=== PATIENT | female | born 1945 | race Caucasian/White ===

== ENCOUNTER 2021-04-28 14:55 | Outpatient (REF) | payer MEDICARE, MEDICAID, SELFPAY ==
--- NOTE | ~2021-04-28 | MM_ITS ---
EXAMINATION: MM SCREENING DIGITAL BREAST TOMOSYNTHESIS, BILATERAL CLINICAL INFORMATION: Screening. Asymptomatic. The lifetime risk of breast cancer based on the Tyrer-Cuzick Model is 2%. COMPARISON: Mammography: 04/09/2019, 08/19/2016 TECHNIQUE: Digital breast tomosynthesis is performed in both the craniocaudal and mediolateral oblique views along with computer-aided detection (CAD). Synthesized 2D images are generated from the tomosynthesis. FINDINGS: There are scattered areas of fibroglandular density (ACR BI-RADS breast composition Category b). There are no significant masses, abnormal calcifications, or other abnormalities. Parenchymal pattern is similar to prior exams. No developing density. The axilla and skin contours are unremarkable. MM/MM tomosynthesis screening BI IMPRESSION: No mammographic evidence of malignancy. ASSESSMENT: BI-RADS 1: Negative RECOMMENDATION: Routine annual mammography screening. This patient's information was entered into a reminder system with a target due date for their next mammogram.
== END 2021-04-28 14:56 | disposition home or self-care (01) ==
LOC: HO.MAMMO 14:55
PROVIDERS: PCP Family Medicine; Visit Provider Family Medicine
DX: Z12.31 Encounter for screening mammogram for malignant neoplasm of breast (principal)
CPT/HCPCS: 77063; 77067

== ENCOUNTER 2021-10-05 19:49 | Emergency (ER) | payer MEDICARE, MEDICAID, SELFPAY ==
--- NOTE | ~2021-10-05 | XR_ITS ---
EXAMINATION: XR HAND, LEFT CLINICAL INFORMATION: Hand bruised/pain. COMPARISON: None TECHNIQUE: PA, lateral, and oblique views of the left hand. FINDINGS: Questionable subtle nondisplaced fracture in the radial surface of the middle phalanx of the fifth digit. No other fractures. Alignment is anatomic. Nonspecific cystic changes in the lunate. Diffuse soft tissue swelling. No unexpected foreign bodies. XR/XR hand LT min 3V IMPRESSION: Questionable subtle nondisplaced fracture in the radial surface of the middle phalanx of the fifth digit. Correlate for tenderness. Lunate subchondral cysts are nonspecific but likely related with degenerative changes. Correlate for pain.
[2021-10-05 21:11] VITALS: BP 115/96; PULSE 68; RESP 18; TEMP 36.8; O2SAT 99; BMI 27.6
--- NOTE | 2021-10-05 21:46 | ED_ITS ---
HPI - General Adult General Chief complaint: General Medical Stated complaint: Lump on right hand Time Seen by Provider: 10/05/21 21:46 Source: patient and family Mode of arrival: ambulatory Limitations: no limitations History of Present Illness HPI narrative: This is a 76-year-old female past medical history significant for osteopenia, hypertension, anemia currently taking daily aspirin presenting to the emergency department with bruising to the dorsal aspect of the left hand that began suddenly earlier today. According to daughter and patient did not hit her hand on anything. She reports pain if she touches the bruise. However she states that there is no numbness, tingling, loss of sensation to fingers hand or wrist. Patient tells me she can move her wrist and her fingers per usual. She is worried because she is on aspirin. No history of PE or DVT. Patient denies chest pain, shortness of breath, nausea, vomiting, fevers, chills, calf pain, calf swelling. Onset (ago): day(s) (1) Location: left and upper extremity Radiation: non-radiation Pain Consistency: other (only if she touches bruise ) Relieving factors: none Exacerbating factors: none Associated symptoms: denies other symptoms Treatments prior to arrival: none Related Data Allergies Allergy/AdvReac Type Severity Reaction Status Date / Time No Known Allergies Allergy Verified 10/05/21 21:10 Review of Systems Review of Systems: Constitutional : No Weight loss, No Fever, No Chills, No Fatigue, No Malaise ENT/Mouth : No sore throat, No Rhinorrhea Eyes: No Eye Pain, No Swelling, No Redness Cardiovascular : No Chest Pain, No SOB, No Dyspnea on Exertion, No Orthopnea, No Edema, No Palpitations Respiratory : No Cough, No Sputum, No Wheezing Gastrointestinal : No Nausea, No Vomiting, No Diarrhea, No Constipation, No abdominal Pain, No Hematochezia, No Melena Genitourinary : No Dysuria, No Urinary Frequency, No Hematuria, Musculoskeletal : No joint pain, No Myalgias, No Joint Swelling Skin : No Skin Lesions, No rash Neuro : No Weakness, No Numbness, No Dizziness, No Headache Psych : No Anxiety/Panic, No Depression Heme/Lymph: + Bruising, No Bleeding,No Lymphadenopathy All other systems reviewed and are negative PMFSH Past Medical History Attestation statement: The following information was validated with the patient. Source: old records reviewed and nursing notes reviewed Surgical History (Updated 09/20/21 @ 09:51 by JOSHUA Palomo) History of cholecystectomy Social History Social History Advance Directives: No Advance Directives Information Provided: No Physical Exam ED Vital Signs: Vital Signs - 24 hr 10/05/21 21:11 Temperature 98.2 F Pulse Rate 68 Respiratory Rate 18 Blood Pressure 115/96 H Pulse Oximetry 99 BMI result Body Mass Index 27.6 VSS Appearance: Alert.? Oriented X3.? No acute distress.? Head: Normocephalic, atraumatic, no step-offs or deformities Eyes: Pupils equal, round and reactive to light.? ENT: Pharynx normal.? Neck: Normal inspection.? Neck supple.? CVS: Normal heart rate and rhythm.? Pulses normal.? Respiratory: No respiratory distress.? Breath sounds normal.? Abdomen: Soft and nontender.? Skin: Skin warm and dry.? Normal skin color.? Normal skin turgor.?+ ecchymosis to the left dorsal aspect of hand images below. Bilateral upper extremities with 2+ radial pulses. Less than 2nd capillary refill to all digits in upper extremities. Sensory and motor intact to bilateral upper extremities, hands and fingers. Bilateral upper extremities warm, pink and dry. No pain with range of motion of fingers, wrists, or palpation over metacarpals. Extremities: No lower extremity edema.? No calf ttp. 5/5 strength to bilateral upper and lower extremities Back: No midline tenderness, no C-spine tenderness, full range of motion, no CVA tenderness bilaterally Neuro: Oriented X 3.? No motor deficit.? No sensory deficit. CN 2-12 intact Course Course Course Narrative: Discussed case with Dr. Woods. Susy contusion. Will apply a compression dressing and do an xray of left hand. Reevaluation(s) Reevaluation #1: X-ray of them a this digit shows a middle phalanx subtle nondisplaced fracture. Patient likely hit her hand on something she does not recall a specific instance however she says it is possible. Advised her to follow-up with her PCP tomorrow and return with new or worsening symptoms. Pressure dressing has been assessed applied over the hematoma. And a finger splint has been applied to the left 5th digit. Daughter and patient aware of worrisome signs. They will call her PCP 1st thing tomorrow morning. I gave them a copy of the x-ray. Time: 23:10 Medical Decision Making MDM Narrative Medical decision making narrative: 2149 76 yo female pmhx osteopenia, HLD, HTN, anemia presents to ed w/ atraumatic bruising to left hand. Patient on ASA PE- bruise to left hand with pain to palpation overlying bruise. Sensation to of bilateral finger tips intact. Capillary refill less than 2 seconds bilateral radial pulses 2+ equal bilateral. No pain with range of motion of wrist. History and physical examination not consistent with acute arterial occlusion, unlikely that this is a venous embolism. Likey contusion Plan- xray, no need for US at this time neuro intact, strong pulses not consistent with arterial occlusion. Unlikely venous emboli Medical Records Medical records reviewed: Yes I reviewed the patient's medical records. Lab Data Lab results reviewed: Yes I reviewed the patient's lab results. Critical Care Time Critical Care Time Critical Care Time: No Discharge Plan Discharge Clinical Impression: Hematoma, Contusion Patient Disposition: Home, Self-Care Instructions: R.I.C.E. Treatment (ED), Bone Bruise (ED) Additional Instructions: Take your medications as prescribed. Follow-up with your primary care provider tomorrow, you may want to get an outpatient ultrasound if this dosent improve or worsens. Return to the emergency department with new or worsening symptoms. Such as loss of sensation, numbness, tingling, severe pain, arm swelling, shortness of breath, chest pain, fevers chills, weakness. In case of emergency call 911 [place] medicamentos seg?n lo prescrito. Jack un seguimiento con love proveedor de atenci?n primaria ma?marcy, es posible que desee hacerse leopoldo ecograf?a ambulatoria si esto no mejora o empeora. Regrese al departamento de emergencias con s?ntomas nuevos o que empeoran. [place] p?rdida de sensibilidad, entumecimiento, hormigueo, dolor intenso, hinchaz?n de brazos, dificultad para respirar, dolor de pecho, fiebre, escalofr?os, debilidad. En joss de emergencia llama al 911 Referrals: Physician,Lashaun J [Primary Care Provider] - 2 days Stand Alone Forms: Work/School Release Print Language: Northern Irish
--- NOTE | 2021-10-05 23:23 | PC.NURSE ---
PT LEFT HAND BRUISE PRESSURE DSD APPLIED FINGER SPLINT IN PLACE TO LEFT PINKY FINGER.
== END 2021-10-05 23:27 | disposition home or self-care (01) ==
PROVIDERS: Emergency Provider Student in an Organized Health Care Education/Training Program
DX: S60.222A Contusion of left hand, initial encounter (principal); S62.657A Nondisplaced fracture of middle phalanx of left little finger, initial encounter for closed fracture; X58.XXXA Exposure to other specified factors, initial encounter; I10 Essential (primary) hypertension; Z79.82 Long term (current) use of aspirin; Y93.9 Activity, unspecified; Y92.9 Unspecified place or not applicable; Y99.9 Unspecified external cause status
CPT/HCPCS: 29130; 73130; 99283

== ENCOUNTER 2021-10-14 13:51 | Outpatient (REF) | payer MEDICARE, MEDICAID, SELFPAY ==
--- NOTE | ~2021-10-14 | XR_ITS ---
EXAMINATION: XR HAND, LEFT CLINICAL INFORMATION: Fracture COMPARISON: Previous x-ray September 2021 TECHNIQUE: PA, lateral, and oblique views of the left hand. FINDINGS: The questioned fracture of the middle phalanx of the fifth finger on September 2021 exam is not appreciated. No fracture or dislocation is seen. The joint spaces are normal. Soft tissues are normal. There are small cysts lunate and triquetrum. XR/XR hand LT min 3V IMPRESSION: No fracture seen.
== END 2021-10-14 13:52 | disposition home or self-care (01) ==
LOC: HO.XRAY 13:51
PROVIDERS: Absent Provider Family Medicine; PCP Family Medicine; Visit Provider Registered Nurse Community Health
DX: S62.657D Nondisplaced fracture of middle phalanx of left little finger, subsequent encounter for fracture with routine healing (principal)
CPT/HCPCS: 73130

== ENCOUNTER 2021-11-26 10:07 | Outpatient (REF) | payer MEDICARE, MEDICAID, SELFPAY ==
--- NOTE | ~2021-11-26 | MM_ITS ---
EXAMINATION: BONE DENSITOMETRY CLINICAL INDICATION: Other disorders of bone density and structure. COMPARISON: None (current study represents initial baseline exam). TECHNIQUE: Using a [employer] DXA System (software version: 13.1) manufactured by [employer], dual-energy x-ray absorptiometry was performed of the lumbar spine and left hip. The images are of good technical quality. Summary results are attached. FINDINGS: AP SPINE L1-L4: BMD 0.935 g/cm2, Z-score -0.3, T-score -2.0, osteopenia. LEFT FEMUR, NECK: BMD 0.805 g/cm2, Z-score 0.3, T-score -1.7, osteopenia. LEFT FEMUR, TOTAL: BMD 0.900 g/cm2, Z-score 0.9, T-score -0.9, normal. IDENTIFIED RISK FACTORS: Rheumatoid arthritis, history of fracture (adult). Early menopause, secondary osteoporosis. HISTORY OF FRACTURE: Wrist. MEDICATIONS: Calcium supplements or multivitamin, vitamin D. MM/XR DEXA axial skeleton IMPRESSION: 1. DIAGNOSIS: Osteopenia based on the lowest T-score value of -2.0 in the lumbar spine applying World Health Organization criteria. 2. 10-YEAR FRACTURE RISK PREDICTION, FRAX: Major osteoporotic fracture (clinical spine, forearm, hip or shoulder) 11.2%. Hip fracture 2.3%. 3. Treatment Recommendations: NOF guidelines recommend consideration for treatment in postmenopausal women and men age 50 and older presenting with the following: -A hip or vertebral (clinical or morphometric) fracture. -T-score less than or equal to -2.5 at the femoral neck or spine after appropriate evaluation to exclude secondary causes. -Low bone mass at the hip or spine and a 10-year fracture probability by FRAX of greater than or equal to 3% for hip fracture or greater than or equal to 20% for major osteoporotic fracture based on the [place] adapted WHO algorithm. 4. Other Recommendations: All treatment decisions require clinical judgment and consideration of individual patient factors, including patient preferences, comorbidities, previous drug use, risk factors not captured in the FRAX model (e.g. frailty, falls, vitamin D deficiency, increased bone turnover, interval significant decline in bone density) and possible under or overestimation of fracture risk by FRAX. Additional medical evaluation for secondary cause of low bone mineral density may be appropriate. FUTURE SCAN RECOMMENDATION: People with diagnosed cases of osteoporosis or at high risk for fracture should have regular bone mineral density tests. For patients eligible for Medicare, routine testing is allowed once every 2 years. The testing frequency can be increased to one year for patients who have rapidly progressing disease, those who are receiving or discontinuing medical therapy to restore bone mass, or have additional risk factors.
== END 2021-11-26 10:08 | disposition home or self-care (01) ==
LOC: HO.MAMMO 10:07
PROVIDERS: Visit Provider Family Medicine
DX: Z13.820 Encounter for screening for osteoporosis (principal); Z78.0 Asymptomatic menopausal state; M85.80 Other specified disorders of bone density and structure, unspecified site
CPT/HCPCS: 77080

== ENCOUNTER 2021-12-01 12:52 | Outpatient (REF) | payer MEDICARE, MEDICAID, SELFPAY ==
--- NOTE | ~2021-12-01 | XR_ITS ---
EXAMINATION: XR HAND, LEFT CLINICAL INFORMATION: Left hand pain COMPARISON: None TECHNIQUE: PA, lateral, and oblique views of the left hand. FINDINGS: There is minimal loss of PIP and DIP joint space but no bony erosive changes seen. There is mild flexion deformity. DIP joint second digit. No fracture, loose bodies or spurring noted. Mild soft tissue swelling PIP joints second through fifth digits. XR/XR hand LT min 3V IMPRESSION: Early mild degenerative arthritic changes PIP and DIP joints with mild flexion deformity DIP joints second digit. No acute fracture seen.
== END 2021-12-01 12:53 | disposition home or self-care (01) ==
LOC: HO.HOSX 12:52
PROVIDERS: PCP Family Medicine; Visit Provider Physician Assistant
DX: M19.042 Primary osteoarthritis, left hand (principal)
CPT/HCPCS: 73130; 99202

== ENCOUNTER 2021-12-28 13:43 | Outpatient (RCR) | payer MEDICARE, MEDICAID, SELFPAY ==
--- NOTE | 2021-12-28 16:11 | MHC.OT.OEV ---
[address] [phone] F: [phone] Occupational Therapy Evaluation Diagnosis: RA bilateral hands Date of Onset: 10/05/21 Date of Surgery: Attending Provider: Macie Harding Prescribed Treatment: Eval and alberto JAIME Follow Up Appointment: History of Current Condition: Pt reports left hand hematoma of unknown cause. Seen in the ED 10/05/21 Pt to follow up with her PCP Pt seen by [facility] on 12/01/21 due to pt complaint of continued hand pain and weakness Xray shows mild degenerative arthritis, PIP and DIP jts. no acute fx. Pt referred to OT Significant Medical History: HTN, Osteopenia, Osteoarthritis Precautions/Contraindications: Patient Goals: Hand strength to do my housework Hand Dominance: Right Observations: QuickDASH Score: 54 Prior Level of Function and Occupation Self Care, Employment, Leisure: Assist with heavy housekeeping, transportation ... Watches TV, light homemaking, indep with ADL Living Situation, Family and/or Social Support: Lives alone Family cleans weekly and provides transportation.. Current Level of Function and Occupation Self Care, Employment, Leisure: Inc difficulty due to inc in left hand pain Pt unable to specify Sleep: Reports severe difficulty due to severe pain Driving: NA Vision: Low vision. Needs large print Balance: Pain Assessment Pain Score: 8 Pain Scale Used: Numeric (0 - 10) Pain Location and Description: 4-8 ache Aggravating Factors: Worse at night .. whole body pain at night Alleviating Factors: Unable to specify Skin and Soft Tissue Assessment Skin and Soft Tissue: Atrophy Comments: Bilateral UE atrophy Left index DIP ext lag Nerve assessment Ulnar Nerve: Median Nerve: Radial Nerve: Comments: MMT 3+ shoulder to hand bilaterally Sensory Assessment Temperature: Light Touch: Proprioception: Vibration: Comments: Deferred Edema Assessment Upper Extremity: WNL Lower Extremity: Comments: Dexterity Assessment Dexterity: Not Tested Comments: Special Tests Comments: AROM(PROM) Strength Cervical Cervical Flexion: Cervical Extension: Cervical Lateral Flexion: Cervical Rotation: Comments: Shoulder Flexion: Extension: Abduction: Internal Rotation: External Rotation: Comments: WFL Flexion: Extension: Abduction: Internal Rotation: External Rotation: Comments: 3+/5 bilaterally Elbow Flexion: Extension: Pronation: Supination: Comments: WFL Flexion: Extension: Pronation: Supination: Comments: 3+ Wrist Flexion: Extension: Ulnar Deviation: Radial Deviation: Comments: WFL Flexion: Extension: Ulnar Deviation: Radial Deviation: Comments: R 4- L 3+ Thumb Thumb CMC Flexion: Thumb MCP Flexion: Thumb IP Flexion: Radial Abduction: Palmar Abduction: Miles (Kapandji 0-10): Comments: WFL Digits Index MCP: PIP: DIP: Long MCP: PIP: DIP: Ring MCP: PIP: DIP: Small MCP: PIP: DIP: Comments: WFL Gross Grasp: R 15 lb L 12 lb Lateral Pinch: R 3 lb L 3 lb Two-Point Pinch: R 2 lb L 1 lb Three-Jaw Ivan: R 4 lb L 2 lb Comments: Patient Education Primary Language: Interactive Web Developer Required: Yes Current Knowledge: Minimal, needs reinforcement Teaching Method: Demonstration Handouts Verbal Education Needs Identified on Evaluation: ADL's Equipment Use Exercise How did patient/family demonstrate learning? Patient verbalizes Needs reinforcement Barriers to Learning: None Readiness for Learning: Accepting Who was educated? Patient Comments: Plan of Care Assessment: Pt is a 76 yo female with c/o con't left hand weakness and pain since a contusion injury to her left hand two months ago. Pt hx includes osteopenia, OA, and HTN Pt previously living alone and indep with ADL and light homemaking with family assist for heavy housework and transportation Today pt presents with generalized weakness with severe bilateral hand weakness and left hand pain. Pt with benefit from OT for UE strengthening and ADL training for inc ease and inc independence with daily activities STG Duration: 2 wks Short Term Goals: Pt with demo indep with her HEP with minimal cuing Dec co of left hand pain to <2/10 at rest Tolerated left UE ther ex with yellow theraband and yellow therapy putty Report awareness of AD for jt protection and inc indep with homemaking tasks LTG Duration: 4 wks Correspondent Goals: Inc left quiller tender strength to > 15 lb Indep with HEP Dec left hand pain to 3/10 or less with use of AD as needed Quick DASH to <30 pts Frequency and Duration: The patient will be seen 1x wk x 4 wks Treatment Plan: Therapeutic Exercise Therapeutic Activity Home Exercise Program Patient Education ADL Training Ultrasound Paraffin Pt reports she is only available for OT 1x wk due to lack of transportation Electronically Signed By: Manda Murray OT CHT CHT Reviewed/agree with student documentation: N/A Therapist: Please sign and return to therapist, Thank you for your referral.
--- NOTE | 2022-01-17 08:54 | MHC.OT.DC ---
[address] [phone] F: [phone] Occupational Therapy Discharge Note Provider: Macie Harding Diagnosis: RA bilateral hands Date of Surgery: Date of Evaluation: 12/28/21 Date of Discharge: 01/17/22 Treatments to Date: 1 Cancellations to Date: No Shows to Date: 1 Discharge Status: Recommend MD Follow-up Discharge Summary: OT Eval completed. See eval for details Pt practice with beige putty soiled linen distributor and pinch. Issued for HEP Reviewed UE ROM ex with printed instructions issued for HEP [ End ]Pt no showed 01/06/22 and has no scheduled appt. Electronically Signed By: Manda Murray OT CHT CHT Reviewed/agree with student documentation: N/A Therapist: Please Sign and return to therapist, thank you for your referral.
== END 2022-01-17 08:54 | disposition home or self-care (01) ==
LOC: HO.OT 13:43
PROVIDERS: Visit Provider Physician Assistant
DX: M06.9 Rheumatoid arthritis, unspecified (principal)
CPT/HCPCS: 97110; 97166

== ENCOUNTER → 2021-12-29 10:59 | Outpatient (BNVA) | payer MEDICARE, MEDICAID, SELFPAY | PROVIDERS: PCP Family Medicine; Visit Provider Internal Medicine Cardiovascular Disease | DX: R07.2 Precordial pain (principal); R06.02 Shortness of breath | CPT/HCPCS: 93005; 99202 ==

== ENCOUNTER → 2022-01-04 09:56 | Outpatient (BNVA) | payer MEDICARE, MEDICAID, SELFPAY | PROVIDERS: PCP Family Medicine; Visit Provider Nurse Practitioner Family | DX: Z12.11 Encounter for screening for malignant neoplasm of colon (principal) | CPT/HCPCS: 99202 ==

== ENCOUNTER → 2022-01-18 10:07 | Outpatient (REF) | payer MEDICARE, MEDICAID, SELFPAY ==
--- NOTE | ~2022-01-18 | NM_ITS ---
Myocardial perfusion study Indication: Precordial chest pain to evaluate for myocardial ischemia Technique: The patient was brought in for a Lexiscan perfusion study on 01/18/2022. Patient performed low-level exercise and was injected 0.4 mg of Lexiscan intravenously. Within a minute of injection, 25 mCi of sestamibi was given intravenously. Images were obtained using the SPECT gamma camera interlaced with the gating device. Images were obtained in supine position. Resting perfusion study was performed on 01/21/2020.. Patient was administered 25 mCi of sestamibi intravenously at rest. Images were then obtained in supine position. Images obtained with and without CT attenuation. Total DLP 92 mGy-cm. Images were processed with the software and compared side to side in short axis, horizontal long axis and vertical long axis views. Findings: The stress perfusion study showed non attenuated images show minimally reduced uptake in the basal and mid inferior as well as mildly reduced uptake in the inferoapical wall of the LV myocardium. Attenuation corrected images show mildly reduced uptake in the apex of the LV myocardium.. The gated study shows normal LV systolic function with calculated LVEF of greater than 70 %. LV cavity is normal in size. The gated study shows normal systolic wall thickening and contraction of segments. Resting study shows non attenuated images show improved uptake in the inferoapical wall of the LV myocardium. Attenuation corrected images of the LV myocardium.. Gating at rest reveals normal systolic wall motion with ejection fraction at greater than 70 %. The findings are consistent with possible apical ischemia, equivocal finding. NM/NM stanton perf SPECT rest & str Impression: 1. Myocardial perfusion imaging study shows possible apical ischemia 2. Gated LVEF is greater than 70% 3. Transient ischemic dilatation not present EKG is nondiagnostic for ischemia
--- NOTE | 2022-01-18 10:13 | CA_ITS ---
Acquisition Time: 2022-01-18 10:35:36 Total Exercise Time: 00:02:00 Test Indications: HTN Medications: ASA LOSARTAN MELOXICAM METOPROLOL SIMVASTATIN Protocol: LEXISCAN Max HR: 097 BPM 67% of Pred: 144 BPM Max BP: 116/068 mmHG Max Work Load: 1.6 METS Pharmacological stress test with Lexiscan injection, while walking slow on treadmill, with mild sob, no chest discomfort, without arrythmia, with normotensive response to injection, with nondiagnostic EKG for ischemia. Nuclear images pending. Test reviewed with Dr Dillon. Referred By: Shin Ortega Overread By: FABIENNE MART
== END ==
LOC: HO.CARD 10:07
PROVIDERS: PCP Family Medicine; Visit Provider Internal Medicine Cardiovascular Disease
DX: R07.2 Precordial pain (principal)
CPT/HCPCS: 78452; 93017; A9500; J0280; J2785

== ENCOUNTER 2022-02-02 10:55 | Outpatient (REF) | payer MEDICARE, MEDICAID, SELFPAY ==
[2022-02-02 12:06] LABS: Anion Gap 10 (12-20); Blood Urea Nitrogen 25 mg/dL (9-16); Calcium 9.5 mg/dL (8.4-10.2); Carbon Dioxide 27 mmol/L (22-29); Chloride 108 mmol/L (96-108); Estimated Glomerular Filt Rate > 60; Glucose Random 99 mg/dL (60-115); Potassium 4.6 mmol/L (3.3-5.1); Sodium 140 mmol/L (135-145)
== END 2022-02-02 10:56 | disposition home or self-care (01) ==
LOC: HO.LAB 10:55
PROVIDERS: PCP Family Medicine; Visit Provider Internal Medicine Cardiovascular Disease
DX: R07.2 Precordial pain (principal); I10 Essential (primary) hypertension
CPT/HCPCS: 36415; 80048

== ENCOUNTER → 2022-02-08 14:02 | Outpatient (REF) | payer MEDICARE, MEDICAID, SELFPAY ==
--- NOTE | 2022-02-08 14:07 | CA_ITS ---
Transthoracic Echocardiogram Patient (Last, First, Middle): Carolin Avila, Gender: Female Date of : 1945 Age: 76 Procedure Date: 02/08/2022 Procedure Type: Transthoracic Echocardiogram Location: OP Height: 152.4 cm Weight: 65.77 kg BSA: 1.63 m2 Heart Rate: bpm BP: 160 / 75 mmHg Spine Surgeon: YOSSI Referring MD: Shin Ortega MD Symptoms: R06.02 - Shortness of breath Study Quality: Adequate ECG Rhythm: Sinus Conclusions: - The left ventricular systolic function is normal. The calculated ejection fraction is 66% by biplane method. - There is mild calcification of the aortic valve. - No obvious valvular pathology seen on this study. Findings Left Ventricle Normal left ventricular cavity size. There is normal left ventricular wall thickness. The left ventricular systolic function is normal. The calculated ejection fraction is 66% by biplane method. There is no evidence of regional wall motion abnormalities. Diastolic function is normal for age. Right Ventricle Normal right ventricular cavity size and systolic function. Atria The left atrium is mildly dilated. The right atrium is normal in size. Aortic Valve There is mild calcification of the aortic valve. There is no aortic valve stenosis. There is trace (trivial) aortic valve regurgitation. Mitral Valve The mitral valve appears normal. There is trace mitral valve regurgitation. There is no mitral valve stenosis. Pulmonic Valve The pulmonic valve is likely normal. Tricuspid Valve Normal tricuspid valve structure. There is trace tricuspid valve regurgitation. The pulmonary artery systolic pressure is normal. Great Vessels The aortic annulus, sinuses of valsalva, asc aorta, and aortic arch are normal in size. Venous The inferior vena cava is normal in size and collapses greater than 50% with inspiration. Pericardium/Pleural There is no evidence of pericardial effusion. Prior Study Comparison No significant change compared to prior study dated: 03/23/2018. Recommendations, Care & Conclusions No obvious valvular pathology seen on this study. Measurements 2D Linear Measurements IVSd: 0.91 0.6-0.9/0.6-1.0 cm LVIDd: 3.94 3.9-5.3/4.2-5.9 cm LVIDd Index: 2.42 2.4-3.2/2.2-3.1 cm/m2 LVIDs: 2.02 2.0-3.6 cm LVPWd: 0.95 0.7-1.1 cm LA Diam: 3.60 2.7-3.8/3.0-4.0 cm LAIDs Index: 2.21 1.5-2.3 cm/m2 LV Mass: 139.31 67-162/88-224 g LV Mass Index: 85.46 43-95/49-115 g/m2 LVOT Diam: 2.00 3.0+(-)1.3 cm 2D Systolic Function EF 4C: 66.10 >55% EF 2C: 62.60 >55% EF BiP: 66.30 >55% Mitral Valve MV Pk E: 0.84 MV PK A: 1.02 MV Decel Time: 273.00 E/A: 0.80 E'Lateral: 7.83 E'Medial: 6.64 E/E' Med: 12.70 E/E' Lat: 10.70 PHT: 80.00 MVA PHT: 2.75 Decel Petroleum: 3.08 Aortic Valve AoV Pk Noble: 1.90 AoV Mn Noble: 1.24 AoV VTI: 0.48 AoV Pk Grad: 14.00 Aov Mn Grad: 7.00 BRAD Cont.VTI: 2.08 LVOT LVOT Pk Noble: 1.09 LVOT Mn Noble: 0.72 LVOT VTI: 0.32 LVOT Pk Grad: 5.00 LVOT Mn Grad: 2.00 LVOT Diam: 2.00 LVOT Area: 3.14 Diastolic Function MV Pk E: 0.84 MV Pk A: 1.02 E/A: 0.80 E'Medial: 6.64 E/E' Med: 12.70 E' Laterial: 7.83 E/E' Lat: 10.70 Right Ventricle TAPSE (mm): 22.60 TVS' Noble: 10.10 Tricuspid Valve TR Pk Noble: 2.43 TR Pk Grad: 24.00 RA Press: 3.00 RVSP: 27.00 Great Vessels Aorta Sinus of Valsalva: 2.98 2.0-3.[address] Ridge: 2.43 1.7-3.4 cm Ao Asc: 3.10 2.1-3.4 cm Ao Arch: 2.80 Updated in Other Vendor System with Status of Final Jay Dillon MD electronically signed on 02/11/2022 11:43:48 AM with status of Final
== END ==
LOC: HO.CARD 14:02
PROVIDERS: PCP Family Medicine; Visit Provider Internal Medicine Cardiovascular Disease
DX: R06.02 Shortness of breath (principal)
CPT/HCPCS: 93306

== ENCOUNTER 2022-02-19 14:46 | Emergency (ER) | payer MEDICARE, MEDICAID, SELFPAY ==
--- NOTE | ~2022-02-19 | XR_ITS ---
EXAMINATION: XR KNEE, RIGHT CLINICAL INFORMATION: Right knee pain. No known injury COMPARISON: None TECHNIQUE: Four views of the right knee. FINDINGS: There is mild reduction in the tricompartment joint space with periarticular spurring. No acute fracture, loose bodies or bony erosive changes. There is minimal suprapatellar joint effusion. XR/XR knee RT 3V IMPRESSION: Degenerative arthritic changes of the tricompartment with mild suprapatellar joint effusion. No visible acute fracture or dislocation seen.
--- NOTE | ~2022-02-19 | US_ITS ---
EXAMINATION: US VENOUS ULTRASOUND WITH DOPPLER LOWER EXTREMITY, RIGHT CLINICAL INFORMATION: Calf pain COMPARISON: None TECHNIQUE: Ultrasound of the deep veins is performed from the hip to the calf with compression sonography and color and pulse Doppler assessment. Spectral analysis with color-flow imaging is performed. FINDINGS: There is normal venous compression and respiratory variation and augmented flow. The visualized common femoral vein, superficial femoral vein, profunda femoral vein, popliteal vein, and the trifurcation region shows no evidence of deep venous thrombosis. There is no significant popliteal fossa cyst. If the patient's symptoms persist, followup ultrasound in 5 days 7 days might be of value to exclude proximal propagation from a non-visualized calf vein. US/US venous duplex LE RT IMPRESSION: No DVT demonstrated in the right lower extremity.
[2022-02-19 14:54] VITALS: BP 153/64; PULSE 64; RESP 18; TEMP 36.8; O2SAT 99; BMI 29.5
--- NOTE | 2022-02-19 18:11 | ED_ITS ---
HPI - Extremity Problem General Chief complaint: Extremity Problem Stated complaint: swollen knee Time Seen by Provider: 02/19/22 16:22 History of Present Illness HPI Narrative: Patient complains of right knee pain for past several days without injury, no redness no fever no injury, she can walk on it but it does hurt to walk on Related Data Home Medications Medication Instructions Recorded Confirmed calcium acetate 667 mg tablet 1,334 mg PO TID 12/01/21 12/29/21 acetaminophen 650 mg 650 mg PO Q8H 12/29/21 12/29/21 tablet,extended release (Tylenol Arthritis Pain) aspirin 81 mg tablet,delayed 81 mg PO DAILY 12/29/21 12/29/21 release calcium carbonate 500 mg calcium 500 mg PO BID 12/29/21 12/29/21 (1,250 mg) tablet (Oyster Shell Calcium 500) ferrous gluconate 324 mg (38 mg 324 mg PO DAILY 12/29/21 12/29/21 iron) tablet meloxicam 15 mg tablet 15 mg PO DAILY 12/29/21 12/29/21 metoprolol tartrate 25 mg tablet 25 mg PO DAILY 12/29/21 12/29/21 simvastatin 40 mg tablet 40 mg PO QPM 12/29/21 12/29/21 cholecalciferol (vitamin D3) 50 50 mcg PO DAILY 01/04/22 mcg (2,000 unit) tablet terbinafine HCl 1 % topical cream appl topical BID 01/04/22 triamcinolone acetonide 0.1 % topical BID 01/04/22 topical ointment Previous Rx's Medication Instructions Recorded losartan 50 mg tablet 50 mg PO BID #60 tabs 12/29/21 bisacodyl 5 mg tablet,delayed 10 mg PO ONCE 1 day #2 tabs 01/04/22 release (Dulcolax (bisacodyl)) polyethylene glycol 3350 17 238 g PO ONCE #238 grams 01/04/22 gram/dose oral powder (Miralax) acetaminophen 500 mg tablet 1,000 mg PO QID PRN pain #30 tabs 02/19/22 naproxen 500 mg tablet (Naprosyn) 500 mg PO BID PRN pain #14 tabs 02/19/22 Allergies Allergy/AdvReac Type Severity Reaction Status Date / Time No Known Allergies Allergy Verified 12/29/21 10:57 Review of Systems Review of Systems: Positive for right knee pain Negatives are no fever no chills no dizziness no weakness no headache no neck pain no back pain no radiating pain no redness no warmth no numbness weakness or tingling no other joint pain or swelling no skin rash Yes all other systems are reviewed and are negative [facility] Past Medical History Source: nursing notes reviewed Surgical History History of cholecystectomy Family History Family History (Updated 01/04/22 @ 10:17 by Luisana Meyer [facility]) Mother Cancer Family/Other Colon cancer Social History Social History Patient Tobacco Use Status: Never used Tobacco Advance Directives: No Advance Directives Information Provided: No Physical Exam Vital Signs: Vital Signs: Last Vital Signs Temp 98.3 F 02/19/22 14:54 Pulse 64 02/19/22 14:54 Resp 18 02/19/22 14:54 BP 153/64 H 02/19/22 14:54 Pulse Ox 99 02/19/22 14:54 O2 Del Method 02/19/22 14:54 BMI result Body Mass Index 29.5 General appearance no acute distress Head is normocephalic atraumatic Neck is supple nontender The back full range of motion Respiratory no distress Abdomen soft nontender Extremities the right knee has mild swelling no redness no warmth no obvious effusion, it extends to 180 in flexes close to 90, neurovascular intact distal, skin is intact no wounds Right leg exam there is tenderness to posterior knee to posterior calf and there is no calf swelling no redness or warmth Other extremities normal Skin no rashes Course Course Course Narrative: Right leg ultrasound to check for DVT was negative for DVT, no other acute finding X-ray of the right knee showed evidence of osteoarthritis and a small effusion Patient was given a walker and ambulates easily with a walker, she will follow with orthopedist She requested a prescription for anti-inflammatory she has no renal problems no history of GI bleeding but I did see that she had been given a prescription for meloxicam and she said she thinks she is out of it but knows not to take meloxicam if she takes Naprosyn Discharge Plan Discharge Clinical Impression: Osteoarthritis of right knee Patient Disposition: Home, Self-Care Additional Instructions: Ultrasound did not show any blood clot X-ray showed some arthritis in the knee which is probably causing her pain Follow with orthopedist for further evaluation Return any time any worse condition or any concerns Prescriptions: New naproxen [Naprosyn] 500 mg tablet 500 mg PO BID PRN (Reason: pain) Qty: 14 0RF acetaminophen 500 mg tablet 1,000 mg PO QID PRN (Reason: pain) Qty: 30 0RF No Action calcium acetate 667 mg tablet 1,334 mg PO TID cholecalciferol (vitamin D3) 50 mcg (2,000 unit) tablet 50 mcg PO DAILY triamcinolone acetonide 0.1 % ointment topical BID terbinafine HCl 1 % cream topical BID bisacodyl [Dulcolax (bisacodyl)] 5 mg tablet,delayed release (DR/EC) 10 mg PO ONCE 1 Days Qty: 2 0RF Rx Instructions: take 2 tabs at noon the day before your colonoscopy polyethylene glycol 3350 [Miralax] 17 gram/dose powder 238 g PO ONCE Qty: 238 0RF Rx Instructions: As directed by gastroenterology department at [facility] meloxicam 15 mg tablet 15 mg PO DAILY calcium carbonate [Oyster Shell Calcium 500] 500 mg calcium (1,250 mg) tablet 500 mg PO BID aspirin 81 mg tablet,delayed release (DR/EC) 81 mg PO DAILY simvastatin 40 mg tablet 40 mg PO QPM metoprolol tartrate 25 mg tablet 25 mg PO DAILY ferrous gluconate 324 mg (38 mg iron) tablet 324 mg PO DAILY acetaminophen [Tylenol Arthritis Pain] 650 mg tablet extended release 650 mg PO Q8H losartan 50 mg tablet 50 mg PO BID Qty: 60 2RF Referrals: Ha Steve MD [Physician] - (Right knee osteoarthritis)
== END 2022-02-19 19:07 | disposition home or self-care (01) ==
PROVIDERS: Emergency Provider Emergency Medicine; PCP Family Medicine
DX: M17.11 Unilateral primary osteoarthritis, right knee (principal); R60.0 Localized edema; Z79.899 Other long term (current) drug therapy
CPT/HCPCS: 73562; 93971; 99282; 99284

== ENCOUNTER 2022-03-28 13:22 | Outpatient (REF) | payer MEDICARE, MEDICAID, SELFPAY ==
--- NOTE | ~2022-03-28 | XR_ITS ---
EXAMINATION: XR KNEE AP STANDING CLINICAL INFORMATION: Pain COMPARISON: Previous x-ray February 2022 TECHNIQUE: AP bilateral standing view of the knees was obtained. FINDINGS: Bone alignment is normal. No fracture or dislocation is seen. There are small osteophytes at the bilateral lateral femoral tibial joints. Soft tissues tissues are unremarkable. XR/XR knee standing BI IMPRESSION: Small osteophytes at the bilateral lateral femoral tibial joints.
== END 2022-03-28 13:23 | disposition home or self-care (01) ==
LOC: HO.HOSX 13:22
PROVIDERS: Visit Provider Orthopaedic Surgery
DX: M17.11 Unilateral primary osteoarthritis, right knee (principal)
CPT/HCPCS: 20610; 73565; 99202; J1040

== ENCOUNTER → 2022-05-26 14:44 | Outpatient (BNVA) | payer MEDICARE, MEDICAID, SELFPAY | PROVIDERS: PCP Family Medicine; Visit Provider Orthopaedic Surgery | DX: M17.11 Unilateral primary osteoarthritis, right knee (principal) | CPT/HCPCS: 99212 ==

== ENCOUNTER → 2022-06-23 13:04 | Outpatient (BNVA) | payer MEDICARE, MEDICAID, SELFPAY | PROVIDERS: PCP Family Medicine; Visit Provider Physician Assistant | DX: M17.11 Unilateral primary osteoarthritis, right knee (principal) | CPT/HCPCS: 20610; J7323 ==

== ENCOUNTER → 2022-06-30 13:09 | Outpatient (BNVA) | payer MEDICARE, MEDICAID, SELFPAY | PROVIDERS: PCP General Practice; Visit Provider Physician Assistant | DX: M17.11 Unilateral primary osteoarthritis, right knee (principal) | CPT/HCPCS: 20610; J7323 ==

== ENCOUNTER → 2022-07-21 14:07 | Outpatient (BNVA) | payer MEDICARE, MEDICAID, SELFPAY | PROVIDERS: PCP General Practice; Visit Provider Physician Assistant | DX: M17.11 Unilateral primary osteoarthritis, right knee (principal); M25.561 Pain in right knee | CPT/HCPCS: 20610; J7323 ==

== ENCOUNTER → 2022-08-23 15:10 | Outpatient (BNVA) | payer MEDICARE, MEDICAID, SELFPAY | PROVIDERS: PCP General Practice; Referring Provider General Practice; Visit Provider Internal Medicine Cardiovascular Disease | DX: R07.2 Precordial pain (principal); I10 Essential (primary) hypertension | CPT/HCPCS: 99212 ==

== ENCOUNTER 2022-09-16 09:31 | Outpatient (REF) | payer MEDICARE, MEDICAID, SELFPAY ==
[2022-09-16 11:27] LABS: Anion Gap 15 (12-20); Blood Urea Nitrogen 37 mg/dL (9-16); Calcium 9.7 mg/dL (8.4-10.2); Carbon Dioxide 27 mmol/L (22-29); Chloride 104 mmol/L (96-108); Estimated Glomerular Filt Rate 50; Glucose Random 93 mg/dL (60-115); Potassium 4.6 mmol/L (3.3-5.1); Sodium 141 mmol/L (135-145)
== END 2022-09-16 09:32 | disposition home or self-care (01) ==
LOC: HO.LAB 09:31
PROVIDERS: PCP General Practice; Visit Provider Internal Medicine Cardiovascular Disease
DX: R06.02 Shortness of breath (principal); R07.2 Precordial pain
CPT/HCPCS: 36415; 80048

== ENCOUNTER 2022-12-14 15:00 | Outpatient (RCR) | payer MEDICARE, MEDICAID, SELFPAY | END 2022-12-29 11:42 | disposition home or self-care (01) | LOC: HO.PT 15:00 | PROVIDERS: PCP General Practice; Visit Provider Nurse Practitioner Primary Care | DX: M25.561 Pain in right knee (principal); M54.41 Lumbago with sciatica, right side | CPT/HCPCS: 97110; 97162 ==

== ENCOUNTER 2023-05-12 16:09 | Outpatient (REF) | payer MEDICARE, MEDICAID, SELFPAY ==
[2023-05-12 17:25] LABS: MANUAL DIFF FLAG NO
[2023-05-12 17:47] LABS: Anion Gap 18 (12-20); Blood Urea Nitrogen 24 mg/dL (9-16); Calcium 10.6 mg/dL (8.4-10.2); Carbon Dioxide 25 mmol/L (22-29); Chloride 103 mmol/L (96-108); Estimated Glomerular Filt Rate 53; Glucose Random 93 mg/dL (60-115); Magnesium 2.5 mg/dL (1.6-2.6); Potassium 4.7 mmol/L (3.3-5.1); Sodium 141 mmol/L (135-145)
[2023-05-12 17:50] LABS: Basophils Percent Auto 0.5 % (0-2); Eosinophils Percent Auto 0.2 % (0-4); Hematocrit 31.4 % (37.0-47.0); Hemoglobin 10.9 g/dl (12.0-16.0); Imm Gran Abs Auto 0.07 X10*3/uL (0.00-0.03); Imm Gran Pct Auto 1.2 % (0.0-0.4); Lymphocytes Absolute Auto 1.5 X10*3/uL (1.2-4.9); Lymphocytes Percent Auto 24.2 % (20-40); Mean Corpuscular HGB Conc 34.7 g/dl (31.0-35.0); Mean Corpuscular Volume 83.5 fL (80.0-98.0); Mean Platelet Volume 11.6 fL (9.4-12.3); Monocytes Absolute Auto 0.7 X10*3/uL (0.1-1.2); Monocytes Percent Auto 11.2 % (2-11); Neutrophils Absolute Auto 3.8 x10*3/uL (2.0-8.3); Neutrophils Percent Auto 62.7 % (45-73); Platelet Count 257 X10*3/uL (160-400); Red Blood Count 3.76 X10*6/uL (4.20-5.50); Red Cell Distribution Width 11.9 % (11.0-16.0)
[2023-05-12 18:03] LABS: Ferritin 29 ng/mL (10-250)
== END 2023-05-12 16:10 | disposition home or self-care (01) ==
LOC: HO.HHCL 16:09
PROVIDERS: Visit Provider General Practice
DX: R25.2 Cramp and spasm (principal); R79.9 Abnormal finding of blood chemistry, unspecified; I10 Essential (primary) hypertension
CPT/HCPCS: 36415; 80048; 82728; 83735; 85025

== ENCOUNTER 2023-06-19 14:01 | Outpatient (AMB) | payer MEDICARE, MEDICAID, SELFPAY ==
--- NOTE | 2023-06-19 14:06 | MHC.OFFVIS ---
Intake Vital Signs 06/19/23 14:08 Height 4 ft 11 in Weight 138 lb BMI 27.9 Intake Visit Reasons: EP-Rt knee OA, TKA Discuss Intake Note: Carolin is a 78 year old female who presents today for a follow up of her right knee to discuss TKA. hx of Euflexx 06/23/22-07/21/23, with little releif. Allergies No Known Allergies Allergy (Verified 06/30/22 13:20) HPI EP-Rt knee OA, TKA Discuss HPI Details Carolin is a 78 year old woman with right knee OA. She complains of pain with daily activity, worse with walking or using stairs. She has a hx of some relief from steroid injections, and little relief from Euflexxa injections, last done 07/21/22. She would like to discuss surgery. She manages her pain with NSAIDs & Tylenol, with some relief. She has a hx of RA affecting her bilateral hands. PFSH Surgical History History of cholecystectomy Family History Mother Cancer Family/Other Colon cancer Social History Patient Tobacco Use Status: Never used Tobacco Review of Systems Const All systems reviewed & are unremarkable except as noted in HPI and below Physical Exam Vital Signs: BMI result Body Mass Index 27.9 Const General: no acute distress, alert and awake Orientation/consciousness: patient oriented x3 HEENT Head: Yes normocephalic and Yes atraumatic Eyes EOM: EOMs intact bilaterally Resp Effort & Inspection: normal respiratory effort and able to speak in complete sentences Cardio Jugular venous distension: no JVD Skin General skin exam: turgor normal Rashes: no rashes Neuro General: patient oriented x3 Extrem Other: Right Knee: Retropatellar TTP Medial and lateral TTP Psych Appearance: grossly normal Affect: normal affect Attitude: cooperative Results Reviewed Results Reviewed: I personally reviewed relevant radiographs Moderate tricompartmental OA Assessment & Plan Assessment & Plan (1) Osteoarthritis of right knee: Code(s): M17.11 - Unilateral primary osteoarthritis, right knee Plan: This is a 78 year old woman with right knee OA. She has pain with daily activity, worse with ambulation or using stairs. She has failed conservative treatment options, including viscosupplementation, feels limited in her ADLs, and feels her QOL is diminished. I discussed her diagnosis and treatment options. I recommend a right TKA. I discussed the risks, benefits, and alternatives including, but not limited to, the risk of pain, infection, stiffness, need for further surgery as well as potential medical complications such as blood clots, pulmonary embolism and cardiac complications. I discussed the recovery timeline and process as well as the importance of PT. Carolin is a good candidate for this surgery, and she wishes to proceed with this decision. She will speak with Denise to schedule this procedure. Plan Scribed for Ha Steve MD by Memo Pond, medical reimbursement manager, on 06/19/23 at 2:30 PM, EST. Coding Level of Care Code Est Pt Level 4 (22990) Diagnoses Osteoarthritis of right knee M17.11
[2023-06-19 14:08] VITALS: BMI 27.9
== END 2023-06-19 15:02 | disposition home or self-care (01) ==
LOC: HO.HOS 14:01
PROVIDERS: PCP General Practice; Visit Provider Orthopaedic Surgery
DX: M17.11 Unilateral primary osteoarthritis, right knee (principal)
CPT/HCPCS: 99214

== ENCOUNTER → 2023-06-19 14:01 | Outpatient (BNVA) | payer MEDICARE, MEDICAID, SELFPAY | PROVIDERS: PCP General Practice; Visit Provider Orthopaedic Surgery | DX: M17.11 Unilateral primary osteoarthritis, right knee (principal) | CPT/HCPCS: 99212 ==

== ENCOUNTER 2023-07-12 15:38 | Outpatient (REF) | payer MEDICARE, MEDICAID, SELFPAY ==
[2023-07-12 16:16] LABS: MANUAL DIFF FLAG NO
[2023-07-12 16:25] LABS: Basophils Percent Auto 0.4 % (0-2); Eosinophils Percent Auto 0.3 % (0-4); Hematocrit 32.8 % (37.0-47.0); Hemoglobin 11.2 g/dl (12.0-16.0); Imm Gran Abs Auto 0.02 X10*3/uL (0.00-0.03); Imm Gran Pct Auto 0.3 % (0.0-0.4); Lymphocytes Absolute Auto 1.4 X10*3/uL (1.2-4.9); Lymphocytes Percent Auto 19.3 % (20-40); Mean Corpuscular HGB Conc 34.1 g/dl (31.0-35.0); Mean Corpuscular Hemoglobin 28.2 pg (27.0-33.0); Mean Corpuscular Volume 82.6 fL (80.0-98.0); Monocytes Absolute Auto 0.7 X10*3/uL (0.1-1.2); Monocytes Percent Auto 9.9 % (2-11); Neutrophils Percent Auto 69.8 % (45-73); Platelet Count 251 X10*3/uL (160-400); Red Blood Count 3.97 X10*6/uL (4.20-5.50); Red Cell Distribution Width 11.5 % (11.0-16.0); White Blood Count 7.2 X10*3/uL (4.8-10.8)
[2023-07-12 16:47] LABS: Anion Gap 12 (12-20); Blood Urea Nitrogen 22 mg/dL (9-16); Calcium 10.3 mg/dL (8.4-10.2); Carbon Dioxide 29 mmol/L (22-29); Chloride 101 mmol/L (96-108); Estimated Glomerular Filt Rate > 60; Glucose Random 96 mg/dL (60-115); Sodium 138 mmol/L (135-145)
== END 2023-07-12 15:39 | disposition home or self-care (01) ==
LOC: HO.HHCL 15:38
PROVIDERS: Visit Provider General Practice
DX: I10 Essential (primary) hypertension (principal)
CPT/HCPCS: 36415; 80048; 85025

== ENCOUNTER → 2023-07-31 12:32 | Outpatient (BNVA) | payer MEDICARE, MEDICAID, SELFPAY | PROVIDERS: PCP General Practice; Visit Provider Orthopaedic Surgery ==

== ENCOUNTER 2023-09-01 09:59 | Outpatient (REF) | payer MEDICARE, MEDICAID, SELFPAY ==
[2023-09-01 11:49] LABS: MANUAL DIFF FLAG NO
[2023-09-01 12:00] LABS: Basophils Percent Auto 0.3 % (0-2); Eosinophils Percent Auto 0.3 % (0-4); Hematocrit 31.7 % (37.0-47.0); Hemoglobin 10.7 g/dl (12.0-16.0); Imm Gran Abs Auto 0.02 X10*3/uL (0.00-0.03); Imm Gran Pct Auto 0.3 % (0.0-0.4); Lymphocytes Absolute Auto 1.2 X10*3/uL (1.2-4.9); Lymphocytes Percent Auto 19.1 % (20-40); Mean Corpuscular HGB Conc 33.8 g/dl (31.0-35.0); Mean Corpuscular Hemoglobin 28.3 pg (27.0-33.0); Mean Corpuscular Volume 83.9 fL (80.0-98.0); Mean Platelet Volume 11.6 fL (9.4-12.3); Monocytes Absolute Auto 0.7 X10*3/uL (0.1-1.2); Monocytes Percent Auto 10.8 % (2-11); Neutrophils Absolute Auto 4.2 x10*3/uL (2.0-8.3); Neutrophils Percent Auto 69.2 % (45-73); Platelet Count 252 X10*3/uL (160-400); Red Blood Count 3.78 X10*6/uL (4.20-5.50)
[2023-09-01 12:02] LABS: Alanine Aminotransferase 20 U/L (0-31); Albumin Level 4.3 g/dL (3.5-5.0); Alkaline Phosphatase 96 U/L (39-117); Anion Gap 12 (12-20); Aspartate Amino Transferase 22 U/L (5-31); Bilirubin Total 0.8 mg/dL (0.0-1.0); Blood Urea Nitrogen 41 mg/dL (9-16); Calcium 10.4 mg/dL (8.4-10.2); Carbon Dioxide 28 mmol/L (22-29); Chloride 104 mmol/L (96-108); Estimated Glomerular Filt Rate 46; Glucose Random 100 mg/dL (60-115); Potassium 4.2 mmol/L (3.3-5.1); Sodium 140 mmol/L (135-145); Total Protein 7.9 g/dL (6.5-8.0)
[2023-09-01 16:17] LABS: Appearance Urine Clear; Color Urine Yellow; Glucose Urine UA Negative (Negative); Leukocyte Esterase Urine Trace (Negative); Nitrite Urine Negative (Negative); PH 5.5 (5.0-9.0); Specific Gravity - Urine 1.015 (1.005-1.025); UMIC TRIGGER UACC YES; Urine Blood Negative (Negative); Urine Ketones Negative (Negative); Urine Protein Negative (Neg-Trace)
[2023-09-01 16:22] LABS: Bacteria Urine None Seen (None Seen); Hyaline Casts Urine 0-2 /LPF (0-2); RBC Urine 0-2 /HPF (0-2); Squamous Epithelial Cell Urine 0-2 /HPF (0-2); WBC Urine 0-5 /HPF (0-5)
== END 2023-09-01 10:00 | disposition home or self-care (01) ==
LOC: HO.HHCL 09:59
PROVIDERS: Visit Provider General Practice
DX: L95.9 Vasculitis limited to the skin, unspecified (principal); L65.0 Telogen effluvium
CPT/HCPCS: 36415; 80053; 81001; 85025

== ENCOUNTER 2024-04-19 14:24 | Outpatient (REF) | payer MEDICARE, MEDICAID, SELFPAY ==
--- NOTE | ~2024-04-19 | XR_ITS ---
EXAMINATION: XR KNEE, RIGHT CLINICAL INFORMATION: Right knee pain. Osteoarthritis. COMPARISON: X-rays of the right knee March 2022 and February 2022. TECHNIQUE: Four views of the right knee. FINDINGS: Medial compartment: Marginal osteophytes without joint space narrowing indicative of mild osteoarthritis. Lateral compartment: Marginal osteophytes and central osteophyte with mild joint space narrowing indicative of [id number] osteoarthritis. Patellofemoral compartment: Severe osteoarthritis manifested by marked narrowing of the lateral patellofemoral joint resulting in a [id number] appearance. This is likely progressed compared with the prior examination although on the prior exam no patella was obtained and therefore comparison is limited. There is no effusion. Surrounding bone and soft tissues: Unremarkable. XR/XR knee RT 4V IMPRESSION: Osteoarthritis of the right knee with severe degenerative change of the patellofemoral compartment likely progressed compared with the prior examination 2021. Comparison is limited as on the prior examination there is no patella view from which to compare. Electronically signed by: Yohannes Tavares MD 04/26/2024 07:28 AM EDT
[2024-04-19 16:14] LABS: MANUAL DIFF FLAG NO
[2024-04-19 16:23] LABS: Basophils Percent Auto 0.5 % (0-2); Eosinophils Percent Auto 0.5 % (0-4); Hematocrit 29.7 % (37.0-47.0); Hemoglobin 10.1 g/dl (12.0-16.0); Imm Gran Abs Auto 0.02 X10*3/uL (0.00-0.03); Imm Gran Pct Auto 0.5 % (0.0-0.4); Lymphocytes Absolute Auto 1.2 X10*3/uL (1.2-4.9); Lymphocytes Percent Auto 26.1 % (20-40); Mean Corpuscular Volume 82.3 fL (80.0-98.0); Mean Platelet Volume 11.3 fL (9.4-12.3); Monocytes Absolute Auto 0.5 X10*3/uL (0.1-1.2); Monocytes Percent Auto 11.1 % (2-11); Neutrophils Absolute Auto 2.7 x10*3/uL (2.0-8.3); Neutrophils Percent Auto 61.3 % (45-73); Platelet Count 229 X10*3/uL (160-400); Red Blood Count 3.61 X10*6/uL (4.20-5.50); Red Cell Distribution Width 11.9 % (11.0-16.0); White Blood Count 4.4 X10*3/uL (4.8-10.8)
[2024-04-19 16:45] LABS: Alanine Aminotransferase 20 U/L (0-31); Albumin Level 4.3 g/dL (3.5-5.0); Alkaline Phosphatase 100 U/L (39-117); Anion Gap 13 (12-20); Aspartate Amino Transferase 23 U/L (5-31); Bilirubin Total 0.5 mg/dL (0.0-1.0); Blood Urea Nitrogen 29 mg/dL (9-16); Carbon Dioxide 22 mmol/L (22-29); Chloride 108 mmol/L (96-108); Estimated Glomerular Filt Rate 53; Glucose Random 90 mg/dL (60-115); Potassium 3.8 mmol/L (3.3-5.1); Sodium 139 mmol/L (135-145)
[2024-04-20 07:27] LABS: ~HepC Num1 0.24 S/CO (0.00-0.79); ~Hepatitis C Antibody Nonreactive (Nonreactive)
== END 2024-04-19 14:25 | disposition home or self-care (01) ==
LOC: HO.HHCL 14:24
PROVIDERS: Visit Provider General Practice
DX: Z01.818 Encounter for other preprocedural examination (principal); R10.11 Right upper quadrant pain
CPT/HCPCS: 36415; 73564; 80053; 85025; 86803

== ENCOUNTER 2024-05-03 07:46 | Outpatient (REF) | payer MEDICARE, MEDICAID, SELFPAY ==
--- NOTE | ~2024-05-03 | US_ITS ---
EXAMINATION: US ABDOMEN COMPLETE CLINICAL INFORMATION: Right upper quadrant pain, status post cholecystectomy. COMPARISON: Ultrasound of the abdomen, complete 11/06/2017. CT abdomen and pelvis 11/06/2017. TECHNIQUE: Real-time imaging of the abdominal viscera. FINDINGS: PANCREAS: The visualized pancreas appears unremarkable but the pancreatic tail is obscured by bowel gas. ABDOMINAL AORTA: The proximal, mid, and distal segments are normal in caliber. INFERIOR VENA CAVA: Visualized portions are normal. LIVER: The liver is normal in size. The liver contour is normal. There is diffuse increased liver parenchymal echogenicity, consistent with hepatic steatosis. No focal hepatic lesion. There is no intrahepatic biliary duct dilatation seen. GALLBLADDER: Surgically absent. COMMON BILE DUCT: Normal in caliber measuring 0.3 cm in diameter. RIGHT KIDNEY: Normal. No hydronephrosis. No renal calculi or focal parenchymal lesions. The kidney measures 8.7 cm in maximum dimension. LEFT KIDNEY: Normal. No hydronephrosis. No renal calculi or focal parenchymal lesions. The kidney measures 8.7 cm in maximum dimension. SPLEEN: Normal. The spleen measures 8.7 cm in maximum dimension. FREE FLUID: None. US/US abdomen complete IMPRESSION: Hepatic steatosis. Electronically signed by: Marvin Ly MD 06/17/2024 12:33 AM EST
== END 2024-05-03 07:47 | disposition home or self-care (01) ==
LOC: HO.US 07:46
PROVIDERS: PCP General Practice; Visit Provider General Practice
DX: R10.11 Right upper quadrant pain (principal)
CPT/HCPCS: 76700

== ENCOUNTER 2024-06-03 14:28 | Outpatient (AMB) | payer MEDICARE, MEDICAID, SELFPAY ==
--- NOTE | 2024-06-03 15:04 | A.OFFVIS_ITS ---
Intake Visit Reasons: OV- Right knee swelling/ OA f/u Intake Note: Carolin is a 79 year old female who presents today for a follow up of her Right Knee OA. She was last seen in June of 2023 where TKA was discussed as injections were no longer helpful. Allergies No Known Allergies Allergy (Verified 06/30/22 13:20) HPI HPI OV- Right knee swelling/ OA f/u: Details: Carolin is a 79 year old female who presents today for a follow up of her Right Knee OA. She was last seen in June of 2023 where TKA was discussed as injections were no longer helpful. She had tentatively planned a knee replacement but canceled due to fear of surgery. She continues to have pain however. Injections while decreasing only helpful, she would like to try again. [facility] Medical History (Updated 08/16/23 @ 12:49 by Cassie Lester RN) Osteopenia Osteoarthritis Anemia Elevated cholesterol HTN (hypertension) Surgical History (Updated 08/16/23 @ 12:50 by aCssie Lester RN) History of cholecystectomy Family History Mother Cancer Family/Other Colon cancer Social History Patient Tobacco Use Status: Never used Tobacco Physical Exam Const General: no acute distress, alert and awake Orientation/consciousness: patient oriented x3 HEENT Head: Yes normocephalic and Yes atraumatic Eyes EOM: EOMs intact bilaterally Resp Effort & Inspection: normal respiratory effort and able to speak in complete sentences Cardio Jugular venous distension: no JVD Skin General skin exam: turgor normal Rashes: no rashes Neuro General: patient oriented x3 Extrem Other: Right Knee: Retropatellar TTP Medial and lateral TTP Psych Appearance: grossly normal Affect: normal affect Attitude: cooperative Office Procedures Joint Injection/Aspiration Joint Injection/Aspiration Details: Injected 1 mL of Decadron and 3 mL 1% lidocaine and 3 mL of 0.25% Marcaine. Site was prepped using aseptic technique. Patient tolerated the procedure well. Primary Site: right knee Approach Used: lateral parapatellar Coding 02543 - Large joint Procedure code (CPT) selection complete Assessment & Plan Assessment & Plan (1) Osteoarthritis of right knee: Code(s): M17.11 - Unilateral primary osteoarthritis, right knee Category: Medical Plan: This is a 79-year-old woman who has a history of right knee osteoarthritis. She was scheduled for arthroplasty but canceled last year. She is interested in repeat injections and I think this is reasonable. I injected her right knee today. She can see me for repeat injections in no sooner than 3 months. Coding Level of Care Code Est Pt Level 3 (65320) Diagnoses Osteoarthritis of right knee M17.11 CPT Codes Coding - 96092 Large joint: 40075 - Large joint ([id number])
== END 2024-06-03 16:07 | disposition home or self-care (01) ==
PROVIDERS: PCP General Practice; Visit Provider Orthopaedic Surgery
DX: M17.11 Unilateral primary osteoarthritis, right knee (principal)
CPT/HCPCS: 20610; 99213

== ENCOUNTER → 2024-06-03 14:28 | Outpatient (BNVA) | payer MEDICARE, MEDICAID, SELFPAY | PROVIDERS: PCP General Practice; Visit Provider Orthopaedic Surgery | DX: M17.11 Unilateral primary osteoarthritis, right knee (principal) | CPT/HCPCS: 20610; 99212; J0665; J1100; J2003 ==

== ENCOUNTER 2025-01-16 14:23 | Outpatient (REF) | payer MEDICARE, MEDICAID, SELFPAY ==
--- NOTE | ~2025-01-16 | XR_ITS ---
EXAMINATION: XR KNEE, LEFT CLINICAL INFORMATION: left knee pain COMPARISON: AP standing knee from March 28, 2022 TECHNIQUE: AP lateral and AP axial views of the left knee. FINDINGS: There is minimal narrowing of the medial joint space. There are tricompartmental marginal osteophytes. Osteophytes are largest along the medial joint line, and trochlea. On the lateral view, there is somewhat globular calcific density projecting over the posterior joint line. On the frontal view, it is seen in the lateral compartment, near the intercondylar notch. There is a joint effusion. XR/XR knee LT 3V IMPRESSION: Mild 3 compartment osteoarthritis of the knee with a joint effusion. Calcific density projecting in the posterior lateral joint could represent chondrocalcinosis versus an intra-articular body. Electronically signed by: John Koch MD 01/16/2025 03:01 PM EDT
[2025-01-16 16:09] LABS: MANUAL DIFF FLAG NO
[2025-01-16 16:16] LABS: Basophils Percent Auto 0.6 % (0-2); Eosinophils Percent Auto 0.4 % (0-4); Hematocrit 29.3 % (37.0-47.0); Hemoglobin 10.2 g/dl (12.0-16.0); Imm Gran Abs Auto 0.02 X10*3/uL (0.00-0.03); Imm Gran Pct Auto 0.4 % (0.0-0.4); Lymphocytes Absolute Auto 1.2 X10*3/uL (1.2-4.9); Lymphocytes Percent Auto 23.3 % (20-40); Mean Corpuscular HGB Conc 34.8 g/dl (31.0-35.0); Mean Corpuscular Hemoglobin 28.2 pg (27.0-33.0); Mean Corpuscular Volume 80.9 fL (80.0-98.0); Mean Platelet Volume 11.2 fL (9.4-12.3); Monocytes Absolute Auto 0.6 X10*3/uL (0.1-1.2); Monocytes Percent Auto 11.3 % (2-11); Neutrophils Absolute Auto 3.2 x10*3/uL (2.0-8.3); Platelet Count 253 X10*3/uL (160-400); Red Blood Count 3.62 X10*6/uL (4.20-5.50); Red Cell Distribution Width 11.9 % (11.0-16.0); White Blood Count 5.1 X10*3/uL (4.8-10.8)
[2025-01-16 16:54] LABS: Erythrocyte Sedimentation Rate 38 MM/HR (0-20)
--- OUTSIDE RECORDS SUMMARY | 2025-01-16 17:03 | XMS_ITS | Encounter Summary ---
Author Organization [employer] Address [address] [place] [address] Care Team Providers Care Ultrasound Technician Name Role Phone Sara North MD Primary Care Provider [phone] Jigna Holt OD Unavailable [phone] Reason for Visit * Reason Onset Date Comments Med Refill 10/10/2023 Encounter Details Date Type Department Care Team ([facility] st Contact Info) Description 10/10/2023 Telephone [facility] [address], [place] [phone] Sara North MD [address], [place] [phone] Med Refill Social History Tobacco Use Types Packs/Day Years Used Date Smoking Tobacco: Never Smokeless Tobacco: Never Alcohol Use Standard Drinks/Week Comments Never 0 (1 standard drink = 0.6 oz pur e alcohol) PHQ-2 Answer Date Recorded Patient Health Questionnaire-2 Score 0 01/02/2023 Housing Stability Answer Date Recorded What is your housing situation today? I have valerie evans 06/24/[address] you li ve. Do you have problems with any of the following? None of the above 06/24/2023 Food Insecurity Answer Date Recorded Within the past 12 months, y ou worried that your food would run out before you got money to buy more: Never True 06/24/2023 Within the past 12 months,th e food you bought just didn't last and you didn't have enough money to get more: Never True 06/2023 Transportation Answer Date Recorded In the past 12 months, has l ack of transportation kept you from medical appts, meetings, work or from getting things needed for daily living? Yes, it has kept me from medical appointments or getting medications. 05/22/2023 Utilities Answer Date Recorded In the past 12 months, has t he electric, gas, oil or water company threatened to shut off services in your home? No 06/24/2023 Depression Answer Date Recorded Patient Health Questionnaire-2 Score 0 01/02/2023 Comments Unknown Sex and Gender Information Value Date Recorded Sex Assigned at Female 06/13/2022 10:30 AM EDT Legal Sex Female 10:30 AM EDT Gender Identity Female 06/13/2022 10:30 AM EDT Sexual Orientation Straight 06/13/2022 10 :30 AM EDT documented as of this encounter Miscellaneous Notes * Telephone Encounter - Leela Mtz LPN - 10/10/2023 10:37 AM EST Medication pended to PCP. * Telephone Encounter - Natalie Goddard - 10/10/2023 10:32 AM EST TC from pt requesting medication refill. Medications needing refill : metoprolol tartrate (Lopressor) 25 MG tablet To be sent to: [id number] documented in this encounter Plan of Treatment Upcoming Encounters Date Type Department Care Team (Late st Contact Info) Description 02/20/2025 3:15 PM EDT Office Visit [facility] [address] [place] [address] Haylee Rucker, OD [address] [place] [address] documented as of this encounter Visit Diagnoses Not on filedocumented in this encounter Care Teams Ultrasound Technician Relationship Specialty Start Date End Date Sara North MD [address] [place] [address] PCP - General Family Medicine 2/13/23 Jigna Holt OD [address] [place] [id number] Optometry 10/24/24 [facility] 10/28/24 documented as of this encounter
[2025-01-16 17:10] LABS: Vitamin D 25-OH Total 57.3 ng/mL (>30)
[2025-01-16 17:57] LABS: Alanine Aminotransferase 29 U/L (0-31); Albumin Level 4.3 g/dL (3.5-5.0); Alkaline Phosphatase 88 U/L (39-117); Anion Gap 12 (12-20); Aspartate Amino Transferase 23 U/L (5-31); Bilirubin Total 0.4 mg/dL (0.0-1.0); Blood Urea Nitrogen 32 mg/dL (9-16); Calcium 10.2 mg/dL (8.4-10.2); Carbon Dioxide 26 mmol/L (22-29); Chloride 106 mmol/L (96-108); Estimated Glomerular Filt Rate 53; Glucose Random 88 mg/dL (60-115); Potassium 4.2 mmol/L (3.3-5.1); Sodium 140 mmol/L (135-145); Total Protein 7.7 g/dL (6.5-8.0)
[2025-01-17 05:26] LABS: HBc Num1 0.11 S/CO (0.00-0.79); HIV AB/AG Nonreactive (Nonreactive); HIV Num 1 0.06 S/CO (0.00-0.99); Hepatitis B Core Antibody Nonreactive (Nonreactive)
== END 2025-01-16 14:24 | disposition home or self-care (01) ==
LOC: HO.HHCX 14:23
PROVIDERS: Family Medicine; Visit Provider General Practice
DX: M25.562 Pain in left knee (principal); G89.29 Other chronic pain; Z91.81 History of falling; Z11.4 Encounter for screening for human immunodeficiency virus [HIV]
CPT/HCPCS: 36415; 73562; 80053; 82306; 85025; 85652; 86704; 87389

== ENCOUNTER → 2025-01-16 14:25 | Outpatient (BNV) | payer MEDICARE, MEDICAID, SELFPAY | PROVIDERS: Visit Provider Radiology Diagnostic Radiology | DX: M25.462 Effusion, left knee (principal) | CPT/HCPCS: 73562 ==

== ENCOUNTER 2025-01-16 14:54 | Outpatient (REF) | payer MEDICARE, MEDICAID, SELFPAY | END 2025-01-16 14:55 | disposition home or self-care (01) | LOC: HO.HHCL 14:54 | PROVIDERS: Visit Provider General Practice | DX: Z13.89 Encounter for screening for other disorder (principal) ==

== ENCOUNTER 2025-03-08 18:15 | Emergency (ER) | payer MEDICARE, MEDICAID, SELFPAY ==
--- NOTE | ~2025-03-08 | XR_ITS ---
CLINICAL HISTORY: atraumatic R shoulder pain 4 view right shoulder Comparison: None provided Findings: No fractures or dislocations. No significant loss of joint space or osteophytes. No erosions. No radiopaque foreign body. IMPRESSION: 1. No acute findings. This document has been electronically signed by: Amado De La O MD on 03/08/2025 19:52:34
[2025-03-08 18:23] VITALS: BP 138/54; PULSE 77; RESP 18; TEMP 36.4; O2SAT 99; BMI 25.2
--- NOTE | 2025-03-08 18:25 | ED.GENADULT ---
HPI - General Adult General Chief complaint: Extremity Injury, Upper Stated complaint: right shoulder cuff pain cant lift arm Time Seen by Provider: 03/08/25 20:00 Source: patient Mode of arrival: ambulatory Limitations: no limitations History of Present Illness ED Provider: Dr. Monae Holly HPI narrative: Patient comes to the emergency room complaining of right shoulder pain for about a week. Patient states that she feels a grinding or rubbing sensation when she moves her arm in a certain way. Especially abducting the arm above 90 degrees. Patient denies any falls or any injuries. Patient states that 1 day she woke up with that sensation and has tried multiple medications including topical Voltaren, lidocaine patches without any significant relief. Patient denies numbness or tingling of the extremity Related Data Home Medications ?Medication ?Instructions ?Recorded ?Confirmed calcium acetate 667 mg tablet 1,334 mg PO TID 12/01/21 08/23/22 acetaminophen 650 mg 650 mg PO Q8H 12/29/21 08/23/22 tablet,extended release (Tylenol Arthritis Pain) aspirin 81 mg tablet,delayed 81 mg PO DAILY 12/29/21 08/23/22 release calcium carbonate (Oyster Shell 500 mg PO BID 12/29/21 08/23/22 Calcium 500) ferrous gluconate 324 mg (38 mg 324 mg PO DAILY 12/29/21 08/23/22 iron) tablet metoprolol tartrate 25 mg tablet 25 mg PO DAILY 12/29/21 08/23/22 cholecalciferol (vitamin D3) 50 50 mcg PO DAILY 01/04/22 08/23/22 mcg (2,000 unit) tablet terbinafine HCl 1 % topical cream appl topical BID 01/04/22 08/23/22 triamcinolone acetonide 0.1 % topical BID 01/04/22 08/23/22 topical ointment rosuvastatin 20 mg tablet 20 mg PO DAILY 06/30/22 08/23/22 magnesium gluconate 27 mg 27 mg PO QPM cramps 08/23/22 08/23/22 magnesium (500 mg) tablet (Mag-G) Previous Rx's ?Medication ?Instructions ?Recorded bisacodyl 5 mg tablet,delayed 10 mg (2 x 5 mg) PO ONCE 1 day #2 01/04/22 release (Dulcolax (bisacodyl)) tabs polyethylene glycol 3350 17 238 g PO ONCE #238 grams 01/04/22 gram/dose oral powder (Miralax) acetaminophen 500 mg tablet 1,000 mg (2 x 500 mg) PO QID PRN 02/19/22 pain #30 tabs naproxen 500 mg tablet (Naprosyn) 500 mg PO BID PRN pain #14 tabs 02/19/22 losartan 50 mg tablet 50 mg PO BID #60 tabs 04/04/22 cyclobenzaprine 5 mg tablet 5 mg PO TID PRN muscle spasm #10 03/08/25 tabs ketorolac 10 mg tablet 10 mg PO .B.i.d. PRN pain #8 tabs 03/08/25 Allergies Allergy/AdvReac Type Severity Reaction Status Date / Time No Known Allergies Allergy Verified 03/08/25 18:24 Review of Systems Review of Systems: Constitutional : No Weight loss, No Fever, No Chills, No Night Sweats, No Fatigue, No Malaise ENT/Mouth : No Hearing loss, No Ear Pain, No Nasal Congestion, No Sinus Pain, No Hoarseness, No sore throat, No Rhinorrhea, No Swallowing Difficulty Eyes: No Eye Pain, No Swelling, No Redness, No Foreign Body, No Discharge, No Vision Changes Cardiovascular : No Chest Pain, No SOB, No Dyspnea on Exertion, No Orthopnea, No Edema, No Palpitations Respiratory : No Cough, No Sputum, No Wheezing, No Smoke Exposure, No Dyspnea Gastrointestinal : No Nausea, No Vomiting, No Diarrhea, No Constipation, No abdominal Pain, No Hematochezia, No Melena Genitourinary : no irregular bleeding, No Dysuria, No Urinary Frequency, No Hematuria, No Urinary Incontinence, No Urgency, No Flank Pain, No Urinary Flow Changes, No Hesitancy Musculoskeletal : Complaining of right shoulder pain, complaining of a grinding or rubbing sensation with certain movements, No Myalgias, No Joint Swelling Skin : No Skin Lesions, No rash Neuro : No Weakness, No Numbness, No Paresthesias, No Loss of Consciousness, No Dizziness, No Headache Psych : No Anxiety/Panic, No Depression, No SI/HI/AH/VH, No Social Issues, Heme/Lymph: No Bruising, No Bleeding,No Lymphadenopathy Endocrine : No Polyuria, No Polydipsia, No Temperature Intolerance PMFSH Past Medical History Medical History Osteopenia Osteoarthritis Anemia Elevated cholesterol HTN (hypertension) Surgical History (Updated 08/16/23 @ 12:50 by Cassie Lester RN) History of cholecystectomy Family History Family History Mother Cancer Family/Other Colon cancer Social History Social History Patient Tobacco Use Status: Never used Tobacco Advance Directives: No Advance Directives Information Provided: No Physical Exam ED Exam Exam: Appearance: Alert. Oriented X3. No acute distress. Well-appearing Eyes: Pupils equal, round and reactive to light. ENT: Pharynx normal. Neck: Normal inspection. Neck supple. No lymph nodes noted. No crepitus CVS: Normal heart rate and rhythm. Pulses normal. Normal S1 and S2 Respiratory: No respiratory distress. Breath sounds normal. No Wheezing. No rales Abdomen: Soft and nontender. No rigidity. No distention. Skin: Skin warm and dry. Normal skin color. Normal skin turgor. Extremities: No lower extremity edema. No Lacerations. No Rash. The right shoulder looks within normal limits, no erythema, no swelling, no ecchymosis. Patient able to abduct the arm just beyond 90 degrees but hurts doing so. Patient has normal strength. Neuro: Oriented X 3. No motor deficit. No sensory deficit. Moving all extremities. No slurred speech. CN 2 through 12 grossly intact Psych: calm, cooperative, normal affect Vital Signs: Vital Signs - 24 hr 03/08/25 18:23 Temperature 97.6 F Pulse Rate 77 Respiratory Rate 18 Blood Pressure 138/54 L Pulse Oximetry 99 Oxygen Delivery Method Room Air BMI result Body Mass Index 25.2 Course Course Course Narrative: 03/08/25 1825 PAT Rose This is a Rapid Medical Examination (RME) performed by Elizabeth Vazquez PA-C in triage. Full HPI, ROS, assessment and treatment plan per primary provider in the Main ED. Hx: 79 yo F hx of HLD, HTN, anemia, RA here w/ atraumatic R shoulder pain x1 week. pain begins in R shoulder and radiates to back and into her R chest. unable to lift her RUE d/t pain. pain is worse at night. denies injury/trauma/falls/heavy lifting. Plan: screening labs, xr, ekg Medical Decision Making Medical Decision Making [facility] Narrative: My interpretation of EKG: Normal sinus rhythm, heart rate 65, incomplete right bundle branch block, no ST segment depression or elevation, nonspecific T-wave inversion in lead 3, QTC 430 My interpretation of labs: No significant abnormality in patient's hematology or chemistry, normal troponin X-ray shows no acute findings Given the patient's description of symptoms, patient likely has a rotator cuff injury, versus labrum tear, versus calcific ligament Patient was given a dose of IM ketorolac and cyclobenzaprine. Discussed with the patient that this medication may make her feel drowsy and she should only take it once she knows that she will not be going outside of her home and can not stay in bed to prevent falls Patient was provided with a sling Patient instructed to follow-up with her PCP Differential Diagnosis Differential Diagnoses: The differential diagnosis associated with the presentation includes (As above) Lab Data MDM Lab Attestation statement: I reviewed the patient's lab results. 03/08/25 18:43 03/08/25 18:43 Labs: Lab Results 03/08/25 Range/Units 18:43 WBC 5.6 (4.8-10.8) X10*3/uL RBC 3.64 L (4.20-5.50) X10*6/uL Hgb 10.4 L (12.0-16.0) g/dl Hct 29.2 L (37.0-47.0) % MCV 80.2 (80.0-98.0) fL MCH 28.6 (27.0-33.0) pg MCHC 35.6 H (31.0-35.0) g/dl RDW 12.0 (11.0-16.0) % Plt Count 244 (160-400) X10*3/uL MPV 10.5 (9.4-12.3) fL Immature Gran % (Auto) 0.2 (0.0-0.4) % Neut % (Auto) 68.5 (45-73) % Lymph % (Auto) 20.6 (20-40) % [place] % (Auto) 9.8 (2-11) % Eos % (Auto) 0.4 (0-4) % Baso % (Auto) 0.5 (0-2) % Lymph # (Auto) 1.2 (1.2-4.9) X10*3/uL [place] # (Auto) 0.6 (0.1-1.2) X10*3/uL Eos # (Auto) 0.0 (0.0-0.4) X10*3/uL Baso # (Auto) 0.0 (0.0-0.2) X10*3/uL Abs Immat Gran (auto) 0.01 (0.00-0.03) X10*3/uL Absolute Neuts (auto) 3.9 (2.0-8.3) x10*3/uL Absolute Nucleated RBC 0.000 (0.0-0.012) X10*3/uL Nucleated RBC % (auto) 0.0 (0.0-0.2) /100WBC Sodium 139 (135-145) mmol/L Potassium 4.1 (3.3-5.1) mmol/L Chloride 106 (96-108) mmol/L Carbon Dioxide 23 (22-29) mmol/L Anion Gap 14 (12-20) BUN 27 H (9-16) mg/dL Creatinine 1.08 (0.5-1.4) mg/dL Estim Creat Clear Calc 38.2 Estimated GFR 49 Random Glucose 103 (60-115) mg/dL Calcium 9.7 (8.4-10.2) mg/dL Troponin I High Sens < 2.7 (<3.5-17.0) ng/L Independent Interpretation I performed an independent interpretation of an: EKG and Plain X-Ray Radiology Impression Discussion of test interpretation with radiology: I have reviewed the radiologist's reading. Radiologist Impression: No fractures or dislocations. No significant loss of joint space or osteophytes. No erosions. No radiopaque foreign body. Discharge Plan Discharge Clinical Impression: Right shoulder pain Patient Disposition: Home, Self-Care Additional Instructions: Please follow-up with your primary care physician tomorrow. If you have any worsening or new symptoms, please return to the emergency room or call 911 Prescriptions: New ketorolac 10 mg tablet 10 mg PO .B.i.d. PRN (Reason: pain) Qty: 8 0RF cyclobenzaprine 5 mg tablet 5 mg PO TID PRN (Reason: muscle spasm) Qty: 10 0RF Rx Instructions: This medication may cause drowsiness/dizziness. No Action losartan 50 mg tablet 50 mg PO BID Qty: 60 2RF naproxen [Naprosyn] 500 mg tablet 500 mg PO BID PRN (Reason: pain) Qty: 14 0RF acetaminophen 500 mg tablet 1,000 mg PO QID PRN (Reason: pain) Qty: 30 0RF calcium acetate 667 mg tablet 1,334 mg PO TID cholecalciferol (vitamin D3) 50 mcg (2,000 unit) tablet 50 mcg PO DAILY triamcinolone acetonide 0.1 % ointment topical BID terbinafine HCl 1 % cream topical BID bisacodyl [Dulcolax (bisacodyl)] 5 mg tablet,delayed release (DR/EC) 10 mg PO ONCE 1 Days Qty: 2 0RF Rx Instructions: take 2 tabs at noon the day before your colonoscopy polyethylene glycol 3350 [Miralax] 17 gram/dose powder 238 g PO ONCE Qty: 238 0RF Rx Instructions: As directed by gastroenterology department at [facility] calcium carbonate [Oyster Shell Calcium 500] 500 mg calcium (1,250 mg) tablet 500 mg PO BID aspirin 81 mg tablet,delayed release (DR/EC) 81 mg PO DAILY metoprolol tartrate 25 mg tablet 25 mg PO DAILY ferrous gluconate 324 mg (38 mg iron) tablet 324 mg PO DAILY acetaminophen [Tylenol Arthritis Pain] 650 mg tablet extended release 650 mg PO Q8H magnesium gluconate [Mag-G] 27 mg magnesium (500 mg) tablet 27 mg PO QPM rosuvastatin 20 mg tablet 20 mg PO DAILY Print Language: Ivorian
--- NOTE | 2025-03-08 18:27 | ECG_ITS ---
Test Reason : shoulder pain Blood Pressure : */* mmHG Vent. Rate : 65 BPM Atrial Rate : 65 BPM P-R Int : 170 ms QRS Dur : 114 ms QT Int : 414 ms P-R-T Axes : 27 -20 10 degrees QTcB Int : 430 ms Normal sinus rhythm Incomplete right bundle branch block Moderate voltage criteria for LVH, may be normal variant ( R in aVL , Julio product ) Borderline ECG When compared with ECG of 19-Jun-2012 06:49, LVH present Referred By: Shannon Vazquez Electronically Signed By: Ba Dozier
[2025-03-08 18:48] LABS: MANUAL DIFF FLAG NO
[2025-03-08 18:55] LABS: Hematocrit 29.2 % (37.0-47.0); Hemoglobin 10.4 g/dl (12.0-16.0); Imm Gran Abs Auto 0.01 X10*3/uL (0.00-0.03); Imm Gran Pct Auto 0.2 % (0.0-0.4); Lymphocytes Absolute Auto 1.2 X10*3/uL (1.2-4.9); Mean Corpuscular HGB Conc 35.6 g/dl (31.0-35.0); Mean Corpuscular Hemoglobin 28.6 pg (27.0-33.0); Mean Corpuscular Volume 80.2 fL (80.0-98.0); NRBC Abs Auto 0.000 X10*3/uL (0.0-0.012); NRBC Pct Auto 0.0 /100WBC (0.0-0.2); Platelet Count 244 X10*3/uL (160-400); Red Blood Count 3.64 X10*6/uL (4.20-5.50); White Blood Count 5.6 X10*3/uL (4.8-10.8)
[2025-03-08 19:01] LABS: Anion Gap 14 (12-20); Blood Urea Nitrogen 27 mg/dL (9-16); Calcium 9.7 mg/dL (8.4-10.2); Carbon Dioxide 23 mmol/L (22-29); Chloride 106 mmol/L (96-108); Creatinine Clr Calc Pharmacy 38.2; Estimated Glomerular Filt Rate 49; Potassium 4.1 mmol/L (3.3-5.1); Sodium 139 mmol/L (135-145)
[2025-03-08 19:13] LABS: Troponin-I High Sensitivity < 2.7 ng/L (<3.5-17.0)
[2025-03-08 20:56] VITALS: BP 130/72; PULSE 73; RESP 16; TEMP 36.9; O2SAT 98
== END 2025-03-08 20:56 | disposition home or self-care (01) ==
PROVIDERS: Physician Assistant Medical; Emergency Provider Emergency Medicine; PCP General Practice
DX: M25.511 Pain in right shoulder (principal); I45.19 Other right bundle-branch block; Z79.899 Other long term (current) drug therapy
CPT/HCPCS: 36415; 73030; 80048; 84484; 85025; 93005; 96372; 99284; J1885

== ENCOUNTER → 2025-03-08 18:27 | Outpatient (BNV) | payer MEDICARE, MEDICAID, SELFPAY | PROVIDERS: Emergency Provider Emergency Medicine; PCP General Practice; Visit Provider Radiology Diagnostic Radiology | DX: M25.511 Pain in right shoulder (principal) | CPT/HCPCS: 73030 ==

== ENCOUNTER → 2025-03-08 18:27 | Outpatient (BNV) | payer MEDICARE, MEDICAID, SELFPAY | PROVIDERS: Emergency Provider Emergency Medicine; PCP General Practice; Visit Provider Internal Medicine Cardiovascular Disease | DX: I45.10 Unspecified right bundle-branch block (principal) | CPT/HCPCS: 93010 ==

== ENCOUNTER 2025-03-17 12:49 | Outpatient (REF) | payer MEDICARE, MEDICAID, SELFPAY ==
--- OUTSIDE RECORDS SUMMARY | 2025-03-17 13:09 | XMS_ITS | Encounter Summary ---
Author Organization [employer] Address [address] [place] [address] Care Team Providers Care Security System Engineer Name Role Phone Sara North MD Primary Care Provider [phone] Jigna Holt OD Unavailable [phone] Reason for Visit * Reason Onset Date Comments Med Refill 10/10/2023 Encounter Details Date Type Department Care Team ([facility] st Contact Info) Description 10/10/2023 Telephone [facility] MEDICINE [address] [place], [place] [phone] Sara North MD [address] [place], [place] [phone] Med Refill Social History Tobacco Use Types [...] 25 MG tablet To be sent to: [id number] [place], [place] - [address] [facility] documented in this encounter Plan of Treatment Not on file documented as of this encounter Visit Diagnoses Not on filedocumented in this encounter Care Teams Security System Engineer Relationship Specialty Start Date End Date Sara North MD [address] [place], [place] [phone] PCP - General Family Medicine 09/26/22 Jigna Holt OD [address] [place], [place] [phone] Optometry 10/24/24 [facility] [place] [place] Orthopedics 10/28/24 documented as of this encounter
== END 2025-03-17 12:50 | disposition home or self-care (01) ==
LOC: HO.SH 12:49
PROVIDERS: Visit Provider Family Medicine
DX: Z01.118 Encounter for examination of ears and hearing with other abnormal findings (principal); H90.3 Sensorineural hearing loss, bilateral
CPT/HCPCS: 92557; 92567

== ENCOUNTER 2025-04-07 14:51 | Outpatient (AMB) | payer MEDICARE, MEDICAID, SELFPAY ==
--- NOTE | 2025-04-07 14:53 | A.OFFVIS_ITS ---
Intake Visit Reasons: OV - Bilateral Knee OA Intake Note: Carolin is a 79 year old female who presents today for a follow up of her Bilateral Knee OA. She was last seen on 06/03/24 where we provided her with a Right knee injection and had discussion of surgery. Patient was previously scheduled for Right TKA but is hesitant to move forward with surgery. She reports that this last injection in the right knee was helpful, the right knee is not currently bothering her. At this time her left knee is more painful and she would like to discuss injecting the left knee. Allergies No Known Allergies Allergy (Verified 04/07/25 14:56) HPI HPI OV - Bilateral Knee OA: Details: Carolin is a 79 year old female who presents today for a follow up of her Bilateral Knee OA. She was last seen on 06/03/24 where we provided her with a Right knee injection and had discussion of surgery. She was previously scheduled for Right TKA but is hesitant to move forward with surgery. She reports that this last injection in the right knee was helpful, the right knee is not currently bothering her. At this time her left knee is more painful and she would like to discuss injecting the left knee. [facility] Medical History Osteopenia Osteoarthritis Anemia Elevated cholesterol HTN (hypertension) Surgical History (Updated 08/16/23 @ 12:50 by Cassie Lester RN) History of cholecystectomy Family History Mother Cancer Family/Other Colon cancer Social History Patient Tobacco Use Status: Never used Tobacco Physical Exam Extrem Other: Mild effusion and left knee with tenderness to palpation mostly along the medial compartment. Positive gait antalgia. 5-120 degrees of motion bilateral knees. Office Procedures Joint Inj/Aspir; Non-Pain Clin Joint Injection/Drain Details: Injected 1 mL of Decadron and 3 mL 1% lidocaine and 3 mL of 0.25% Marcaine. Site was prepped using aseptic technique. Patient tolerated the procedure well. Shoulders, Hips, Knees, Knee Large Joint Injection : Left Knee Coding Procedure code (CPT) selection complete Assessment & Plan Assessment & Plan (1) Osteoarthritis of left knee: Code(s): M17.12 - Unilateral primary osteoarthritis, left knee Category: Medical Plan: This is a an 80-year-old woman with bilateral knee arthritis. We had been injecting the right knee but that is doing well and her left knee is causing her pain mostly over the medial compartment. I injected her left knee today. She may follow up as needed. Coding Level of Care Code Est Pt Level 3 (06125) Diagnoses Osteoarthritis of left knee M17.12 CPT Codes Shoulders, Hips, Knees, - Knee Large Joint Injection : Left Knee ([id number])
--- OUTSIDE RECORDS SUMMARY | 2025-04-07 16:32 | XMS_ITS | Encounter Summary ---
Author Organization [employer] Address [address] [place] [address] Care Team Providers Care Inseamer Name Role Phone Sara North MD Primary Care Provider [phone] Jigna Holt OD Unavailable [phone] Reason for Visit * Reason Onset Date Comments Med Refill 10/10/2023 Encounter Details Date Type Department Care Team ([facility] st Contact Info) Description 10/10/2023 Telephone [facility] MEDICINE [address] [place], [place] [phone] Sara North MD [address] [place], [place] [phone] Med Refill Social History Tobacco Use Types [...] 25 MG tablet To be sent to: [id number] [place], [place] - [address] [facility] documented in this encounter Plan of Treatment Not on file documented as of this encounter Visit Diagnoses Not on filedocumented in this encounter Care Teams Inseamer Relationship Specialty Start Date End Date Sara North MD [address] [place], [place] [phone] PCP - General Family Medicine 09/26/22 Jigna Holt OD [address] [place], [place] [phone] Optometry 10/24/24 [facility] [place] 10/28/24 documented as of this encounter
--- OUTSIDE RECORDS SUMMARY | 2025-04-07 16:32 | XMS_ITS | Encounter Summary ---
Author Organization [employer] Address [address] [place] [address] Care Team Providers Care Program Architect Name Role Phone Sara North MD Primary Care Provider Jigna Holt OD Unavailable [phone] Encounter Details Date Type Department Care Team ([facility] st Contact Info) Description 04/24/2024 Orders Only [facility] MEDICINE [address] [place], [place] [phone] Sara North MD [address] [place], [place] [phone] Social History Tobacco Use Types Packs/Day Years [...] from getting things needed for daily living? No 12/11/2023 Utilities Answer Date Recorded In the past [...] AM EDT documented as of this encounter Plan of Treatment Not on file documented as of this encounter Visit Diagnoses Not on filedocumented in this encounter Care Teams Program Architect Relationship Specialty Start Date End Date Sara North MD [address] [place] [address] PCP - General Family Medicine 09/26/22 Jigna Holt OD [address] [place] [address] Optometry 10/24/24 [facility] [place] Orthopedics 10/28/24 documented as of this encounter
--- OUTSIDE RECORDS SUMMARY | 2025-04-07 16:32 | XMS_ITS | Encounter Summary ---
Author Organization [employer] Address [address] [place] [address] Care Team Providers Care Geothermal Powerplant Supervisor Name Role Phone Sara North MD Primary Care Provider [phone] Jonathon, Megan OD Unavailable [phone] Reason for Referral * Imaging (Routine) - Closed Specialty Diagnoses / Procedures Referred By Contac t Referred To Contact Radiology Diagnoses Right upper quadrant abdominal pain Procedures CT Abdomen Pelvis w/ Contrast Sara North MD [address] [place] [address] Phone: tel: fax: [address] Phone: tel: fax: Referral ID Status Reason Start Date Expiration Date Visits Re quested Visits Authorized [id number] Closed 10/30/2024 10/30/2025 1 1 Encounter Details Date Type Department Care Team (Late st Contact Info) Description 10/30/2024 Orders Only [facility] MEDICINE [address] [place], [place] [phone] Sara North MD [address] [place], [place] [phone] Right upper quadrant abdominal pain (Primary Dx) Social History Tobacco Use Types Packs/Day Years Used Date Smoking Tobacco: Never Passive Smoke Exposure: Never Smokeless Tobacco: Never Alcohol Use Standard [...] Date Recorded Patient Health Questionnaire-2 Score 0 10/28/2024 Internet Access Answer Date Recorded Internet Access Q1 Yes 10/28/2024 Internet Access Q2 Not on file 10/28/2024 Comments Unknown Sex and Gender Information Value Date Recorded Sex Assigned at Female 06/13/2022 10:30 AM EDT Legal Sex Female 10:30 AM EDT Gender Identity Female 06/13/2022 10:30 AM EDT Sexual Orientation Straight 06/13/2022 10 :30 AM EDT documented as of this encounter Plan of Treatment Scheduled Orders Name Type Priority Associated Diagnoses Orde r Schedule CT Abdomen Pelvis w/ Contrast Imaging Routine Right upper quadrant abdominal pain Expected: 10/30/2024, Expires: 10/30/2025 documented as of this encounter Visit Diagnoses Diagnosis Right upper quadrant abdominal pain- Primary documented in this encounter Care Teams Geothermal Powerplant Supervisor Relationship Specialty Start Date End Date Sara North MD [address] [place] [address] PCP - General Family Medicine 09/26/22 Jigna Holt OD [address] [place] [address] Optometry 10/24/24 [facility] [place] [facility] [place] 10/28/24 documented as of this encounter
--- OUTSIDE RECORDS SUMMARY | 2025-04-07 16:32 | XMS_ITS | Clinical Summary ---
Author Organization [employer] Address [address] [place] [address] Care Team Providers Care Knuckler Name Role Phone Sara North MD Primary Care Provider [phone] Jigna Holt OD Unavailable [phone] Allergies No known active allergies Medications * This document contains information received from the source organization and may not represent a complete record from that organization. fluticasone (Flonase) 50 MCG/ACT nasal sprayIndications:R etracted tympanic membrane, bilateral SPRAY 1-2 PUFFS INTO EACH NOSTRIL EVERY MORNING. SHAKE GENTLY BEFORE USE AND CLEAN AFTERWARDS 16 g 6 4 Active ferrous sulfate 324 (65 Fe) MG EC tablet Take 1 tablet (324 mg) by mouth with breakfast. Do not crush, chew, or split. 90 tablet 3 4 Active naproxen (Naprosyn) 500 MG tabletIndications: Chronic pain of both knees,Acute right-sided low back pain with right-sided sciatica TAKE 1 TABLET BY MOUTH TWICE DAILY WITH FOOD FOR UP TO 1 WEEK THEN NEEDED 60 tablet 5 Active cholecalciferol (Vitamin D-3) 50 MCG (2000 UT) tablet Take 1 tablet (50 mcg) by mouth Once per day. 90 tablet 3 5 Active aspirin (Aspirin Low Dose) 81 MG EC tabletIndications: Hyperlipidemia, unspecified hyperlipidemia type Take 1 tablet (81 mg) by mouth Once per day. 90 tablet 3 5 Active Acetaminophen Extra Strength 500 MG tablet Take 1 tablet (500 mg) by mouth if needed in the morning, at noon, in the evening, and at bedtime (pain). 60 tablet 3 5 Active Emollient ([employer] Moisturizing) cream Apply 1 Application. topically if needed (dry skin). 340 g 3 5 Active Diclofenac Sodium 1 % gel APPLY 2 GRAMS TOPICALLY FOUR TIMES DAILY TO AFFECTED AREAS 100 g 3 5 Active loratadine (Claritin) 10 MG tabletIndications: Seasonal allergies Take 1 tablet (10 mg) by mouth if needed each day for allergies. 90 tablet 3 5 026 Active losartan-hydroCHLO ROthiazide (Hyzaar) 100-12.5 MG tabletIndications: Essential hypertension Take 1 tablet by mouth Once per day. 90 tablet 3 5 Active magnesium, as gluconate, (Mag-G) 500 (27 Mg) MG tabletIndications: Muscle cramp, nocturnal TAKE 1 TABLET BY MOUTH EVERY EVENING FOR CRAMPS 90 tablet 3 5 Active metoprolol tartrate (Lopressor) 25 MG tabletIndications: Essential hypertension Take 1 tablet (25 mg) by mouth Once per day. 90 tablet 3 5 Active Multiple Vitamin (multivitamin) tabletIndications: Osteopenia, unspecified location Take 1 tablet by mouth Once per day. 90 tablet 3 5 Active rosuvastatin (Crestor) 20 MG tabletIndications: Hyperlipidemia, unspecified hyperlipidemia type Take 1 tablet (20 mg) by mouth Once per day. 90 tablet 3 5 Active Active Problems Problem Noted Date Diagnosed Date Bereavement 01/13/2025 Assessment & Plan (01/14/2025 10:34 AM EDT): During IBH Consult Carolin presenting with depressed mood, Tearful, changes in sleep difficulty falling asleep, fatigue/loss of energy, difficulty concentrating; for a period of 0-6 mo, for most or all symptoms in the context of . Pt reported she continues to experiencing depressive sxs and able to manage them most of the time. Carolin stated she feels better when sharing her emotions with others. Her depression is associated with normal bereavement symptoms after the passing of her sister. Carolin is going through a normal grieving process and is aware of importance of connecting with her values while at the same time honoring her sister's life. Grief 12/11/2024 Depression, unspecified 11/08/2024 Assessment & Plan (01/14/2025 10:34 AM EDT): During IBH Consult Carolin presenting with depressed mood, Tearful, changes in sleep difficulty falling asleep, fatigue/loss of energy, difficulty concentrating; for a period of 0-6 mo, for most or all symptoms in the context of . Pt reported she continues to experiencing depressive sxs and able to manage them most of the time. Carolin stated she feels better when sharing her emotions with others. Her depression is associated with normal bereavement symptoms after the passing of her sister. Carolin is going through a normal grieving process and is aware of importance of connecting with her values while at the same time honoring her sister's life. Assessment & Plan (11/12/2024 12:44 PM EDT): During IBH Consult Carolin presenting with depressed mood, Tearful, hopelessness, irritable mood, loss of interests/pleasure , sense of isolation/loneliness , isolating, change in appetite or weight reduce appetite, changes in sleep difficulty falling asleep and difficulty staying asleep , psychomotor retardation, fatigue/loss of energy, difficulty concentrating; for a period of 0-6 mo, for most or all symptoms in the context of illness or family illness. Pt reports feeling depressed due to her medical condition. Pt endorsed sadness, hopelessness and sleep issues. Symptoms are also associated with the loss of her sister Solange whom last July. Pt finds support in her adult children. She petar by practicing her hai and trusting her healing process. Pt will be monitored by clinician who will provide follow-up BE. Pt not interested in medication at this time. Pt will use her coping strategies to decrease sxs and challenge her negative thoughts. 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 Assessment & Plan (09/01/2023 1:42 PM EST): Most likely capillaritis versus more systemic process Will check CBC and CMP, which showed anemia and slightly worsening renal function and rising BUN - increase hydration - iron supplement - multi vitamin for capillaritis (can be worsened by Vit C deficiency) - triamcinolone cream twice daily prn Iron deficiency anemia 09/01/2023 Assessment & Plan (10/21/2024 3:45 PM EDT): She cannot tolerate oral iron very well Recommend taking in 2-3 times a week as she is able Assessment & Plan (12/18/2023 3:25 PM EDT): Hg 10.7 10/2023 Add Vit C to daily iron supplement Pre-operative exam 08/16/2023 Assessment & Plan (08/16/2023 2:07 PM EST): Requires daily assistance fo r activities of daily living (ADL) and comfort needs 07/12/2023 Assessment & Plan (12/18/2023 3:26 PM EDT): She has not heard yet for [facility] evaluation services, will check in with medical records to see if they know which agency she was referred to, and to give them a call to schedule in home evaluation Assessment & Plan (08/18/2023 8:33 AM EST): Recommend [facility] for bathing, shopping, cooking and dressing needs Assessment & Plan (07/12/2023 4:45 PM EST): Recommend [facility] for bathing and clothing needs Hypercalcemia 05/26/2023 Localized osteoarthritis of right knee Assessment & Plan (12/18/2023 3:25 PM EDT): With swelling currently To apply Diclofenac twice a daily and wrap with jenni wrap to ease swelling Assessment & Plan (08/18/2023 8:32 AM EST): Prior steroid injections not helpful Managing with OTC meds, heat packs Will defer TKA for now Assessment & Plan (05/15/2023 8:45 AM EDT): Prior steroid injections May be at the point to consider TKA, last saw Dr Steve at [facility] 05/2022, will re-refer for this followup discussion Muscle cramp, nocturnal 09/28/2022 Assessment & Plan (05/15/2023 8:45 AM EDT): Somewhat improved with mag supplement Low normal H/H; normal ferritin Mg level normal Awaiting sleep study to rule out RLS due to feeling of waking up, restlessness, needing to stretch Assessment & Plan (09/28/2022 8:14 AM EST): Somewhat improved with mag supplement Low normal H/H Will obtain sleep study to rule out RLS due to feeling of waking up, restlessness, needing to stretch Bilateral knee pain 04/15/2022 Assessment & Plan (04/19/2024 5:10 PM EDT): Xray of R knee to evaluate for effusion RICE therapy until results are available Dyslipidemia 11/06/2018 Osteopenia 08/22/2016 Essential hypertension 07/15/2016 Assessment & Plan (04/19/2024 5:10 PM EDT): Taking Losartan/HCTZ early in the morning and Metoprolol 25mg BP <140/90 at home and here Continue this treatment plan Assessment & Plan (12/18/2023 3:26 PM EDT): Taking Losartan/HCTZ early in the morning BP <140/90 at home and here Continue this treatment plan Assessment & Plan (08/18/2023 8:33 AM EST): Taking Losartan/HCTZ early in the morning BP <140/90 at home and here Continue this system Assessment & Plan (05/15/2023 8:44 AM EDT): Episodes of hypotension with taking Losartan/HCTZ early in the morning Now measuring BP before taking medication and waiting until Bps are higher to take it Continue this system Assessment & Plan (01/28/2023 10:40 AM EDT): Episodes of hypotension with taking Losartan/HCTZ early in the morning Now measuring BP before taking medication and waiting until Bps are higher to take it Continue this system Assessment & Plan (01/04/2023 9:14 AM EDT): Not at goal, will add hydrochlorothiazide 12.5mg daily Maintenance: Losartan 100mg daily, Metoprolol 25mg BMP: normal K, Cr 1.07 (09/16/22) Lipid Panel: LDL 56, continue current dose of statin Rosuvstatin 20mg and ASA daily ASCVD Risk: Calculate pending updated labs EKG: Obtain baseline at f/u - Aerobic exercise to reduce BP. Initial goal of 30 min walk 3-5x/week. Increase as tolerated. - low-sodium diet (goal: <2g/day) and heart healthy diet such as DASH to reduce BP and prevent ASCVD. - Home BP monitoring 1-2 x day with goal of <140/90. - Seek immediate medical attention for chest pain, palpitations, SOB, syncope, or sudden changes in mental status. - Do not change or discontinue current prescriptions without first consulting health care provider Assessment & Plan (09/28/2022 8:13 AM EST): Maintenance: Losartan 100mg daily, Metoprolol 25mg BMP: normal K, Cr 1.07 (09/16/22) Lipid Panel: DUE ASCVD Risk: Calculate pending updated labs EKG: Obtain baseline at f/u - Aerobic exercise to reduce BP. Initial goal of 30 min walk 3-5x/week. Increase as tolerated. - low-sodium diet (goal: <2g/day) and heart healthy diet such as DASH to reduce BP and prevent ASCVD. - Home BP monitoring 1-2 x day with goal of <140/90. - Seek immediate medical attention for chest pain, palpitations, SOB, syncope, or sudden changes in mental status. - Do not change or discontinue current prescriptions without first consulting health care provider Anemia Encounters * This document contains information received from the source organization and may not represent a complete record from that organization. Date Type Department Care Team Description 03/08/2025 Orders Only GENERIC EXTERNAL DATA DEPARTMENT Provider, Generic External Data 02/20/2025 3:15 PM EDT Office Visit [facility] [address] [place] [address] Haylee Rucker NATHALIE Vitreomacular traction, right (Primary Dx) 02/20/2025 Travel 01/28/2025 Results Follow-Up [facility] [address] [place] [address] Sara North MD XR Knee 3 Views Left 01/20/2025 Results Follow-Up [facility] [address] [place] [address] Gi Heredia MD Vitamin D, 25-Hydroxy, Total, Immunoassay, Hepatitis B Core Antibody, Total, HIV-1/2 Antigen and Antibodies, Fourth Generation, with Reflexes 01/15/2025 Refill [facility] [address] [place] [address] Sara North MD 01/13/2025 4:00 PM EDT Office Visit [facility] [address] [place] [address] Sara North MD Chronic pain of left knee (Primary Dx); Hyperlipidemia, unspecified hyperlipidemia type; Osteopenia, unspecified location; Essential hypertension; Muscle cramp, nocturnal; Seasonal allergies 01/13/2025 Travel 01/10/2025 Telephone [facility] [address] [place] [address] Sara North MD chart prep from Last 3 Months Immunizations Immunization Administration Dates Next Due Influenza High-dose Quadriva lent Preservative Free 05/12/2023,06/27/2022,05/11/2021 Influenza injectable quadriv alent preservative free 06/01/2020,05/28/2020 Influenza, High Dose Seasona l, Preservative Free 08/19/2019,05/24/2017 Influenza, seasonal, injecta ble, preservative free 10/14/2024 Moderna Covid-19 Vaccine 12+ 09/21/2020 Pfizer Covid-19 Vaccine 12+ 09/21/2020 Pneumococcal Conjugate PCV 13 11/06/2018 Pneumococcal Polysaccharide PPSV23 06/27/2022 Tdap 01/12/2017 Zoster, Recombinant 02/03/2018,12/05/2017 Family History Medical History Relation Name Comments Heart attack Mother Kecia Stroke Mother Kecia passed 20 yrs a go Breast cancer Niece Jessie Heart attack Sister 1 Solange Heart disease Sister 2 Bhat Pacemaker Relation Name Status Comments Brother Father Mother Kecia Niece Jessie Sister 1 Solange Sister 2 Hbat Alive Social History Tobacco Use Types Packs/Day Years Used Date Smoking Tobacco: Never Passive Smoke Exposure: Never Smokeless Tobacco: Never Alcohol Use Standard Drinks/Week Comments Never 0 (1 standard drink = 0.6 oz pur e alcohol) Depression Answer Date Recorded Patient Health Questionnaire-9 Score 8 01/14/2025 Patient Health Questionnaire-9 Score 8 01/14/2025 Last PHQ-9: Questionnaire Data Not on file 0 01/14/2025 Housing Stability Answer Date Recorded What is [...] Answer Date Recorded Patient Health Questionnaire-2 Score 3 01/14/2025 Internet Access Answer Date Recorded Internet Access Q1 Yes 10/28/2024 Internet Access Q2 Not on file 10/28/2024 Comments Unknown Sex and Gender Information Value Date Recorded Sex Assigned at Female 06/13/2022 10:30 AM EDT Legal Sex Female 10:30 AM EDT Gender Identity Female 06/13/2022 10:30 AM EDT Sexual Orientation Straight 06/13/2022 10 :30 AM EDT Last Filed Vital Signs Vital Sign Reading Time Taken Comments Blood Pressure 118/64 01/13/2025 4:50 PM EDT Pulse 60 01/13/2025 4:50 PM EDT Temperature 37.1 C (98.7 F) 01/13/2025 4:12 PM EDT Respiratory Rate 14 01/13/2025 4:12 PM EDT Oxygen Saturation 100% 10/14/2024 3:53 PM EST Inhaled Oxygen Concentration - - Weight 65.5 kg (144 lb 6.4 oz) 01/13/2025 4:12 P M EDT Height 148 cm (4' 10.27 ) 01/13/2025 4:12 PM EDT Body Mass Index 29.9 01/13/2025 4:12 PM EDT Plan of Treatment Health Maintenance Due Date Last Done Comments RSV Patients and Patients Aged 60 years or older (1 - 1-dose 75+ series) 2020 COVID-19 Vaccine ( season) 2025 08/17/2024, 01/22/2022, 05/11/2021, Additional history exists Influenza Vaccine (#1) 2025 , 05/12/2023, 06/27/2022, Additional history exists Alcohol/Substance Use Screening 10/28/2025 10/28/2024 SDOH Screening 10/28/2025 10/28/2024 Tobacco Screening 01/13/2026 01/13/2025 Depression Screening 01/14/2026 01/14/2025, 01/15/20 25 DTaP/Tdap/Td Vaccines (2 - Td or Tdap) 01/12/2027 01/12/2017 Lipid Panel 01/03/2028 01/02/2023, 05/09/2022 Zoster Vaccines Completed 02/03/2018, 12/05/2017 Pneumococcal Vaccine: 50+ Years Completed 06/27/2022, 11/06/2018 HIB Vaccines Aged Out No longer eligi ble based on patient's age to complete this topic HPV Vaccines Aged Out No longer eligi ble based on patient's age to complete this topic Hepatitis A Vaccines Aged Out No long er eligible based on patient's age to complete this topic Hepatitis B Vaccines Aged Out No long er eligible based on patient's age to complete this topic IPV Vaccines Aged Out No longer eligi ble based on patient's age to complete this topic Meningococcal B Vaccine Aged Out No l onger eligible based on patient's age to complete this topic Meningococcal Vaccine Aged Out No smooth kulwant eligible based on patient's age to complete this topic RSV under 20 months Aged Out No longe r eligible based on patient's age to complete this topic Rotavirus Vaccines Aged Out No longer eligible based on patient's age to complete this topic Procedures Procedure Name Priority Date/Time Associated Diagnosis Comments XR SHOULDER 2+ VIEWS RIGHT Routine 03/08/2025 7:52 PM EDT HIGH SENSITIVITY TROPONIN I Routine 03/08/2025 6:43 PM EDT BASIC METABOLIC PANEL Routine 03/08/2025 6:43 PM EDT CBC WITH AUTO DIFFERENTIAL Routine 03/08/2025 6:43 PM EDT OCT, RETINA - OD - RIGHT EYE Routine 02/20/2025 3:15 PM EDT Vitreomacular traction, right COMPREHENSIVE METABOLIC PANEL Routine 01/16/2025 2:57 PM EDT Chronic pain of left knee CBC WITH AUTO DIFFERENTIAL Routine 01/16/2025 2:57 PM EDT Chronic pain of left knee SED RATE BY MODIFIED WESTERGREN Routine 01/16/2025 2:57 PM EDT Chronic pain of left knee HIV 1/2 ANTIGEN/ANTIBODY, FOURTH GENERATION W/RFL Routine 01/16/2025 2:57 PM EDT Screen for sexually transmitted diseases HEPATITIS B CORE AB TOTAL Routine 01/16/2025 2:57 PM EDT Screen for sexually transmitted diseases VITAMIN D,25-OH,TOTAL,IA Routine 01/16/2025 2:57 PM EDT At risk for falling XR KNEE 3 VIEWS LEFT Routine 01/16/2025 1:55 PM EDT Chronic pain of left knee LIPID PANEL, STANDARD Routine 01/02/2023 2:51 PM EDT Essential hypertension Dyslipidemia from Last 3 Months or Most Recently Relevant to Health Maintenance Results * XR Shoulder 2+ Views Right (03/08/2025 7:52 PM EDT) Anatomical Region Laterality Modality Upper Extremities, Shoulder Right Radi ographic Imaging 03/08/2025 7:52 PM EDT Narrative 03/08/2025 7:53 PM EDT [address] [address] XRay Report Signed Patient: Carolin Avila MR#: [id number] : 1945 Acct:[id number] Age/Sex: 79 / F ADM Date: 03/08/25 Loc: HO.ED Attending Dr: Ordering Physician: Shannon Vazquez Date of Service: 03/08/25 Procedure(s): XR shoulder RT min 2V Accession Number(s): [id number] cc: Sara North; Shannon Vazquez CLINICAL HISTORY: atraumatic R shoulder pain 4 view right shoulder Comparison: None provided Findings: No fractures or dislocations. No significant loss of joint space or osteophytes. No erosions. No radiopaque foreign body. IMPRESSION: 1. No acute findings. This document has been electronically signed by: Amado De La O MD on 03/08/2025 19:52:34 Dictated By: Amado De La O MD Signed By: <Electronically signed by Amado De La O MD in OV> 03/08/251952 DD/ 51 TD/TT: 03/08/251951 Director Digital: Procedure Note Donotuseinterpreter, Image - 03/08/[address] [address] XRay Report Signed Patient: Pascale AvilaR#: [id number] : 5Acct:[id number] Age/Sex: 79 / FADM Date: 03/08/25 Loc: HO.ED Attending Dr: Ordering Physician: Shannon Vazquez Date of Service: 03/08/25 Procedure(s): XR shoulder RT min 2V Accession Number(s): [id number] cc: Sara North; Shannon Vazquez CLINICAL HISTORY: atraumatic R shoulder pain 4 view right shoulder Comparison: None provided Findings: No fractures or dislocations. No significant loss of joint space or osteophytes. No erosions. No radiopaque foreign body. IMPRESSION: 1. No acute findings. This document has been electronically signed by: Amado De La O MD on 03/08/2025 19:52:34 Dictated By: Amado De La O MD Signed By: <Electronically signed by Amado De La O MD in OV> 03/08/251952 DD/ 51 TD/TT: 03/08/251951 Director Digital: [facility] External Provider IMG XR PROCEDURES Edited Result - Final * High Sensitivity Troponin I (03/08/2025 6:43 PM EDT) [facility] TROPONIN I HIGH SENSITIVITY <2.7 <3.5 - 17.0 ng/L [facility] Comment:The Green high sens itivity Troponin-I results should beused in conjunction with other diagnostic information suchas ECG, clinical observations and information, and patientsymptoms to aid in the diagnosis of KS. 03/08/2025 6:43 PM EDT 03/08/2025 6:55 PM EDT Generic External Data Provider LAB BLOOD ORDERAB LES Final Result [facility] [address] [place] [phone] * (ABNORMAL) CBC auto differential (03/08/2025 6:43 PM EDT) Only the most recent of2 resultswithin the time period is included. [facility] White Blood Count 5.6 4.8 - 10.8 X10*3/uL [facility] Red Blood Count 3.64(L) 4.20 - 5.50 X10*6/uL [facility] Hemoglobin 10.4(L) 12.0 - 16.0 g/dl [facility] Hematocrit 29.2(L) 37.0 - 47.0 % [facility] Mean Corpuscular Volume 80.2 80.0 - 98.0 fL [facility] Mean Corpuscular Hemoglobin 28.6 27.0 - 33.0 pg [facility] Mean Corpuscular HGB Conc 35.6(H) 31.0 - 35.0 g/dl [facility] Red Cell Distribution Width 12.0 11.0 - 16.0 % [facility] Platelet Count 244 160 - 400 X10*3/uL [facility] Mean Platelet Volume 10.5 9.4 - 12.3 fL [facility] Neutrophils Percent Auto 68.5 45 - 73 % [facility] Imm Gran Pct Auto 0.2 0.0 - 0.4 % [facility] Lymphocytes Percent Auto 20.6 20 - 40 % [facility] Monocytes Percent Auto 9.8 2 - 11 % [facility] Eosinophils Percent Auto 0.4 0 - 4 % [facility] Basophils Percent Auto 0.5 0 - 2 % [facility] NRBC Pct Auto 0.0 0.0 - 0.2 /100WBC [facility] Neutrophils Absolute Auto 3.9 2.0 - 8.3 x10*3/uL [facility] Imm Gran Abs Auto 0.01 0.00 - 0.03 X10*3/uL [facility] Lymphocytes Absolute Auto 1.2 1.2 - 4.9 X10*3/uL [facility] Monocytes Absolute Auto 0.6 0.1 - 1.2 X10*3/uL [facility] Eosinophils Absolute Auto 0.0 0.0 - 0.4 X10*3/uL [facility] Basophils Absolute Auto 0.0 0.0 - 0.2 X10*3/uL [facility] NRBC Abs Auto 0.000 0.0 - 0.012 X10*3/uL [facility] 03/08/2025 6:43 PM EDT 03/08/2025 6:46 PM EDT us Generic External Data Provider LAB BLOOD ORDERAB LES Final Result [facility] [address] [place] [phone] * (ABNORMAL) Basic Metabolic Panel (03/08/2025 6:43 PM EDT) Sodium 139 135 - 145 mmol/L [facility] Potassium 4.1 3.3 - 5.1 mmol/L [facility] Chloride 106 96 - 108 mmol/L [facility] Carbon Dioxide 23 22 - 29 mmol/L [facility] Anion Gap 14 12 - 20 [facility] Urea Nitrogen (BUN) 27(H) 9 - 16 mg/dL [facility] Creatinine, Serum 1.08 0.5 - 1.4 mg/dL [facility] Creatinine Clr Calc Pharmacy 38.2 [facility] Comment:Provided height and weight: 160.02 cm,64.6 kg.eGFR (calculated from the MDRD study equation) and eCrCl(calculated from the Cockcroft-Gault equation) are based ondifferent parameters and may not yield comparable results.If eCrCl result is absurd, please check patient'sheight/weight. Estimated Glomerular Filt Rate 49 [facility] Comment:Chronic Kidney Disea se: Estimated GFR < 60 mL/min/1.92m1Peyftr Kidney Disease: Estimated GFR < 15 mL/min/1.73m2 Glucose 103 60 - 115 mg/dL [facility] Calcium 9.7 8.4 - 10.2 mg/dL [facility] 03/08/2025 6:43 PM EDT 03/08/2025 6:46 PM EDT us Generic External Data Provider LAB BLOOD ORDERAB LES Final Result [facility] [address] [place] [phone] * OCT, Retina - OD - Right Eye (02/20/2025 3:15 PM EDT) Haylee Estrada, OD - 02/21/2025 10:49 AM EDT OCT RETINA INTERPRETATION Optical Coherence Tomography Interpretation Report Reliability: OD: SS 43 - adequate quality image Measurements: Central subfoveal thickness OD: 236 microns Test findings: OD: OD: Distorted foveal contour due to VMT, patch of drusen superiorly, all layers intact, no IRF/SRF. Stable to 6 months ago. Impression and Plan: Mild VMT right eye (OD). Monitor in 1 year. Haylee Rucker OD OPHTH TOMOGRAPHY Final Result * Vitamin D, 25-Hydroxy, Total, Immunoassay (01/16/2025 2:57 PM EDT) Vitamin D 25-OH Total 57.3 >30 ng/mL [facility] Comment: Health Based Reference Values*< 20 ng/mL Mnwconour40-26 ng/mL Insufficient> 30 ng/mL Sufficient*Luis THOMAS. N Engl J Med. 2007;[id number]:[id number] is no well-established upper level of normal vitamin Dlevels. Some laboratories use 50 ng/mL as an upper limit ofnormal. However, toxicity is patient-dependent and may occurat any level. Careful correlation with the patient'spresentation is necessary and, if there is concern forvitamin D toxicity, treatment should be consideredirrespective of the serum level.Care must be taken in interpreting Vitamin D results fromdifferent laboratories and methodologies. Published datademonstrated that results from patients undergoinghemodialysis may show a negative bias when tested withvarious automated 25-OH vitamin D assays when compared toLC-MS/MS.When testing samples from patients whose predominant form ofVitamin D is Vitamin D2, such as patients receiving VitaminD2 supplementation, results that are subtherapeutic shouldbe confirmed with another method such as LC-MS/MS. Blood Venous blood specimen / Unknown 01/16/2025 2:57 PM EDT 01/16/2025 4:03 PM EDT us Gi Heredia MD LAB BLOOD ORDERABLES Final R esult Performing Organization Address City/[facility]/ZIP Co de Phone Number [facility] [address] [place] [phone] * Hepatitis B Core Antibody, Total (01/16/2025 2:57 PM EDT) Pathologist [facility] Hepatitis B Core Antibody Nonreactive Nonreactive [facility] Blood Venous blood specimen / Unknown 01/16/2025 2:57 PM EDT 01/16/2025 4:03 PM EDT Gi Heredia MD LAB BLOOD ORDERABLES Final R esult Performing Organization Address [facility] Co de Phone Number [facility] [address] [place] [phone] * HIV-1/2 Antigen and Antibodies, Fourth Generation, with Reflexes (01/16/2025 2:57 PM EDT) Pathologist [facility] HIV AB/AG Nonreactive Nonreactive [facility] Comment:HIV-1 p24 Ag and/or HIV-1/HIV-2 Ab not detected.A test result that is nonreactive does not exclude thepossibility of exposure to or infection with HIV-1 and/orHIV-2. Nonreactive results in this assay for individualswith prior exposure to HIV-1 and/or HIV-2 may be due toantigen and antibody levels that are below the limit ofdetection of this assay.The [employer] HIV Ag/Ab Combo assay result andsupplemental assay results should be interpreted inconjunction with the patient's clinical presentation,history and other laboratory results. If the results areinconsistent with clinical evidence, additional testing issuggested to confirm the result. Blood Venous blood specimen / Unknown 01/16/2025 2:57 PM EDT 01/16/2025 4:03 PM EDT us Gi Heredia MD LAB BLOOD ORDERABLES Final R esult Performing Organization Address [facility] Co de Phone Number [facility] [address] [place] [phone] * (ABNORMAL) Sed Rate by Modified Westergren (01/16/2025 2:57 PM EDT) Erythrocyte Sedimentation Rate 38(H) 0 - 20 MM/HR [facility] Comment:Patients with polycy themia and many hemoglobin abnormalitiesmay have depressed sed rates whereas patients with anemiamay have elevated sed rates. Blood Venous blood specimen / Unknown 01/16/2025 2:57 PM EDT 01/16/2025 4:03 PM EDT Sara North MD LAB BLOOD ORDERABLES Final Res ult Performing Organization Address [facility] Co de Phone Number [facility] [address] [place] [phone] * (ABNORMAL) Comprehensive Metabolic Panel (01/16/2025 2:57 PM EDT) Sodium 140 135 - 145 mmol/L [facility] Potassium 4.2 3.3 - 5.1 mmol/L [facility] Chloride 106 96 - 108 mmol/L [facility] Carbon Dioxide 26 22 - 29 mmol/L [facility] Anion Gap 12 12 - 20 [facility] Urea Nitrogen (BUN) 32(H) 9 - 16 mg/dL [facility] Creatinine, Serum 1.01 0.5 - 1.4 mg/dL [facility] Estimated Glomerular Filt Rate 53 [facility] Comment:Chronic Kidney Disea se: Estimated GFR < 60 mL/min/1.41k6Dbzocz Kidney Disease: Estimated GFR < 15 mL/min/1.73m2 Glucose 88 60 - 115 mg/dL [facility] Calcium 10.2 8.4 - 10.2 mg/dL [facility] Bilirubin, Total 0.4 0.0 - 1.0 mg/dL [facility] Aspartate Amino Transferase 23 5 - 31 U/L [facility] Alanine Aminotransferase 29 0 - 31 U/L [facility] Total Protein 7.7 6.5 - 8.0 g/dL [facility] Albumin Level 4.3 3.5 - 5.0 g/dL [facility] Alkaline Phosphatase 88 39 - 117 U/L [facility] Blood Venous blood specimen / Unknown 01/16/2025 2:57 PM EDT 01/16/2025 4:03 PM EDT us Sara North MD LAB BLOOD ORDERABLES Final Res ult Performing Organization Address City/State/[facility] Co de Phone Number [facility] [address] [place] [phone] * XR Knee 3 Views Left (01/16/2025 1:55 PM EDT) Anatomical Region Laterality Modality Lower Extremities, Knee Left Radiogra phic Imaging 01/16/2025 1:55 PM EDT Narrative 01/16/2025 3:04 PM EDT [address] [address] XRay Report Signed Patient: Carolin Avila MR#: [id number] : 1945 Acct:[id number] Age/Sex: 79 / F ADM Date: 01/16/25 Loc: HO.HHCX Attending Dr: Sara North MD Ordering Physician: Sara North Date of Service: 01/16/25 Procedure(s): XR knee LT 3V Accession Number(s): [id number] cc: Sara North EXAMINATION: XR KNEE, LEFT CLINICAL INFORMATION: left knee pain COMPARISON: AP standing knee from March 28, 2022 TECHNIQUE: AP lateral and AP axial views of the left knee. FINDINGS: There is minimal narrowing of the medial joint space. There are tricompartmental marginal osteophytes. Osteophytes are largest along the medial joint line, and trochlea. On the lateral view, there is somewhat globular calcific density projecting over the posterior joint line. On the frontal view, it is seen in the lateral compartment, near the intercondylar notch. There is a joint effusion. XR/XR knee LT 3V IMPRESSION: Mild 3 compartment osteoarthritis of the knee with a joint effusion. Calcific density projecting in the posterior lateral joint could represent chondrocalcinosis versus an intra-articular body. Electronically signed by: John Koch MD 01/16/2025 03:01 PM EDT RP Dictated By: John Koch MD Signed By: <Electronically signed by John Koch MD in OV> 01/16/25 1501 DD/ 1355 TD/TT: 01/16/25 1450 Director Digital: Procedure Note Donotuseinterpreter, Image - 01/16/2025 [place] [id number] XRay Report Signed Patient: Rohith Avila#: [id number] : 5Acct:[id number] Age/Sex: 79 / FADM Date: 01/16/25 Loc: HO.HHCX Attending Dr: Sara North MD Ordering Physician: Sara North Date of Service: 01/16/25 Procedure(s): XR knee LT 3V Accession Number(s): [id number] cc: Sara North EXAMINATION: XR KNEE, LEFT CLINICAL INFORMATION: left knee pain COMPARISON: AP standing knee from March 28, 2022 TECHNIQUE: AP lateral and AP axial views of the left knee. FINDINGS: There is minimal narrowing of the medial joint space. There are tricompartmental marginal osteophytes. Osteophytes are largest along the medial joint line, and trochlea. On the lateral view, there is somewhat globular calcific density projecting over the posterior joint line. On the frontal view, it is seen in the lateral compartment, near the intercondylar notch. There is a joint effusion. XR/XR knee LT 3V IMPRESSION: Mild 3 compartment osteoarthritis of the knee with a joint effusion. Calcific density projecting in the posterior lateral joint could represent chondrocalcinosis versus an intra-articular body. Electronically signed by: John Koch MD 01/16/2025 03:01 PM EDT Dictated By: John Koch MD Signed By: <Electronically signed by John Koch MD in OV> 01/16/25 1501 DD/ 1355 TD/TT: 01/16/25 1450 Director Digital: Sara North MD IMG XR PROCEDURES Edited Resul t - Final * Lipid Panel, Standard (01/02/2023 2:51 PM EDT) Cholesterol, Total 132 <200 mg/dL [facility] [place] [facility] HDL Cholesterol 57 > OR = 50 mg/dL [facility] [place] [facility] Triglycerides 105 <150 mg/dL [facility] [place] [facility] LDL Cholesterol 56 mg/dL (calc) [facility] Comment: Reference range: <100 Desirable range <100 mg/dL for primary prevention; <70 mg/dL for patients with CHD or diabetic patients with > or = 2 CHD risk factors. LDL-C is now calculated using the Wu-Teresa calculation, which is a validated novel method providing better accuracy than the Friedewald equation in the estimation of LDL-C. Wu SS et al. DARIEL. 2013;310(19): 3250-5226 (http://education.ILD Teleservices.Dheere Bolo/faq/YMH117) Chol/HDLC Ratio 2.3 <5.0 (calc) [facility] [place] [facility] Non-HDL Cholesterol 75 <130 mg/dL (calc) [facility] [place] [facility] Comment: For patients with diabetes plus 1 major ASCVD risk factor, treating to a non-HDL-C goal of <100 mg/dL (LDL-C of <70 mg/dL) is considered a therapeutic option. Blood Venous blood specimen / Unknown 01/02/2023 2:51 PM EDT 01/02/2023 2:52 PM EDT Narrative [facility] - 01/03/2023 12:27 PM EDT FASTING:UNKNOWN COLLECTION KIT GIVEN TO PATIENT. PATIENT ADVISED TO RETURN. FASTING: UNKNOWN us Sara North MD LAB BLOOD ORDERABLES Final Res ult [facility] [address], [place] [address] [facility] [employer] [address] [place] [phone] from Last 3 Months or Most Recently Relevant to Health Maintenance Insurance [facility] Care Teams Knuckler Relationship Specialty Start Date End Date Sara North MD [address] [place], [place] [phone] PCP - General Family Medicine 09/26/22 Jigna Holt OD [address] [place], [place] [phone] Optometry 10/24/24 [facility] Orthopedics 10/28/24
== END 2025-04-07 15:16 | disposition home or self-care (01) ==
LOC: HO.HOS 14:51
PROVIDERS: Visit Provider Orthopaedic Surgery
DX: M17.12 Unilateral primary osteoarthritis, left knee (principal)
CPT/HCPCS: 20610; 99213

== ENCOUNTER → 2025-04-07 14:51 | Outpatient (BNVA) | payer MEDICARE, MEDICAID, SELFPAY | PROVIDERS: Visit Provider Orthopaedic Surgery | DX: M17.12 Unilateral primary osteoarthritis, left knee (principal); Z96.651 Presence of right artificial knee joint | CPT/HCPCS: 20610; 99212; J0665; J1100; J2003 ==

== ENCOUNTER 2025-04-30 14:32 | Outpatient (REF) | payer MEDICARE, MEDICAID, SELFPAY ==
--- OUTSIDE RECORDS SUMMARY | 2025-04-28 17:40 | XMS_ITS | Encounter Summary ---
Author Organization [employer] Address [address] [facility] [address] [place] [address] Care Team Providers Care Mcat Tutor Name Role Phone Sara North MD Primary Care Provider [phone] Jigna Holt OD Unavailable [phone] Reason for Referral * Consultation (Routine) - Closed Specialty Diagnoses / Procedures Referred By Contac t Referred To Contact Physical Therapy Diagnoses Chronic right shoulder pain Jerry Mcmanus MD [address] [place] [phone] Phone: tel: fax: [facility] [place] [address] [place] [address] Phone: tel: fax: Referral ID Status Reason Start Date Expiration Date V isits Requested Visits Authorized [id number] Closed Specialty Services Required 04/28/2025 04/28/2026 1 1 Encounter Details Date Type Department Care Team (Late st Contact Info) Description 04/28/2025 5:40 PM EDT Office Visit [facility] [address] [place] [phone] Jerry Mcmanus MD [address] [place] [address] [phone] Chronic right shoulder pain (Primary Dx); Rib pain on right side Social History Tobacco Use Types Packs/Day Years [...] AM EDT documented as of this encounter Last Filed Vital Signs Vital Sign Reading Time Taken Comments Blood Pressure 138/67 04/28/2025 5:04 PM EDT Pulse 66 04/28/2025 5:04 PM EDT Temperature 36.3 C (97.4 F) 04/28/2025 5:04 PM EDT Respiratory Rate 16 04/28/2025 5:04 PM EDT Oxygen Saturation - - Inhaled Oxygen Concentration - - Weight 63.9 kg (140 lb 12.8 oz) 04/28/2025 5:04 PM EDT Height 148 cm (4' 10.27 ) 04/28/2025 5:04 PM EDT Body Mass Index 29.16 04/28/2025 5:04 PM EDT documented in this encounter Progress Notes * Jerry Mcmanus MD - 04/28/2025 5:40 PM EDT Subjective History was provided by the patient. Carolin Tijerina is a 80 y.o. female who presents for evaluation of ongoing right shoulder pain for several months. Denies any trauma or fall. Fairly quick onset. Difficulty raising her arm beyond 90 degrees. Was evaluated [place] [facility] [place] for right shoulder pain. X-ray did not reveal any fractures or dislocations; there were no significant loss of joint space or osteophytes; there were no erosions or radiopaque foreign body. She was previously treated with Acetaminophen PO, Diclofenac topical, Ketorolac IM, and Cyclobenzaprine PO. States no significant improvement with these interventions. She uses a cane, but using her left hand. Also reports pain in the area below her right axilla when she lifts her right arm. Also reports pain in the right-sided upper back and lateral shoulder area. Objective Vitals: 04/28/25 1704 BP: 138/67 BP Location: Left arm Patient Position: Sitting BP Cuff Size: Adult Pulse: 66 Resp: 16 Temp: 97.4 ??F (36.3 ??C) TempSrc: Oral Weight: 140 lb 12.8 oz (63.9 kg) Height: 4' 10.27 (1.48 m) Physical Exam Vitals reviewed. Constitutional: General: She is not in acute distress. Appearance: Normal appearance. She is not ill-appearing, toxic-appearing or diaphoretic. HENT: Head: Normocephalic and atraumatic. Right Ear: External ear normal. Left Ear: External ear normal. Nose: Nose normal. Mouth/Throat: Mouth: Mucous membranes are moist. Pharynx: Oropharynx is clear. Eyes: Extraocular Movements: Extraocular movements intact. Conjunctiva/sclera: Conjunctivae normal. Cardiovascular: Rate and Rhythm: Normal rate and regular rhythm. Heart sounds: Normal heart sounds. Pulmonary: Effort: Pulmonary effort is normal. No respiratory distress. Breath sounds: Normal breath sounds. No wheezing, rhonchi or rales. Chest: Chest wall: No tenderness. Musculoskeletal: General: Tenderness present. No swelling or deformity. Normal range of motion. Cervical back: Neck supple. Comments: Right shoulder limited AROM FF/ABD 90, PROM FF/ABD 120, ER 30, IR L1; no deformity, but tenderness in the subacromial area; unable to do Neer's test, but positive Hawkin's; tenderness in the upper fibers of right trapezius with hypertrophied/hypertonic musculature; no axillary lymphadenopathy; no step-offs of ribs on the right side Lymphadenopathy: Cervical: No cervical adenopathy. Skin: General: Skin is warm and dry. Neurological: General: No focal deficit present. Mental Status: She is alert and oriented to person, place, and time. Motor: No weakness. Psychiatric: Mood and Affect: Mood normal. Behavior: Behavior normal. Diagnoses and all orders for this visit: Chronic right shoulder pain (Primary) - XR Ribs 2 Views Right; Future - Referral to Physical Therapy; Future - predniSONE (Deltasone) 20 MG tablet; Take 2 tablets (40 mg) by mouth Once per day for 5 days. Rib pain on right side - XR Ribs 2 Views Right; Future Patient [facility] to [facility] due to right shoulder pain Suspect right upper trapezius strain and subacromial bursitis based on clinical evaluation Limited AROM at right shoulder No preceding trauma or activity change Recent Shoulder X-ray unremarkable Also reports pain in the right-sided rib #4-5 area under the axilla Normal pulmonary exam without respiratory distress No step-offs Check X-ray of Ribs Rx Prednisone PO 5-day course Potential adverse effects reviewed Referral to Physical Therapy Continue with topical Diclofenac Advised to contact the clinic if persistent or worsening symptoms Indications for UC/ER use reviewed documented in this encounter Plan of Treatment Scheduled Referrals Name Type Priority Associated Diagnoses Orde r Schedule Referral to Physical Therapy Outpatient Referral Routine Chronic right shoulder pain Expected: 04/28/2025 (Approximate), Expires: 04/28/2026 documented as of this encounter Procedures Procedure Name Priority Date/Time Associated Diagnosis Comments XR RIBS 3 VIEWS RIGHT W CHEST 1 VIEW Routine 04/30/2025 3:00 PM EDT documented in this encounter Results * XR Ribs 3 Views Right with Chest 1 View (04/30/2025 3:00 PM EDT) Anatomical Region Laterality Modality Radiographic Liss ging 04/30/2025 3:00 PM EDT Narrative 04/30/2025 3:29 PM EDT [address] [address] XRay Report Signed Patient: Carolin Avila MR#: [id number] : 1945 Acct:[id number] Age/Sex: 80 / F ADM Date: 04/30/25 Loc: HO.XRMARLEEN Attending Dr: Jerry Mcmanus MD Ordering Physician: Jerry Mcmanus MD Date of Service: 04/30/25 Procedure(s): XR ribs RT min 3V w CXR1V Accession Number(s): [id number] cc: Sara North; Jerry Mcmanus MD Reason for Exam: Right-sided rib pain #4-5 under the axilla area. EXAMINATION: XR RIBS, RIGHT CLINICAL INFORMATION: Right-sided rib pain #4-5 under the axilla area. COMPARISON: 06/04/2019 TECHNIQUE: 3 views of the right ribs were obtained. FINDINGS: Lungs are clear. No consolidation, pneumothorax, or pleural effusion. The cardiomediastinal silhouette and pulmonary vasculature are normal. Ribs appear intact. No fractures are identified. Degenerative changes throughout the spine. There are cholecystectomy clips present. XR/XR ribs RT min 3V w CXR1V IMPRESSION: No acute thoracic findings. No definite rib fractures seen. Electronically signed by: Napoleon Multani MD 04/30/2025 03:26 PM EDT Dictated By: Napoleon Multani MD Signed By: <Electronically signed by Napoleon Multani MD in OV> 04/30/25 1526 DD/ 1500 TD/TT: 04/30/25 1507 Installer [employer]semblies: Procedure Note Donotuseinterpreter, Image - 04/30/[address] [address] XRay Report Signed Patient: Rohith Avila#: [id number] : 5Acct:[id number] Age/Sex: 80 / FADM Date: 04/30/25 Loc: CHOLO Attending Dr: Jerry Mcmanus MD Ordering Physician: Jerry Mcmanus MD Date of Service: 04/30/25 Procedure(s): XR ribs RT min 3V w CXR1V Accession Number(s): [id number] cc: Sara North; Jerry Mcmanus MD Reason for Exam: Right-sided rib pain #4-5 under the axilla area. EXAMINATION: XR RIBS, RIGHT CLINICAL INFORMATION: Right-sided rib pain #4-5 under the axilla area. COMPARISON: 06/04/2019 TECHNIQUE: 3 views of the right ribs were obtained. FINDINGS: Lungs are clear. No consolidation, pneumothorax, or pleural effusion. The cardiomediastinal silhouette and pulmonary vasculature are normal. Ribs appear intact. No fractures are identified. Degenerative changes throughout the spine. There are cholecystectomy clips present. XR/XR ribs RT min 3V w CXR1V IMPRESSION: No acute thoracic findings. No definite rib fractures seen. Electronically signed by: Napoleon Multani MD 04/30/2025 03:26 PM EDT Dictated By: Napoleon Multani MD Signed By: <Electronically signed by Napoleon Multani MD in OV> 04/30/25 1526 DD/ 1500 TD/TT: 04/30/25 1507 Installer [employer]semblies: Jerry Mcamnus MD IMG XR PROCEDURES Edited Result - Final documented in this encounter Visit Diagnoses Diagnosis Chronic right shoulder pain- Primary Pain in joint, shoulder region Rib pain on right side documented in this encounter Additional Health Concerns Assessment Noted Time PHQ-9 Depression Total Score: 8 01/15/20 25 10:25 AM EDT documented as of this encounter Care Teams Mcat Tutor Relationship Specialty Start Date End Date Sara North MD [address] [place] [phone] PCP - General Family Medicine 09/26/22 Jigna Holt OD [address] [place] [phone] Optometry 10/24/24 [facility] [place] 10/28/24 documented as of this encounter
--- NOTE | ~2025-04-30 | XR_ITS ---
EXAMINATION: XR RIBS, RIGHT CLINICAL INFORMATION: Right-sided rib pain #4-5 under the axilla area. COMPARISON: 06/04/2019 TECHNIQUE: 3 views of the right ribs were obtained. FINDINGS: Lungs are clear. No consolidation, pneumothorax, or pleural effusion. The cardiomediastinal silhouette and pulmonary vasculature are normal. Ribs appear intact. No fractures are identified. Degenerative changes throughout the spine. There are cholecystectomy clips present. XR/XR ribs RT min 3V w CXR1V IMPRESSION: No acute thoracic findings. No definite rib fractures seen. Electronically signed by: Napoleon Multani MD 04/30/2025 03:26 PM EDT RP
--- OUTSIDE RECORDS SUMMARY | 2025-04-30 18:14 | XMS_ITS | Clinical Summary ---
Author Organization [employer] Address [address] [place] [address] Care Team Providers Care Legal Administrator Name Role Phone Sara North MD Primary Care Provider [phone] Jigna Holt OD Unavailable [phone] Allergies No known active allergies Medications [...] per day. 90 tablet 3 5 Active predniSONE (Deltasone) 20 MG tabletIndications: Chronic right shoulder pain Take 2 tablets (40 mg) by mouth Once per day for 5 days. 10 tablet 5 025 Active Active Problems Problem Noted Date Diagnosed [...] EDT): She has not heard yet for [employer] evaluation services, will check in with medical records to see if they know which agency she was referred to, and to give them a call to schedule in home evaluation Assessment & Plan (08/18/2023 8:33 AM EST): Recommend [employer] for bathing, shopping, cooking and dressing needs Assessment & Plan (07/12/2023 4:45 PM EST): Recommend [employer] for bathing and clothing needs Hypercalcemia 05/26/2023 [...] consider TKA, last saw Dr Steve at [facility] 05/2022, will re-refer for this followup discussion [...] first consulting health care provider Anemia Encounters Date Type Department Care Team Description 04/28/2025 5:40 PM EDT Office Visit [facility] [address] [place] [address] Jerry Mcmanus MD Chronic right shoulder pain (Primary Dx); Rib pain on right side 04/28/2025 Travel 03/08/2025 Orders Only GENERIC EXTERNAL DATA DEPARTMENT Provider, Generic External Data 02/20/2025 3:15 PM EDT Office Visit [facility] [address] [place] [address] Tarka, Haylee, OD Vitreomacular traction, right (Primary Dx) 02/20/2025 Travel 01/28/2025 Results Follow-Up [facility] MEDIC[facility] [address] [place] [address] Sara North MD XR Knee 3 Views Left from Last 3 Months Immunizations Immunization Administration [...] Relation Name Status Comments Brother Father Mother Kceia Niece Jessie Sister 1 Solange Sister 2 Bhat Alive Social History Tobacco Use Types Packs/Day [...] 16 04/28/2025 5:04 PM EDT Oxygen Saturation 100% 10/14/2024 3:53 PM EST Inhaled Oxygen Concentration - - Weight 63.9 kg (140 lb 12.8 oz) 04/28/2025 5:04 PM EDT Height 148 cm (4' 10.27 ) 04/28/2025 5:04 PM EDT Body Mass Index 29.16 04/28/2025 5:04 PM EDT Plan of Treatment Health Maintenance [...] 01/13/2026 01/13/2025 Depression Screening 01/14/2026 01/14/2025, 01/15/20 DTaP/Tdap/Td Vaccines (2 - Td or Tdap) [...] 1 VIEW Routine 04/30/2025 3:00 PM EDT XR SHOULDER 2+ VIEWS RIGHT Routine 03/08/2025 7:52 PM EDT HIGH SENSITIVITY TROPONIN I Routine 03/08/2025 6:43 PM EDT BASIC METABOLIC PANEL Routine 03/08/2025 6:43 PM EDT CBC WITH AUTO DIFFERENTIAL Routine 03/08/2025 6:43 PM EDT OCT, RETINA - OD - RIGHT EYE Routine 02/20/2025 3:15 PM EDT Vitreomacular traction, right LIPID PANEL, STANDARD Routine 01/02/2023 2:51 PM EDT Essential hypertension Dyslipidemia from Last 3 Months or Most Recently Relevant to Health Maintenance Results * XR Ribs 3 Views Right with Chest 1 View (04/30/2025 3:00 PM EDT) Anatomical Region Laterality Modality Radiographic Liss ging 04/30/2025 3:00 PM EDT Narrative 04/30/2025 3:29 PM EDT [place] [address] XRay Report Signed Patient: Carolin Avila MR#: [id number] : 1945 Acct:[id number] Age/Sex: 80 / F ADM Date: 04/30/25 Loc: CHOL[facility] Attending Dr: Jerry Mcmanus MD Ordering Physician: Jerry Mcmanus MD Date of Service: 04/30/25 Procedure(s): XR ribs RT min 3V w CXR1V Accession Number(s): [id number] cc: Sara North; Jerry Mcmanus MD Reason [...] 04/30/25 1526 DD/ 1500 TD/TT: 04/30/25 1507 Parts Advisor: Procedure Note Donotuseinterpreter, Image - 04/30/2025 [place] [address] XRay Report Signed Patient: Rohtih Avila#: [id number] : 5Acct:[id number] Age/Sex: 80 / FADM Date: 04/30/25 Loc: HO.XRAY Attending Dr: Jerry Mcmanus MD Ordering Physician: Jerry Mcmanus MD Date of Service: 04/30/25 Procedure(s): XR ribs RT min 3V w CXR1V Accession Number(s): [id number] cc: Sara North; Jerry Mcmanus MD Reason [...] 04/30/25 1526 DD/ 1500 TD/TT: 04/30/25 1507 Parts Advisor: Jerry Mcmanus MD IMG XR PROCEDURES Edited Result - Final * XR Shoulder 2+ Views Right (03/08/2025 7:52 PM EDT) Anatomical Region Laterality Modality Upper Extremities, Shoulder Right Radi ographic Imaging 03/08/2025 7:52 PM EDT Narrative 03/08/2025 7:53 PM EDT [address] [address] XRay Report Signed Patient: Carolin Avila MR#: [id number] : 1945 Acct:[id number] Age/Sex: 79 / F ADM Date: 03/08/25 Loc: HO.ED Attending Dr: Ordering Physician: Shannon Vazquez Date of Service: 03/08/25 Procedure(s): XR shoulder RT min 2V Accession Number(s): [id number] cc: Sara North; Shannon Vazquez CLINICAL HISTORY: [...] in OV> 03/08/251952 DD/ 51 TD/TT: 03/08/251951 Parts Advisor: Procedure Note Donotmarco ainterpreter, Image - 03/08/[address] [address] XRay Report Signed Patient: Rohith Avila#: [id number] : 5Acct:[id number] Age/Sex: 79 / FADM Date: 03/08/25 Loc: HO.ED Attending Dr: Ordering Physician: Shannon Vazquez Date of Service: 03/08/25 Procedure(s): XR shoulder RT min 2V Accession Number(s): [id number] cc: Sara North; Shannon Vazquez CLINICAL HISTORY: [...] in OV> 03/08/251952 DD/ 51 TD/TT: 03/08/251951 Parts Advisor: [facility] External Provider IMG XR PROCEDURES Edited Result - Final * High Sensitivity Troponin I (03/08/2025 6:43 PM EDT) TROPONIN I HIGH SENSITIVITY <2.7 <3.5 - 17.0 ng/L [facility] Comment:The Green high sens itivity Troponin-I results should beused in conjunction with other diagnostic information suchas ECG, clinical observations and information, and patientsymptoms to aid in the diagnosis of [place]. 03/08/2025 6:43 PM EDT 03/08/2025 6:55 PM EDT Generic External Data Provider LAB BLOOD ORDERAB LES Final Result [facility] [address] [place] [phone] * (ABNORMAL) CBC auto differential (03/08/2025 6:43 PM EDT) White Blood Count 5.6 4.8 - 10.8 X10*3/uL [facility] Red Blood Count 3.64(L) 4.20 - 5.50 X10*6/uL [facility] Hemoglobin 10.4(L) 12.0 - 16.0 g/dl [facility] Hematocrit 29.2(L) 37.0 - 47.0 % [facility] Mean Corpuscular Volume 80.2 80.0 - 98.0 fL [facility] Mean Corpuscular Hemoglobin 28.6 27.0 - 33.0 pg [facility] Mean Corpuscular HGB Conc 35.6(H) 31.0 - 35.0 g/dl [facility] Red Cell Distribution Width 12.0 11.0 - 16.0 % [facility] Platelet Count 244 160 - 400 X10*3/uL [facility] Mean Platelet Volume 10.5 9.4 - 12.3 fL [facility] Neutrophils Percent Auto 68.5 45 - 73 % [facility] Imm Gran Pct Auto 0.2 0.0 - 0.4 % [facility] Lymphocytes Percent Auto 20.6 20 - 40 % [facility] Monocytes Percent Auto 9.8 2 - 11 % [facility] Eosinophils Percent Auto 0.4 0 - 4 % [facility] Basophils Percent Auto 0.5 0 - 2 % [facility] NRBC Pct Auto 0.0 0.0 - 0.2 /100WBC [facility] Neutrophils Absolute Auto 3.9 2.0 - 8.3 x10*3/uL [facility] Imm Gran Abs Auto 0.01 0.00 - 0.03 X10*3/uL [facility] Lymphocytes Absolute Auto 1.2 1.2 - 4.9 X10*3/uL [facility] Monocytes Absolute Auto 0.6 0.1 - 1.2 X10*3/uL [facility] Eosinophils Absolute Auto 0.0 0.0 - 0.4 X10*3/uL [facility] Basophils Absolute Auto 0.0 0.0 - 0.2 X10*3/uL [facility] NRBC Abs Auto 0.000 0.0 - 0.012 X10*3/uL [facility] 03/08/2025 6:43 PM EDT 03/08/2025 6:46 PM EDT us Generic External Data Provider LAB BLOOD ORDERAB LES Final Result [facility] [address] [place] [address] [phone] * (ABNORMAL) Basic Metabolic Panel (03/08/2025 6:43 PM EDT) Sodium 139 135 - 145 mmol/L [facility] Potassium 4.1 3.3 - 5.1 mmol/L [facility] Chloride 106 96 - 108 mmol/L [facility] Carbon Dioxide 23 22 - 29 mmol/L [facility] Anion Gap 14 12 - 20 [facility] Urea Nitrogen (BUN) 27(H) 9 - 16 mg/dL [facility] Creatinine, Serum 1.08 0.5 - 1.4 mg/dL [facility] Creatinine Clr Calc Pharmacy 38.2 [facility] Comment:Provided height and weight: 160.02 cm,64.6 kg.eGFR (calculated from the MDRD study equation) and eCrCl(calculated from the Cockcroft-Gault equation) are based ondifferent parameters and may not yield comparable results.If eCrCl result is absurd, please check patient'sheight/weight. Estimated Glomerular Filt Rate 49 [facility] Comment:Chronic Kidney Disea se: Estimated GFR < 60 mL/min/1.61k3Vnflsn Kidney Disease: Estimated GFR < 15 mL/min/1.73m2 Glucose 103 60 - 115 mg/dL [facility] Calcium 9.7 8.4 - 10.2 mg/dL [facility] 03/08/2025 6:43 PM EDT 03/08/2025 6:46 PM EDT us Generic External Data Provider LAB BLOOD ORDERAB LES Final Result [facility] [address] [place] [address] [phone] * OCT, Retina - OD - Right Eye (02/20/2025 3:15 PM EDT) Narrative Haylee Rucekr, OD - 02/21/2025 10:49 AM EDT OCT [...] Rucker OD OPHTH TOMOGRAPHY Final Result * Lipid Panel, Standard (01/02/2023 2:51 PM EDT) [facility] Cholesterol, Total 132 <200 mg/dL [email or web address] HDL Cholesterol 57 > OR = 50 mg/dL [email or web address] Triglycerides 105 <150 mg/dL [email or web address] LDL Cholesterol 56 mg/dL (calc) [email or web address] Comment: Reference range: <100 Desirable range <100 mg/dL for primary prevention; <70 mg/dL for patients with CHD or diabetic patients with > or = 2 CHD risk factors. LDL-C is now calculated using the Kai calculation, which is a validated novel method providing better accuracy than the Friedewald equation in the estimation of LDL-C. Wu ELLIOTT et al. DARIEL. 2013;310(19): 4789-1734 (http://education.Mabaya.I Read Books/faq/NIW504) Chol/HDLC Ratio 2.3 <5.0 (calc) [facility] Non-HDL Cholesterol 75 <130 mg/dL (calc) [email or web address] Comment: For patients with diabetes plus 1 [...] BLOOD ORDERABLES Final Res ult [facility] [address], [place] [address] [facility] [address] [place] [address] from Last 3 Months or Most Recently Relevant to Health Maintenance Insurance MEDICARE [facility] STANDARD * Guarantor: Carolin Avila Account Type Relation to Patient Date of Phone Billing Address Personal/Family Self [address] [place] Care Teams Legal Administrator Relationship Specialty Start Date End Date Sara North MD [address] [place] [address] PCP - General Family Medicine 09/26/22 Jigna Holt OD [address] [place] [address] Optometry 10/24/24 [facility] Orthopedics 10/28/24
--- OUTSIDE RECORDS SUMMARY | 2025-04-30 18:14 | XMS_ITS | Encounter Summary ---
Author Organization [employer] Address [address] [place] [address] Care Team Providers Care Salesperson Flowers Name Role Phone Sara North MD Primary Care Provider [phone] Jonathon, Megan OD Unavailable [phone] Reason for Referral * Imaging (Routine) - Closed Specialty Diagnoses / Procedures Referred By Contac t Referred To Contact Radiology Diagnoses Right upper quadrant abdominal pain Procedures CT Abdomen Pelvis w/ Contrast Sara North MD [address] [place] [address] Phone: tel: fax: [address] Phone: tel: fax: Referral ID Status Reason Start Date Expiration Date Visits Re quested Visits Authorized [id number] Closed 10/30/2024 10/30/2025 1 1 Encounter Details Date Type Department Care Team (Late st Contact Info) Description 10/30/2024 Orders Only [facility] MEDICINE [address] [place], [place] [phone] Sara North MD [address] [place], [place] [phone] Right upper quadrant abdominal pain (Primary Dx) [...] Primary documented in this encounter Care Teams Salesperson Flowers Relationship Specialty Start Date End Date Sara North MD [address] [place] [address] PCP - General Family Medicine 09/26/22 Jigna Holt OD [address] [place] [address] Optometry 10/24/24 [facility] Orth[facility]ics 10/28/24 documented as of this encounter
--- OUTSIDE RECORDS SUMMARY | 2025-04-30 18:14 | XMS_ITS | Encounter Summary ---
Author Organization [email or web address] Address [address] [place] [address] Care Team Providers Care Rn Hedis Name Role Phone Sara North MD Primary Care Provider [phone] Jigna Holt OD Unavailable [phone] Encounter Details Date Type Department Care Team ([facility] st Contact Info) Description 04/24/[address] [facility] MED[facility]INE [address] [place], [place] [phone] Sara North MD [address] [place], [place] [phone] Social History Tobacco Use Types Packs/Day Years [...] on filedocumented in this encounter Care Teams Rn Hedis Relationship Specialty Start Date End Date Sara North MD [address] [place] [address] PCP - General Family Medicine 09/26/22 Jigna Holt OD [address] [place] [address] Optometry 10/24/24 [facility] Orthopedics 10/28/24 documented as of this encounter
--- OUTSIDE RECORDS SUMMARY | 2025-04-30 18:14 | XMS_ITS | Encounter Summary ---
Author Organization [employer] Address [address] [place] [address] Care Team Providers Care Rn Training Name Role Phone Sara North MD Primary Care Provider [phone] Jigna Holt OD Unavailable [phone] Reason for Visit * Reason Onset Date Comments Med Refill 10/10/2023 Encounter Details Date Type Department Care Team ([facility] st Contact Info) Description 10/10/2023 Telephone [facility] [address] [place], [place] [phone] Sara North MD [address] [place], [place] [phone] Med Refill Social History Tobacco Use Types [...] 25 MG tablet To be sent to: [id number] [place], [place] - [address] [facility] documented in this encounter Plan of Treatment Not on file documented as of this encounter Visit Diagnoses Not on filedocumented in this encounter Care Teams Rn Training Relationship Specialty Start Date End Date Sara North MD [address] [place], [place] [phone] PCP - General Family Medicine 09/26/22 Jigna Holt OD [address] [place], [place] [phone] Optometry 10/24/24 [facility] Orthopedics 10/28/24 documented as of this encounter
--- OUTSIDE RECORDS SUMMARY | 2025-04-30 18:14 | XMS_ITS | Encounter Summary ---
Author Organization [employer] Address [address] [place] [address] Care Team Providers Care Musical Performer Name Role Phone Sara North MD Primary Care Provider [phone] Jigna Holt OD Unavailable [phone] Encounter Details Date Type Department Care Team (Latest Contact Info) Description 04/28/2025 Travel Social History Tobacco Use Types Packs/Day Years [...] Diagnoses Not on filedocumented in this encounter Additional Health Concerns Assessment Noted Time PHQ-9 Depression Total Score: 8 01/15/20 25 10:25 AM EDT documented as of this encounter Care Teams Musical Performer Relationship Specialty Start Date End Date Sara North MD [address] [place] [address] PCP - General Family Medicine 09/26/22 Jigna Holt OD [address] [place] [address] Optometry 10/24/24 [facility] 10/28/24 documented as of this encounter
== END 2025-04-30 14:33 | disposition home or self-care (01) ==
LOC: HO.XRAY 14:32
PROVIDERS: PCP General Practice; Visit Provider Family Medicine
DX: R07.81 Pleurodynia (principal); M25.511 Pain in right shoulder; G89.29 Other chronic pain
CPT/HCPCS: 71101

== ENCOUNTER → 2025-04-30 14:37 | Outpatient (BNV) | payer MEDICARE, MEDICAID, SELFPAY | PROVIDERS: PCP General Practice; Visit Provider Radiology Diagnostic Radiology | DX: R07.89 Other chest pain (principal) | CPT/HCPCS: 71101 ==

== ENCOUNTER → 2025-06-05 18:08 | Outpatient (BNV) | payer MEDICARE, MEDICAID, SELFPAY | PROVIDERS: PCP General Practice; Visit Provider Radiology Diagnostic Ultrasound | DX: M19.011 Primary osteoarthritis, right shoulder (principal); M75.51 Bursitis of right shoulder | CPT/HCPCS: 73221 ==

== ENCOUNTER 2025-06-05 18:11 | Outpatient (REF) | payer MEDICARE, MEDICAID, SELFPAY ==
--- NOTE | ~2025-06-05 | MR_ITS ---
EXAMINATION: MR SHOULDER WITHOUT CONTRAST, RIGHT CLINICAL INFORMATION: Pain, limited range of motion. COMPARISON: X-rays 03/08/2025 TECHNIQUE: MRI of the shoulder without contrast was performed on a high-field scanner. FINDINGS: Motion artifact degrading images, limiting evaluation. ROTATOR CUFF: Moderate supraspinatus and infraspinatus tendinosis. Diyjliun-hvrp-dawek partial tear of the insertional conjoined fibers of the supraspinatus/infraspinatus measuring approximately 0.6 x 0.6 cm. Possible component of intrasubstance tearing in the proximal supraspinatus tendon. Teres minor is intact. Subscapularis tendon is intact. No muscle atrophy or fatty infiltration. BICEPS: Intact CORACOACROMIAL ARCH: The undersurface of the acromion is flat with no subacromial spur. Mild acromioclavicular arthritis. Mild subacromial subdeltoid bursitis. LABRUM/CAPSULE: No displaced labral tear is seen. GLENOHUMERAL JOINT/MARROW: No fracture. No aggressive marrow replacing lesion. Small effusion. MR/MR shoulder RT wo con IMPRESSION: * Moderate supraspinatus and infraspinatus tendinosis. 0.6 x 0.6 cm ugagawqw-obxy-cvwjz partial tear in the conjoined supraspinatus/infraspinatus fibers. Possible component of intrasubstance partial tearing in the proximal supraspinatus. * Mild acromioclavicular arthritis. * Mild subacromial subdeltoid bursitis. Electronically signed by: Cali Oliva MD 06/06/2025 07:49 AM EDT
== END 2025-06-05 18:12 | disposition home or self-care (01) ==
LOC: HO.MRI 18:11
PROVIDERS: PCP General Practice; Visit Provider General Practice
DX: M25.511 Pain in right shoulder (principal)
CPT/HCPCS: 73221

== ENCOUNTER 2025-06-11 14:51 | Outpatient (REF) | payer MEDICARE, MEDICAID, SELFPAY ==
--- OUTSIDE RECORDS SUMMARY | 2025-06-11 19:15 | XMS_ITS | Encounter Summary ---
Author Organization [employer] Address [address] [place] [address] Care Team Providers Care Repairer Helper Name Role Phone Sara North MD Primary Care Provider [phone] Jigna Holt OD Unavailable [phone] Reason for Visit * Reason Onset Date Comments Results 06/06/2025 Encounter Details Date Type Department Care Team ([facility] st Contact Info) Description 06/06/2025 Results Follow-Up [facility] MEDICINE [address] [place] [address] Sara North MD [address] [place] [address] MR Shoulder w/o Contrast Right Social History Tobacco Use Types Packs/Day Years [...] is your housing situation today? I have valeriehenrik evans 06/24/[address] you [...] encounter Miscellaneous Notes * Telephone Encounter - Monique Ramirez RN - 06/06/2025 1:05 PM EDT TC placed to patient [phone] via [employer] interpreters (Giovani #[id number]) in regards to below message. RN spoke to daughter Cheryle (on HIPAA) in regards to below message. Daughter verbalized understanding. Daughter to f/u PRN. ----- Message from Sara North MD sent at 06/06/2025 9:58 AM EDT ----- Please let patient know that her shoulder MRI showed multiple tears and she shold followup with orthopedic surgery as discussed previosuly ----- Message ----- From: Interface, Ris Results In Sent: 06/06/2025 7:52 AM EDT To: Sara North MD * Result Encounter Note - Sara North MD - 06/06/2025 9:58 AM EDT Please let patient know that her shoulder MRI showed multiple tears and she shold followup with orthopedic surgery as discussed previosuly documented in this encounter Plan of Treatment Upcoming Encounters Date Type Department Care Team (Late st Contact Info) Description 08/13/2025 3:00 PM EST Office Visit [facility] MEDICINE [address] [place] [address] Sara North MD [address] [place] [address] documented as of this encounter Visit Diagnoses Not on filedocumented in this encounter Additional Health Concerns Assessment Noted Time PHQ-9 Depression Total Score: 8 01/15/20 25 10:25 AM EDT documented as of this encounter Care Teams Repairer Helper Relationship Specialty Start Date End Date Sara North MD [address] [place] [address] [phone] PCP - General Family Medicine 09/26/22 Jigna Holt OD [address] [place] [address] [phone] Optometry 10/24/24 [facility] [place] 10/28/24 documented as of this encounter
--- OUTSIDE RECORDS SUMMARY | 2025-06-11 19:15 | XMS_ITS | Encounter Summary ---
Author Organization [employer] Address [address] [place] [address] Care Team Providers Care Manufacturing Intern Name Role Phone Sara North MD Primary Care Provider [phone] Jonathon, Megan OD Unavailable [phone] Reason for Referral * Imaging (Routine) - Closed Specialty Diagnoses / Procedures Referred By Contac t Referred To Contact Radiology Diagnoses Right upper quadrant abdominal pain Procedures CT Abdomen Pelvis w/ Contrast Sara North MD [address] [place] [address] Phone: tel: fax: [address] Phone: tel: fax: Referral ID Status Reason Start Date Expiration Date Visits Re quested Visits Authorized [id number] Closed 10/30/2024 10/30/2025 1 1 Encounter Details Date Type Department Care Team (Late st Contact Info) Description 10/30/2024 Orders Only [facility] MEDICINE [address] [place], [place] [phone] Sara North MD [address] [place], [place] [phone] Right upper quadrant abdominal pain (Primary Dx) [...] as of this encounter Plan of Treatment Upcoming Encounters Date Type Department Care Team (Late st Contact Info) Description 08/13/2025 3:00 PM EST Office Visit [facility] MEDICINE [address] [place] [address] Sara North MD [address] [place] [address] Scheduled Orders Name Type Priority Associated Diagnoses Orde r Schedule CT Abdomen Pelvis w/ Contrast Imaging Routine Right upper quadrant abdominal pain Expected: 10/30/2024, Expires: 10/30/2025 documented as of this encounter Visit Diagnoses Diagnosis Right upper quadrant abdominal pain- Primary documented in this encounter Care Teams Manufacturing Intern Relationship Specialty Start Date End Date Sara North MD [address] [place], [place] [phone] PCP - General Family Medicine 09/26/22 Jigna Holt OD [address] [place], [place] [phone] Optometry 10/24/24 [facility] Orthopedics 10/28/24 documented as of this encounter
--- OUTSIDE RECORDS SUMMARY | 2025-06-11 19:15 | XMS_ITS | Encounter Summary ---
Author Organization [employer] Address [address] [facility] 7t [place] [address] Care Team Providers Care Retail Area Manager Name Role Phone Sara North MD Primary Care Provider [phone] Jonathon, Megan OD Unavailable [phone] Reason for Referral * Consultation (Routine) - Closed Specialty Diagnoses / Procedures Referred By Contac t Referred To Contact Otolaryngology Diagnoses Flat tympanogram of left ear Sara North MD [address] [place] [address] Phone: tel: fax: [facility] [address] [place] [address] Phone: tel: fax: Referral ID Status Reason Start Date Expiration Date V isits Requested Visits Authorized [id number] Closed Specialty Services Required 05/16/2025 05/16/2026 1 1 Encounter Details Date Type Department Care Team (Late st Contact Info) Description 05/16/2025 Orders Only [facility] MEDICINE [address] [place], [place] [phone] Sara North MD [address] [place], [place] [phone] Flat tympanogram of left ear (Primary Dx) Social History Tobacco Use Types [...] Description 08/13/2025 3:00 PM EST Office Visit [facility] [address] [place] [address] Sara North MD [address] [place] [address] Scheduled Referrals Name Type Priority Associated Diagnoses Orde r Schedule Referral to ENT Outpatient Referral Routine Flat tympanogram of left ear Expected: 05/16/2025 (Approximate), Expires: 05/16/2026 documented as of this encounter Visit Diagnoses Diagnosis Flat tympanogram of left ear- Primary documented in this encounter Additional Health Concerns Assessment Noted Time PHQ-9 Depression Total Score: 8 01/15/20 25 10:25 AM EDT documented as of this encounter Care Teams Retail Area Manager Relationship Specialty Start Date End Date Sara North MD [address] [place] [address] PCP - General Family Medicine 09/26/22 Jigna Holt OD [address] [place] [address] Optometry 10/24/24 [facility] [place] Orthopedics 10/28/24 documented as of this encounter
--- OUTSIDE RECORDS SUMMARY | 2025-06-11 19:15 | XMS_ITS | Encounter Summary ---
Author Organization [employer] Address [address] [facility] [address] 7t [place] [address] Care Team Providers Care Filter Operator Name Role Phone Sara North MD Primary Care Provider [phone] Jigna Holt OD Unavailable [phone] Reason for Visit * Reason Onset Date Comments Med Refill 10/10/2023 Encounter Details Date Type Department Care Team ([facility] st Contact Info) Description 10/10/2023 Telephone [facility] MEDICINE [address] [place], [place] [phone] Sara North MD [address] [place], [place] [phone] Med Refill Social History Tobacco Use Types [...] 25 MG tablet To be sent to: [id number] [place], [place] - [address] [facility] documented in this encounter Plan of Treatment Upcoming Encounters Date Type Department Care Team (Late st Contact Info) Description 08/13/2025 3:00 PM EST Office Visit [facility] MEDICINE [address] [place] [address] Sara North MD [address] [place] [address] documented as of this encounter Visit Diagnoses Not on filedocumented in this encounter Care Teams Filter Operator Relationship Specialty Start Date End Date Sara North MD [address] [place] [address] PCP - General Family Medicine 09/26/22 Jigna Holt OD [address] [place] [address] Optometry 10/24/24 [facility] [place] Orthopedics 10/28/24 documented as of this encounter
--- OUTSIDE RECORDS SUMMARY | 2025-06-11 19:15 | XMS_ITS | Encounter Summary ---
Author Organization [employer] Address [address] [facility] [address] 7[address] [place] [address] Care Team Providers Care Global Climate Change Researcher Name Role Phone Sara North MD Primary Care Provider [phone] Jigna Holt OD Unavailable [phone] Encounter Details Date Type Department Care Team ([facility] st Contact Info) Description 04/24/2024 Orders Only [facility] MEDICINE [address] [place], [place] [phone] Sara North MD [address] [place], [place] [phone] Social History Tobacco Use Types Packs/Day Years [...] Description 08/13/2025 3:00 PM EST Office Visit [facility] MEDICINE [address] [place], [place] [phone] Sara North MD [address] [place] [address] documented as of this encounter Visit Diagnoses Not on filedocumented in this encounter Care Teams Global Climate Change Researcher Relationship Specialty Start Date End Date Sara North MD [address] [place] [phone] PCP - General Family Medicine 09/26/22 Jigna Holt OD [address] [place], [place] [phone] Optometry 10/24/24 [facility] Orthopedics 10/28/24 documented as of this encounter
--- OUTSIDE RECORDS SUMMARY | 2025-06-11 19:15 | XMS_ITS | Encounter Summary ---
Author Organization [employer] Address [address] [facility] [address] 7t [place] [address] Care Team Providers Care Zoogler Name Role Phone Sara North MD Primary Care Provider [phone] Jigna Holt OD Unavailable [phone] Reason for Visit * Reason Onset Date Comments Nurse Triage 06/09/2025 Encounter Details Date Type Department Care Team ([facility] st Contact Info) Description 06/09/2025 Telephone [facility] MEDICINE 230 [place] [address] Sara North MD [address] [place], [place] [phone] Nurse Triage Social History Tobacco Use Types Packs/Day Years [...] your housing situation today? I have valerie cristina 06/24/[address] you li [...] encounter Miscellaneous Notes * Telephone Encounter - Maricarmen Pichardo RN - 06/09/2025 4:11 PM EDT TC to pt. Pt states that having shoulder pain still and now has completed MRI and wants to know next steps. Pt is requesting medication for pain stating pain in R should is causing difficulty sleeping. Advised will send to provider to review and recommend. Pt states has not started physical therapyyet but is scheduled to start 06/11/25. * Telephone Encounter - Elizabeth Miramontes - 06/09/2025 3:52 PM EDT Tc from pt daughter requesting a call back Contact at [phone] (citizen of [place]) * Telephone Encounter - Maricarmen Pichardo RN - 06/09/2025 3:45 PM EDT TC to pt/pt daughter phone number with S lacing operator. No answer. left instructing pt to return call to office. * Telephone Encounter - Elizabeth Miramontes - 06/09/2025 2:36 PM EDT Symptoms: Shoulder Pain - Not From Injury, Sleeping Difficulty Outcome: Schedule an urgent appointment (within 1 hour) or talk to a nurse or provider soon Reason: Severe pain now The caller accepted this outcome. Contact pt at [phone] (citizen of [place]) documented in this encounter Plan of Treatment Upcoming Encounters Date Type Department Care Team (Late st Contact Info) Description 08/13/2025 3:00 PM EST Office Visit [facility] MEDICINE [address] [place] [address] Sara North MD [address] [place] [address] documented as of this encounter Visit Diagnoses Not on filedocumented in this encounter Additional Health Concerns Assessment Noted Time PHQ-9 Depression Total Score: 8 01/15/20 25 10:25 AM EDT documented as of this encounter Care Teams Zoogler Relationship Specialty Start Date End Date Sara North MD [address] [place] [phone] PCP - General Family Medicine 09/26/22 Jigna Holt OD [address] [place] [address] Optometry 10/24/24 [facility] Orthopedics 10/28/24 documented as of this encounter
--- OUTSIDE RECORDS SUMMARY | 2025-06-11 19:15 | XMS_ITS | Clinical Summary ---
Author Organization [employer] Address [address] [facility] [address] 7[address] [place] [address] Care Team Providers Care Garment Steamer Name Role Phone Sara North MD Primary Care Provider [phone] Jigna Holt OD Unavailable Allergies No known active allergies Medications * This document contains information received from the source organization and may not represent a complete record from that organization. fluticasone (Flonase) 50 MCG/ACT nasal sprayIndications:R etracted tympanic membrane, bilateral SPRAY 1-2 PUFFS INTO EACH NOSTRIL EVERY MORNING. SHAKE GENTLY BEFORE USE AND CLEAN AFTERWARDS 16 g 6 11/28/19 24 Active ferrous sulfate 324 (65 Fe) MG EC tablet Take 1 tablet (324 mg) by mouth with breakfast. Do not crush, chew, or split. 90 tablet 3 04/24/20 24 Active naproxen (Naprosyn) 500 MG tabletIndications: Chronic pain of both knees,Acute right-sided low back pain with right-sided sciatica TAKE 1 TABLET BY MOUTH TWICE DAILY WITH FOOD FOR UP TO 1 WEEK THEN NEEDED 60 tablet 11/13/19 25 Active cholecalciferol (Vitamin D-3) 50 MCG (2000 UT) tablet Take 1 tablet (50 mcg) by mouth Once per day. 90 tablet 3 01/16/20 25 Active aspirin (Aspirin Low Dose) 81 MG EC tabletIndications: Hyperlipidemia, unspecified hyperlipidemia type Take 1 tablet (81 mg) by mouth Once per day. 90 tablet 3 01/16/20 25 Active Acetaminophen Extra Strength 500 MG tablet Take 1 tablet (500 mg) by mouth if needed in the morning, at noon, in the evening, and at bedtime (pain). 60 tablet 3 01/16/20 25 Active Emollient ([employer] Moisturizing) cream Apply 1 Application. topically if needed (dry skin). 340 g 3 01/16/20 25 Active Diclofenac Sodium 1 % gel APPLY 2 GRAMS TOPICALLY FOUR TIMES DAILY TO AFFECTED AREAS 100 g 3 01/16/20 25 Active loratadine (Claritin) 10 MG tabletIndications: Seasonal allergies Take 1 tablet (10 mg) by mouth if needed each day for allergies. 90 tablet 01/16/20 25 026 Active losartan-hydroCHLO ROthiazide (Hyzaar) 100-12.5 MG tabletIndications: Essential hypertension Take 1 tablet by mouth Once per day. 90 tablet 3 01/16/20 25 Active magnesium, as gluconate, (Mag-G) 500 (27 Mg) MG tabletIndications: Muscle cramp, nocturnal TAKE 1 TABLET BY MOUTH EVERY EVENING FOR CRAMPS 90 tablet 3 01/16/20 25 Active metoprolol tartrate (Lopressor) 25 MG tabletIndications: Essential hypertension Take 1 tablet (25 mg) by mouth Once per day. 90 tablet 01/16/20 25 Active Multiple Vitamin (multivitamin) tabletIndications: Osteopenia, unspecified location Take 1 tablet by mouth Once per day. 90 tablet 3 01/16/20 25 Active rosuvastatin (Crestor) 20 MG tabletIndications: Hyperlipidemia, unspecified hyperlipidemia type Take 1 tablet (20 mg) by mouth Once per day. 90 tablet 3 01/16/20 25 Active ketorolac (Toradol) 10 MG tablet Take 1 tablet by mouth if needed in the morning and at bedtime for pain. 03/09/20 25 Active cyclobenzaprine (Flexeril) 5 MG tablet TAKE 1 TABLET BY MOUTH THREE TIMES DAILY NEEDED FOR MUSCLE SPASM. MAY CAUSE DROWSINESS / DIZZINESS 03/09/20 25 Active LORazepam (Ativan) 0.5 MG tablet Take 1 tablet (0.5 mg) by mouth Once daily as needed for anxiety (20 minutes before MRI) for up to 1 day. 1 tablet 05/09/20 25 Active predniSONE (Deltasone) 20 MG tablet Take 1 tablet (20 mg) by mouth Once per day for 7 days. 7 tablet 05/09/20 25 025 Active Problems Problem Noted Date Diagnosed Date [...] EDT): She has not heard yet for HEALTH SCIENCE SPECIALIST evaluation services, will check in with medical records to see if they know which agency she was referred to, and to give them a call to schedule in home evaluation Assessment & Plan (08/18/2023 8:33 AM EST): Recommend HEALTH SCIENCE SPECIALIST for bathing, shopping, cooking and dressing needs Assessment & Plan (07/12/2023 4:45 PM EST): Recommend HEALTH SCIENCE SPECIALIST for bathing and clothing needs Hypercalcemia 05/26/2023 [...] consider TKA, last saw Dr Steve at [facility] 05/2022, will re-refer for this followup discussion [...] Encounters Date Type Department Care Team Description 06/09/[address] [address] Sara Notrh MD Nurse Triage 06/06/2025 Results Follow-Up [address] [address] Sara North MD MR Shoulder w/o Contrast Right 05/29/[address] [address] Sara North MD 05/16/2025 Orders Only [address] [address] Sara North MD Flat tympanogram of left ear (Primary Dx) 05/09/2025 3:15 PM EDT Office Visit [address] [address] Sara North MD Acute pain of right shoulder (Primary Dx) 05/08/2025 Travel 05/05/[address] [address] Sara North MD Nurse Triage 05/01/2025 Results Follow-Up [facility] [address] [place] [address] Jerry Mcmanus MD XR Ribs 3 Views Right with Chest 1 View 04/28/2025 5:40 PM EDT Office Visit [facility] [address] [place] [address] Jerry Mcmanus MD Chronic right shoulder pain (Primary Dx); Rib pain on right side 04/28/2025 Travel from Last 3 Months Immunizations Immunization Administration [...] Sign Reading Time Taken Comments Blood Pressure 100/60 05/09/2025 3:49 PM EDT Pulse 62 05/09/2025 3:49 PM EDT Temperature 36.4 C (97.6 F) 05/09/2025 3:49 PM EDT Respiratory Rate 19 05/09/2025 3:49 PM EDT Oxygen Saturation 100% 10/14/2024 3:53 PM EST Inhaled Oxygen Concentration - - Weight 65 kg (143 lb 6.4 oz) 05/09/2025 3:49 PM EDT Height 149.9 cm (4' 11 ) 05/09/2025 3:49 PM EDT Body Mass Index 28.96 05/09/2025 3:49 PM EDT Plan of Treatment Upcoming Encounters Date Type Department Care Team (Late st Contact Info) Description 08/13/2025 3:00 PM EST Office Visit [facility] MEDICINE [address] [place] [address] Sara North MD [address] [place] [address] Health Maintenance Due Date Last Done Comments RSV Patients and Patients Aged 60 years or older (1 - 1-dose 75+ series) 2020 COVID-19 Vaccine ( season) 2025 08/17/2024, 01/22/2022, 05/11/2021, Additional history exists Influenza Vaccine (#1) 2025 , 05/12/2023, 06/27/2022, Additional history exists Alcohol/Substance Use Screening 10/28/2025 10/28/2024 SDOH Screening 10/28/2025 10/28/2024 Depression Screening 01/14/2026 01/14/2025, 01/15/20 Tobacco Screening 05/09/2026 05/09/2025 DTaP/Tdap/Td Vaccines (2 - Td or Tdap) [...] Procedure Name Priority Date/Time Associated Diagnosis Comments MR SHOULDER WO CONTRAST RIGHT Routine 06/05/2025 6:25 PM EDT Acute pain of right shoulder XR RIBS 3 VIEWS RIGHT W CHEST 1 VIEW Routine 04/30/2025 3:00 PM EDT LIPID PANEL, STANDARD Routine 01/02/2023 2:51 PM EDT Essential hypertension Dyslipidemia from Last 3 Months or Most Recently Relevant to Health Maintenance Results * MR Shoulder w/o Contrast Right (06/05/2025 6:25 PM EDT) Anatomical Region Laterality Modality Upper Extremities, Shoulder Right Magn etic Resonance 06/05/2025 6:25 PM EDT Narrative 06/06/2025 7:51 AM EDT [address] [address] Magnetic Resonance Report Signed Patient: Carolin Avila MR#: [id number] : 1945 Acct:[id number] Age/Sex: 80 / F ADM Date: 06/05/25 Loc: HO.MRI Attending Dr: Sara North MD Ordering Physician: Sara North Date of Service: 06/05/25 Procedure(s): MR shoulder RT wo con Accession Number(s): [id number] cc: Sara North Reason for Exam: pain and limited range of motion EXAMINATION: MR SHOULDER WITHOUT CONTRAST, RIGHT CLINICAL INFORMATION: Pain, limited range of motion. COMPARISON: X-rays 03/08/2025 TECHNIQUE: MRI of the shoulder without contrast was performed on a high-field scanner. FINDINGS: Motion artifact degrading images, limiting evaluation. ROTATOR CUFF: Moderate supraspinatus and infraspinatus tendinosis. Ccnmqwcw-mepx-lbtfn partial tear of the insertional conjoined fibers of the supraspinatus/infraspinatus measuring approximately 0.6 x 0.6 cm. Possible component of intrasubstance tearing in the proximal supraspinatus tendon. Teres minor is intact. Subscapularis tendon is intact. No muscle atrophy or fatty infiltration. BICEPS: Intact CORACOACROMIAL ARCH: The undersurface of the acromion is flat with no subacromial spur. Mild acromioclavicular arthritis. Mild subacromial subdeltoid bursitis. LABRUM/CAPSULE: No displaced labral tear is seen. GLENOHUMERAL JOINT/MARROW: No fracture. No aggressive marrow replacing lesion. Small effusion. MR/MR shoulder RT wo con IMPRESSION: * Moderate supraspinatus and infraspinatus tendinosis. 0.6 x 0.6 cm dvsekrnx-vnjy-cdwrt partial tear in the conjoined supraspinatus/infraspinatus fibers. Possible component of intrasubstance partial tearing in the proximal supraspinatus. * Mild acromioclavicular arthritis. * Mild subacromial subdeltoid bursitis. Electronically signed by: Cali Oliva MD 06/06/2025 07:49 AM EDT Dictated By: Cali Oliva MD Signed By: <Electronically signed by Cali Oliva MD in OV> 06/06/25 0749 DD/ 1825 TD/TT: 06/05/25 1850 Granulating Blender: Procedure Note Donotuseinterpreter, Image - 06/06/2025 [place] [address] Magnetic Resonance Report Signed Patient: Rohith Avila#: [id number] : 5Acct:[id number] Age/Sex: 80 / FADM Date: 06/05/25 Loc: HO.MRI Attending Dr: Sara North MD Ordering Physician: Sara North Date of Service: 06/05/25 Procedure(s): MR shoulder RT wo con Accession Number(s): [id number] cc: Sara North Reason for Exam: pain and limited range of motion EXAMINATION: MR SHOULDER WITHOUT CONTRAST, RIGHT CLINICAL INFORMATION: Pain, limited range of motion. COMPARISON: X-rays 03/08/2025 TECHNIQUE: MRI of the shoulder without contrast was performed on a high-field scanner. FINDINGS: Motion artifact degrading images, limiting evaluation. ROTATOR CUFF: Moderate supraspinatus and infraspinatus tendinosis. Dywdgyyt-thwq-utdga partial tear of the insertional conjoined fibers of the supraspinatus/infraspinatus measuring approximately 0.6 x 0.6 cm. Possible component of intrasubstance tearing in the proximal supraspinatus tendon. Teres minor is intact. Subscapularis tendon is intact. No muscle atrophy or fatty infiltration. BICEPS: Intact CORACOACROMIAL ARCH: The undersurface of the acromion is flat with no subacromial spur. Mild acromioclavicular arthritis. Mild subacromial subdeltoid bursitis. LABRUM/CAPSULE: No displaced labral tear is seen. GLENOHUMERAL JOINT/MARROW: No fracture. No aggressive marrow replacing lesion. Small effusion. MR/MR shoulder RT wo con IMPRESSION: * Moderate supraspinatus and infraspinatus tendinosis. 0.6 x 0.6 cm rvqcybxv-hlbs-whgxa partial tear in the conjoined supraspinatus/infraspinatus fibers. Possible component of intrasubstance partial tearing in the proximal supraspinatus. * Mild acromioclavicular arthritis. * Mild subacromial subdeltoid bursitis. Electronically signed by: Cali Oliva MD 06/06/2025 07:49 AM EDT RP Dictated By: Cali Oliva MD Signed By: <Electronically signed by Cali Oliva MD in OV> 06/06/25 0749 DD/ 24 TD/TT: 06/05/25 185 Granulating Blender: HB us Sara North MD IMG MRI PROCEDURES Final Resul t * XR Ribs 3 Views Right with Chest 1 View (04/30/2025 3:00 PM EDT) Anatomical Region Laterality Modality Radiographic Liss ging 04/30/2025 3:00 PM EDT Narrative 04/30/2025 3:29 PM EDT [place] [address] XRay Report Signed Patient: Carolin Avila MR#: [id number] : 1945 Acct:[id number] Age/Sex: 80 / F ADM Date: 04/30/25 Loc: HO.JOHNAY Attending Dr: Jerry Mcmanus MD Ordering Physician: Jerry Mcmanus MD Date of Service: 04/30/25 Procedure(s): XR ribs RT min 3V w CXR1V Accession Number(s): [id number] cc: Sara North; Jerry Mcmanus MD Reason [...] rib fractures seen. Electronically signed by: Napoleon Mutlani MD 04/30/2025 03:26 PM EDT RP Dictated By: Napoleon Multani MD Signed By: <Electronically signed by Napoleon Multani MD in OV> 04/30/25 1526 DD/ 1500 TD/TT: 04/30/25 1507 Granulating Blender: Procedure Note Donotuseinterpreter, Image - 04/30/2025 [place] [address] XRay Report Signed Patient: Rohith Avila#: [id number] : 5Acct:[id number] Age/Sex: 80 / FADM Date: 04/30/25 Loc: ADALJerricaMUKUND Attending Dr: Jerry Mcmanus MD Ordering Physician: Jerry Mcmanus MD Date of Service: 04/30/25 Procedure(s): XR ribs RT min 3V w CXR1V Accession Number(s): [id number] cc: Sara North; Jerry Mcmanus MD Reason [...] 04/30/25 1526 DD/ 1500 TD/TT: 04/30/25 1507 Granulating Blender: Jerry Mcmanus MD IMG XR PROCEDURES Edited Result - Final * Lipid Panel, Standard (01/02/2023 2:51 PM EDT) [facility] Signature Cholesterol, Total 132 <200 mg/dL [facility] HDL Cholesterol 57 > OR = 50 mg/dL [facility] Triglycerides 105 <150 mg/dL [facility] LDL Cholesterol 56 mg/dL (calc) [facility] Comment: Reference range: <100 Desirable range <100 mg/dL for primary prevention; <70 mg/dL for patients with CHD or diabetic patients with > or = 2 CHD risk factors. LDL-C is now calculated using the Wu-Teresa calculation, which is a validated novel method providing better accuracy than the Friedewald equation in the estimation of LDL-C. Wu SS et al. DARIEL. 2013;310(19): 0881-6028 (http://education.Agency for Student [employer] Research/faq/OGH712) Chol/HDLC Ratio 2.3 <5.0 (calc) [facility] Non-HDL Cholesterol 75 <130 mg/dL (calc) [facility] Comment: For patients with diabetes plus 1 major ASCVD risk factor, treating to a non-HDL-C goal of <100 mg/dL (LDL-C of <70 mg/dL) is considered a therapeutic option. Blood Venous blood specimen / Unknown 01/02/2023 2:51 PM EDT 01/02/2023 2:52 PM EDT Narrative [facility] - 01/03/2023 12:27 PM EDT FASTING:UNKNOWN COLLECTION KIT GIVEN TO PATIENT. PATIENT ADVISED TO RETURN. FASTING: UNKNOWN Sara North MD LAB BLOOD ORDERABLES Final Res ult [facility] [address], [place] [address] [facility] [address] [place] [address] from Last 3 Months or Most Recently Relevant to Health Maintenance Insurance MEDICARE Member Subscriber Plan / Payer (Ef fective 2022-Present) Name:Carolin Avila Member ID:[id number] Relation to Subscriber:Self Name:Carolin Avila Subscriber ID:[id number] Payer ID:STATE Group ID:Not on file Type:Medicare Address: [facility] [address] [address] [facility] STANDARD * Guarantor: Carolin Avila Account Type Relation to Patient Date of Phone Billing Address Personal/Family Self [address] [place] Care Teams Garment Steamer Relationship Specialty Start Date End Date Sara North MD [address] [place] [address] PCP - General Family Medicine 09/26/22 Jigna Holt OD [address] [place] [address] Optometry 10/24/24 [facility] Orthopedics 10/28/24
== END 2025-06-11 14:52 | disposition home or self-care (01) ==
LOC: HO.MAMMO 14:51
PROVIDERS: PCP General Practice; Visit Provider General Practice
DX: Z12.31 Encounter for screening mammogram for malignant neoplasm of breast (principal)
CPT/HCPCS: 77063; 77067

== ENCOUNTER → 2025-06-11 15:30 | Outpatient (BNV) | payer MEDICARE, MEDICAID, SELFPAY | PROVIDERS: PCP General Practice; Visit Provider Radiology Body Imaging | DX: Z12.31 Encounter for screening mammogram for malignant neoplasm of breast (principal) | CPT/HCPCS: 77063; 77067 ==

== ENCOUNTER 2025-06-19 14:55 | Outpatient (AMB) | payer MEDICARE, MEDICAID, SELFPAY ==
--- NOTE | 2025-06-19 15:02 | A.OFFVIS_ITS ---
Intake Visit Reasons: New prob- Right shoulder pain Intake Note: Carolin is a 80 year old right hand dominant female who presents today for a evaluation of her right shoulder pain. Patient reports ongoing pain since March. She states that her pain is on the lateral aspect of the shoulder goes down to her elbow and it moves to her back. Patient notices that her pain is worse when she is lifting her arm, performing over head reaching and when she is going to chart picker something. IMPRESSION: * Moderate supraspinatus and infraspinatus tendinosis. 0.6 x 0.6 cm [id number] partial tear in the conjoined supraspinatus/infraspinatus fibers. Possible component of intrasubstance partial tearing in the proximal supraspinatus. * Mild acromioclavicular arthritis. * Mild subacromial subdeltoid bursitis. Corporate Specialist Services: Corporate Specialist Present ([phone]) Accompanied by: Grand Child Allergies No Known Allergies Allergy (Verified 06/19/25 15:05) HPI HPI New prob- Right shoulder pain: Details: Ms. Naseem Tijerina is an 80-year-old female who presents to the office today for evaluation of right shoulder pain for the past 3 months. She denies any injury or trauma to the area. She reports that she had an MRI that was performed in May. She has been to her PCP at the [facility] as well as the emergency department for this right shoulder pain. She was given Tylenol but this gave her only minimal relief. She is looking for additional treatment options. [facility] Medical History Osteopenia Osteoarthritis Anemia Elevated cholesterol HTN (hypertension) Surgical History (Updated 08/16/23 @ 12:50 by Cassie Lester RN) History of cholecystectomy Family History Mother Cancer Family/Other Colon cancer Social History Patient Tobacco Use Status: Never used Tobacco Review of Systems Const All systems reviewed & are unremarkable except as noted in HPI and below Physical Exam Const General: cooperative, healthy appearing and no acute distress Resp Effort & Inspection: normal respiratory effort and able to speak in complete sentences Extrem Other: Right shoulder: Normal to inspection. No ecchymosis, erythema, or edema. 90 degrees of forward flexion and abduction. Able to reach back pocket. NVI. Psych Appearance: grossly normal Mental Status: mental status grossly normal Attitude: cooperative Office Procedures AMB Joint Injection/Aspiration Joint Injection/Aspiration Primary Site: right shoulder Prep: site was prepped using aseptic technique, ethochloride spray was applied and injection warnings given Injected: 40 mg of, with 3 mL of, 1% plain lidocaine, 0.25% bupivacaine, in the subcromial space and decadron Approach Used: posterolateral Procedure: The patient tolerated the procedure well, but had some pain with the injection and there was some relief with the local anesthesia Coding - Large joint Procedure code (CPT) selection complete Assessment & Plan Assessment & Plan (1) Rotator cuff tear arthropathy of right shoulder: Code(s): M75.101 - Unspecified rotator cuff tear or rupture of right shoulder, not specified as traumatic; M12.811 - Other specific arthropathies, not elsewhere classified, right shoulder Category: Medical Plan The patient was offered a cortisone injection in the right shoulder. The patient was explained the risks, benefits, and alternatives to receiving this injection. After receiving consent for the injection, the patient had the procedure done while in the office today. The patient tolerated the procedure well with no complications. Follow-up will be PRN, or sooner if needed MRI obtained on 06/05/2025: IMPRESSION: * Moderate supraspinatus and infraspinatus tendinosis. 0.6 x 0.6 cm yoalcani-yzyi-ocewb partial tear in the conjoined supraspinatus/infraspinatus fibers. Possible component of intrasubstance partial tearing in the proximal supraspinatus. * Mild acromioclavicular arthritis. * Mild subacromial subdeltoid bursitis. Coding Level of Care Code New Pt Level 3 (02540) Diagnoses Rotator cuff tear arthropathy of right shoulder M75.101; M12.811 CPT Codes Coding - Large joint: 51494 - Large joint ([id number])
--- OUTSIDE RECORDS SUMMARY | 2025-06-19 18:04 | XMS_ITS | Encounter Summary ---
Author Organization [employer] Address [address] [place] [address] Care Team Providers Care Forest Landscape Ecology Professor Name Role Phone Sara North MD Primary Care Provider [phone] Jigna Holt OD Unavailable [phone] Reason for Visit * Reason Onset Date Comments Med Refill 10/10/2023 Encounter Details Date Type Department Care Team ([facility] st Contact Info) Description 10/10/2023 Telephone [facility] [address] [place], [place] [phone] Sara North MD [address] [place], [place] [phone] Med Refill Social History Tobacco Use Types [...] 25 MG tablet To be sent to: [id number] [place], [place] - [address] [facility] documented in this encounter Plan of Treatment Upcoming Encounters Date Type Department Care Team (Late st Contact Info) Description 08/13/2025 3:00 PM EST Office Visit [facility] [address] [place] [address] Sara North MD [address] [place] [address] documented as of this encounter Visit Diagnoses Not on filedocumented in this encounter Care Teams Forest Landscape Ecology Professor Relationship Specialty Start Date End Date Sara North MD [address] [place] [address] PCP - General Family Medicine 09/26/22 Jigna Holt OD [address] [place] [phone] Optometry 10/24/24 [facility] [place] 10/28/24 documented as of this encounter
--- OUTSIDE RECORDS SUMMARY | 2025-06-19 18:04 | XMS_ITS | Encounter Summary ---
Author Organization [employer] Address [address] [facility] [address] [place] [address] Care Team Providers Care Log Carrier Operator Name Role Phone Sara North MD Primary Care Provider [phone] Jonathon, Megan OD Unavailable Reason for Referral * Consultation (Routine) - Closed Specialty Diagnoses / Procedures Referred By Contac t Referred To Contact Otolaryngology Diagnoses Flat tympanogram of left ear Sara North MD [address] [place] [address] Phone: tel: fax: [facility] [address] [place] [address] [place] [address] Phone: tel: fax: Referral ID Status Reason Start Date Expiration Date V isits Requested Visits Authorized [id number] Closed Specialty Services Required 05/16/2025 05/16/2026 1 1 Encounter Details Date Type Department Care Team (Late st Contact Info) Description 05/16/2025 Orders Only [facility] [address] [place], [place] [phone] Sara North MD [address] [place], [place] [phone] Flat tympanogram of left ear (Primary Dx) [...] Description 08/13/2025 3:00 PM EST Office Visit [facility] [address] [place] [address] Sara North MD [address] [place] [address] Scheduled Referrals Name Type Priority Associated Diagnoses Orde r Schedule Referral to ENT Outpatient Referral Routine Flat tympanogram of left ear Expected: 05/16/2025 (Approximate), Expires: 05/16/2026 documented as of this encounter Procedures Procedure Name Priority Date/Time Associated Diagnosis Comments BI MAMMOGRAM SCREENING TOMOSYNTHESIS BILATERAL Routine 06/11/2025 3:38 PM EDT documented in this encounter Results * BI Mammogram Screening Tomosynthesis Bilateral (06/11/2025 3:38 PM EDT) Anatomical Region Laterality Modality Breast Bilateral Mammography 06/11/2025 3:38 PM EDT Narrative 06/14/2025 6:21 PM EDT [facility] [address] [place] [address] Mammography Report Signed Patient: Carolin Avila MR#: [id number] : 1945 Acct:[id number] Age/Sex: 80 / F ADM Date: 06/11/25 Loc: MAMMO Attending Dr: Sara North MD Ordering Physician: Sara North Results: 1Negative Date of Service: 06/11/25 Follow Up: 1 Year From Orig [facility] Mammogram Procedure(s): MM tomosynthesis screening BI Accession Number(s): [id number] cc: Sara North Reason For Exam: Z12.31 EXAMINATION: MM SCREENING DIGITAL BREAST TOMOSYNTHESIS, BILATERAL CLINICAL INFORMATION: Screening. Asymptomatic. COMPARISON: Comparison made to multiple prior, most recent April 28, 2021, and most remote August 19, 2016. TECHNIQUE: Digital breast tomosynthesis is performed in mediolateral oblique and craniocaudal views along with computer-aided detection (CAD). Synthesized 2D images are generated from the tomosynthesis. FINDINGS: BREAST COMPOSITION: The breasts are heterogeneously dense, which may obscure small masses. BILATERAL BREASTS: No significant masses, suspicious calcifications or other abnormalities are seen in either breast. MM/MM tomosynthesis screening BI IMPRESSION: BILATERAL BREASTS: Negative, no mammographic evidence of malignancy. Normal interval follow-up is recommended in 12 months. ASSESSMENT: BI-RADS: Category 1: Negative RECOMMENDATION: Routine annual mammography screening. FOLLOW-UP: 1 year F/U This examination should not preclude the clinical evaluation of a suspicious palpable abnormality. This patient's information was entered into a reminder system with a target due date for their next mammogram. Electronically signed by: Milton Bain MD 06/14/2025 06:18 PM EDT Dictated By: Milton Bain MD Signed By: <Electronically signed by Mliton Bain MD in OV> 06/14/25 1818 DD/ 1538 TD/TT: 06/11/25 1550 Cob Sawyer: Procedure Note Donotuseinterpreter, Image - 06/14/2025 [facility] [address] [place] [address] Mammography Report Signed Patient: Rohith Avila#: [id number] : 5Acct:[id number] Age/Sex: 80 / FADM Date: 06/11/25 Loc: [facility] Attending Dr: Sara North MD Ordering Physician: Papo Northults: 1Negative Date of Service: 06/11/25Follow Up: 1 Year From Orig inal Mammogram Procedure(s): MM tomosynthesis screening BI Accession Number(s): [id number] cc: Sara North Reason For Exam: Z12.31 EXAMINATION: MM SCREENING DIGITAL BREAST TOMOSYNTHESIS, BILATERAL CLINICAL INFORMATION: Screening. Asymptomatic. COMPARISON: Comparison made to multiple prior, most recent April 28, 2021, and most remote August 19, 2016. TECHNIQUE: Digital breast tomosynthesis is performed in mediolateral oblique and craniocaudal views along with computer-aided detection (CAD). Synthesized 2D images are generated from the tomosynthesis. FINDINGS: BREAST COMPOSITION: The breasts are heterogeneously dense, which may obscure small masses. BILATERAL BREASTS: No significant masses, suspicious calcifications or other abnormalities are seen in either breast. MM/MM tomosynthesis screening BI IMPRESSION: BILATERAL BREASTS: Negative, no mammographic evidence of malignancy. Normal interval follow-up is recommended in 12 months. ASSESSMENT: BI-RADS: Category 1: Negative RECOMMENDATION: Routine annual mammography screening. FOLLOW-UP: 1 year F/U This examination should not preclude the clinical evaluation of a suspicious palpable abnormality. This patient's information was entered into a reminder system with a target due date for their next mammogram. Electronically signed by: Milton Bain MD 06/14/2025 06:18 PM EDT RP Dictated By: Milton Bain MD Signed By: <Electronically signed by Milton Bain MD in OV> 06/14/25 1818 DD/ 1538 TD/TT: 06/11/25 1550 Cob Sawyer: Sara North MD IMG BI PROCEDURES Edited Resul t - Final documented in this encounter Visit Diagnoses Diagnosis Flat tympanogram of left ear- Primary documented in this encounter Additional Health Concerns Assessment Noted Time PHQ-9 Depression Total Score: 8 01/15/20 25 10:25 AM EDT documented as of this encounter Care Teams Log Carrier Operator Relationship Specialty Start Date End Date Sara North MD [address] [place], [place] [phone] PCP - General Family Medicine 09/26/22 Jigna Holt OD [address] [place], [place] [phone] Optometry 10/24/24 [facility] [place] 10/28/24 documented as of this encounter
--- OUTSIDE RECORDS SUMMARY | 2025-06-19 18:04 | XMS_ITS | Encounter Summary ---
Author Organization [employer] Address [address] [place] [address] Care Team Providers Care Helicopter Technician Name Role Phone Sara North MD Primary Care Provider [phone] Jigna Holt OD Unavailable [phone] Encounter Details Date Type Department Care Team (Late st Contact Info) Description 06/18/2025 Orders Only [facility] [address] [place], [place] [phone] Sara North MD [address] [place], [place] [phone] Social History Tobacco Use Types Packs/Day Years [...] Office Visit [facility] [address] [place] [address] Sara North MD [address] [place] [address] documented as of this encounter Visit Diagnoses Not on filedocumented in this encounter Additional Health Concerns Assessment Noted Time PHQ-9 Depression Total Score: 8 01/15/20 25 10:25 AM EDT documented as of this encounter Care Teams Helicopter Technician Relationship Specialty Start Date End Date Sara North MD [address] [place] [phone] PCP - General Family Medicine 09/26/22 Jigna Holt OD [address] [place] [address] Optometry 10/24/24 [facility] [place] 10/28/24 documented as of this encounter
--- OUTSIDE RECORDS SUMMARY | 2025-06-19 18:04 | XMS_ITS | Encounter Summary ---
Author Organization [employer] Address [address] [place] [address] Care Team Providers Care Mail Clerk Bills Name Role Phone Sara North MD Primary Care Provider [phone] Jigna Holt OD Unavailable [phone] Reason for Visit * Reason Comments Med Refill Encounter Details Date Type Department Care Team ([facility] st Contact Info) Description 06/17/2025 Refill [facility] [address] [place], [place] [phone] Sara North MD [address] [place], [place] [phone] Osteopenia, unspecified location Social History Tobacco Use Types Packs/Day Years [...] Description 08/13/2025 3:00 PM EST Office Visit [facility] [address] [place] [address] Sara North MD [address] [place] [phone] documented as of this encounter Visit Diagnoses Diagnosis Osteopenia, unspecified location documented in this encounter Additional Health Concerns Assessment Noted Time PHQ-9 Depression Total Score: 8 01/15/20 25 10:25 AM EDT documented as of this encounter Care Teams Mail Clerk Bills Relationship Specialty Start Date End Date Sara North MD [address] [place] [phone] PCP - General Family Medicine 09/26/22 Jigna Holt OD [address] [place] [address] [phone] Optometry 10/24/24 [facility] [place] 10/28/24 documented as of this encounter
--- OUTSIDE RECORDS SUMMARY | 2025-06-19 18:04 | XMS_ITS | Clinical Summary ---
Author Organization [employer] Address [address] [place] [address] Care Team Providers Care Flanging Roll Operator Name Role Phone Sara North MD Primary Care Provider [phone] Jigna Holt OD Unavailable [phone] Allergies No known active allergies Medications [...] topically if needed (dry skin). 340 g 01/16/20 25 Active Diclofenac Sodium 1 % gel APPLY 2 GRAMS TOPICALLY FOUR TIMES DAILY TO AFFECTED AREAS 100 g 01/16/20 25 Active loratadine (Claritin) 10 MG tabletIndications: Seasonal allergies Take 1 tablet (10 mg) by mouth if needed each day for allergies. 90 tablet 01/16/20 25 026 Active losartan-hydroCHLO ROthiazide (Hyzaar) 100-12.5 MG tabletIndications: Essential hypertension Take 1 tablet by mouth Once per day. 90 tablet 01/16/20 25 Active magnesium, as gluconate, (Mag-G) 500 (27 Mg) MG tabletIndications: Muscle cramp, nocturnal TAKE 1 TABLET BY MOUTH EVERY EVENING FOR CRAMPS 90 tablet 01/16/20 25 Active metoprolol tartrate (Lopressor) 25 MG tabletIndications: Essential hypertension Take 1 tablet (25 mg) by mouth Once per day. 90 tablet 01/16/20 25 Active Multiple Vitamin (multivitamin) tabletIndications: Osteopenia, unspecified location Take 1 tablet by mouth Once per day. 90 tablet 01/16/20 25 Active rosuvastatin (Crestor) 20 MG tabletIndications: Hyperlipidemia, unspecified hyperlipidemia type Take 1 tablet (20 mg) by mouth Once per day. 90 tablet 01/16/20 25 Active ketorolac (Toradol) 10 MG tablet Take 1 tablet by mouth if needed in the morning and at bedtime for pain. 03/09/20 25 Active LORazepam (Ativan) 0.5 MG tablet Take 1 tablet (0.5 mg) by mouth Once daily as needed for anxiety (20 minutes before MRI) for up to 1 day. 1 tablet 05/09/20 25 Active acetaminophen (8 HR Arthritis Pain Relief) 650 MG ER tabletIndications: Acute pain of right shoulder Take 1 tablet (650 mg) by mouth every 8 (eight) hours if needed for mild pain. Do not crush, chew, or split. 30 tablet 06/18/20 25 Active tiZANidine (Zanaflex) 2 MG tablet Take 1 tablet (2 mg) by mouth at bedtime. 30 tablet 06/18/20 025 Active cyclobenzaprine (Flexeril) 5 MG tablet TAKE 1 TABLET BY MOUTH THREE TIMES DAILY NEEDED FOR MUSCLE SPASM. MAY CAUSE DROWSINESS / DIZZINESS 03/09/20 Discontin ued(Thera py completed ) Active Problems Problem Noted Date Diagnosed Date [...] EDT): She has not heard yet for ADOPTION AGENT evaluation services, will check in with medical records to see if they know which agency she was referred to, and to give them a call to schedule in home evaluation Assessment & Plan (08/18/2023 8:33 AM EST): Recommend ADOPTION AGENT for bathing, shopping, cooking and dressing needs Assessment & Plan (07/12/2023 4:45 PM EST): Recommend ADOPTION AGENT for bathing and clothing needs Hypercalcemia 05/26/2023 [...] consider TKA, last [place] Steve [place] [facility] [place], will re-refer for this followup discussion [...] Encounters Date Type Department Care Team Description 06/18/2025 Orders Only [facility] [address], [place] [address] Sara North MD 06/17/2025 Refill [facility] [address], [place] [address] Sara North MD Osteopenia, unspecified location 06/09/2025 Refill [facility] [address], [place] [address] Sara North MD Acute pain of right shoulder 06/06/2025 Results Follow-Up [facility] [address], [place] [address] Sara North MD MR Shoulder w/o Contrast Right 05/29/2025 Telephone [facility] [address], [place] [address] Sara North MD 05/16/2025 Orders Only [facility] [address], [place] [address] Sara North MD Flat tympanogram of left ear (Primary Dx) 05/09/2025 3:15 PM EDT Office Visit [facility] [address], [place] [address] Sara North MD Acute pain of right shoulder (Primary Dx) 05/08/2025 Travel 05/05/2025 Telephone [facility] [address] [place] [phone] Sara North MD Nurse Triage 05/01/2025 Results Follow-Up [facility] [address] [address] Jerry Mcmanus MD XR Ribs 3 Views Right with Chest 1 View 04/28/2025 5:40 PM EDT Office Visit [facility] OSTRANDER [address] [place] [address] Jerry Mcmanus MD Chronic right shoulder pain [...] Comments Heart attack Mother Kecia Stroke Mother Kecai passed 20 yrs a go Breast cancer [...] Description 08/13/2025 3:00 PM EST Office Visit [facility] [address] [facility] [place] [address] Sara North MD [address] [place] [address] Health Maintenance Due Date Last Done Comments [...] TOMOSYNTHESIS BILATERAL Routine 06/11/2025 3:38 PM EDT MR SHOULDER WO CONTRAST RIGHT Routine 06/05/2025 6:25 PM EDT Acute pain of right shoulder XR RIBS 3 VIEWS RIGHT W CHEST 1 VIEW Routine 04/30/2025 3:00 PM EDT LIPID PANEL, STANDARD Routine 01/02/2023 2:51 PM EDT Essential hypertension Dyslipidemia from Last 3 Months or Most Recently Relevant to Health Maintenance Results * BI Mammogram Screening Tomosynthesis Bilateral (06/11/2025 3:38 PM EDT) Anatomical Region Laterality Modality Breast Bilateral Mammography 06/11/2025 3:38 PM EDT Narrative 06/14/2025 6:21 PM EDT [facility] [address] [place] [address] Mammography Report Signed Patient: Carolin Avila MR#: [id number] : 1945 Acct:[id number] Age/Sex: 80 / F ADM Date: 06/11/25 Loc: HO.MAMMO Attending Dr: Sara North MD Ordering Physician: Sara North Results: 1Negative Date of Service: 06/11/25 Follow Up: 1 Year From [facility] Mammogram Procedure(s): MM tomosynthesis screening BI Accession Number(s): [id number] cc: Sara North Reason For Exam: Z12.31 [...] 06/14/25 1818 DD/ 1538 TD/TT: 06/11/25 1550 Help Desk Support: Procedure Note Donotuseinterpreter, Image - [facility]/14/[facility] [address] [place] [address] Mammography Report Signed Patient: Rohith Avila#: [id number] : 5Acct:[id number] Age/Sex: 80 / FADM Date: 06/11/25 Loc: ANDREW Attending Dr: Sara North MD Ordering Physician: Papo Northults: 1Negative Date of Service: 06/11/25Follow Up: 1 Year From [facility] Procedure(s): MM tomosynthesis screening BI Accession Number(s): [id number] cc: Sara North Reason For Exam: Z12.31 [...] 06/14/25 1818 DD/ 1538 TD/TT: 06/11/25 1550 Help Desk Support: us Sara North MD IMG BI PROCEDURES Edited Resul t - Final * MR Shoulder w/o Contrast Right (06/05/2025 6:25 PM EDT) Anatomical Region Laterality Modality Upper Extremities, Shoulder Right Magn etic Resonance 06/05/2025 6:25 PM EDT Narrative 06/06/2025 7:51 AM EDT [place] [address] Magnetic Resonance Report Signed Patient: Carolin Avila MR#: [id number] : 1945 Acct:[id number] Age/Sex: 80 / F ADM Date: 06/05/25 Loc: HO.MRI Attending Dr: Sara North MD Ordering Physician: Sara North Date of Service: 06/05/25 Procedure(s): MR shoulder RT wo con Accession Number(s): [id number] cc: Sara North Reason for Exam: pain and limited range of motion EXAMINATION: MR SHOULDER WITHOUT CONTRAST, RIGHT CLINICAL INFORMATION: Pain, limited range of motion. COMPARISON: X-rays 03/08/2025 TECHNIQUE: MRI of the shoulder without contrast was performed on a high-field scanner. FINDINGS: Motion artifact degrading images, limiting evaluation. ROTATOR CUFF: Moderate supraspinatus and infraspinatus tendinosis. Wboqchae-hkyd-cnrah partial tear of the insertional conjoined fibers [...] and infraspinatus tendinosis. 0.6 x 0.6 cm iecucalg-cypj-vxqdl partial tear in the conjoined supraspinatus/infraspinatus fibers. Possible component of intrasubstance partial tearing in the proximal supraspinatus. * Mild acromioclavicular arthritis. * Mild subacromial subdeltoid bursitis. Electronically signed by: Cali Oliva MD 06/06/2025 07:49 AM EDT Dictated By: Cali Oliva MD Signed By: <Electronically signed by Cali Oliva MD in OV> 06/06/25 0749 DD/ 1825 TD/TT: 06/05/25 1850 Help Desk Support: GABRIELA Procedure Note Donotuseinterpreter, Image - 06/06/[address] [address] Magnetic Resonance Report Signed Patient: Pascale AvilaR#: [id number] : 5Acct:[id number] Age/Sex: 80 / FADM Date: 06/05/25 Loc: HO.MRI Attending Dr: Sara North MD Ordering Physician: Sara North Date of Service: 06/05/25 Procedure(s): MR shoulder RT wo con Accession Number(s): [id number] cc: Sara North Reason for Exam: pain and limited range of motion EXAMINATION: MR SHOULDER WITHOUT CONTRAST, RIGHT CLINICAL INFORMATION: Pain, limited range of motion. COMPARISON: X-rays 03/08/2025 TECHNIQUE: MRI of the shoulder without contrast was performed on a high-field scanner. FINDINGS: Motion artifact degrading images, limiting evaluation. ROTATOR CUFF: Moderate supraspinatus and infraspinatus tendinosis. Hofcbtpt-urvc-wpskm partial tear of the insertional conjoined fibers [...] and infraspinatus tendinosis. 0.6 x 0.6 cm xpoltwbe-lhct-hxegb partial tear in the conjoined supraspinatus/infraspinatus fibers. Possible component of intrasubstance partial tearing in the proximal supraspinatus. * Mild acromioclavicular arthritis. * Mild subacromial subdeltoid bursitis. Electronically signed by: Cali Oliva MD 06/06/2025 07:49 AM EDT Dictated By: Cali Oliva MD Signed By: <Electronically signed by Cali Oliva MD in OV> 06/06/25 0749 DD/ 1825 TD/TT: 06/05/25 185 Help Desk Support: GABRIELA Sara North MD IMG MRI PROCEDURES Final Resul t * XR Ribs 3 Views Right with Chest 1 View (04/30/2025 3:00 PM EDT) Anatomical Region Laterality Modality Radiographic Liss ging 04/30/2025 3:00 PM EDT Narrative 04/30/2025 3:29 PM EDT [place] [address] XRay Report Signed Patient: Carolin Avila MR#: [id number] : 1945 Acct:[id number] Age/Sex: 80 / F ADM Date: 04/30/25 Loc: CHOL[facility] Attending Dr: Jerry Mcmanus MD Ordering Physician: Jerry Mcmanus MD Date of Service: 04/30/25 Procedure(s): XR ribs RT min 3V w CXR1V Accession Number(s): [id number] cc: Sara North; Jerry Mcmanus MD Reason [...] 04/30/25 1526 DD/ 1500 TD/TT: 04/30/25 1507 Help Desk Support: Procedure Note Donotuseinterpreter, Image - 04/30/[address] [address] XRay Report Signed Patient: Rohith Avila#: [id number] : 5Acct:[id number] Age/Sex: 80 / FADM Date: 04/30/25 Loc: HO.XRAY Attending Dr: Jerry Mcmanus MD Ordering Physician: Jerry Mcmanus MD Date of Service: 04/30/25 Procedure(s): XR ribs RT min 3V w CXR1V Accession Number(s): [id number] cc: Sara North; Jerry Mcmanus MD Reason [...] 04/30/25 1526 DD/ 1500 TD/TT: 04/30/25 1507 Help Desk Support: us Jerry Mcmanus MD IMG XR PROCEDURES Edited Result - Final * Lipid Panel, Standard (01/02/2023 2:51 PM EDT) Cholesterol, Total 132 <200 mg/dL [facility] HDL Cholesterol 57 > OR = 50 mg/dL [facility] Triglycerides 105 <150 mg/dL [facility] LDL Cholesterol 56 mg/dL (calc) [facility] Comment: Reference range: <100 Desirable range <100 mg/dL for primary prevention; <70 mg/dL for patients with CHD or diabetic patients with > or = 2 CHD risk factors. LDL-C is now calculated using the Kai calculation, which is a validated novel method providing better accuracy than the Friedewald equation in the estimation of LDL-C. Wu SS et al. DARIEL. 2013;310(19): 8975-4773 (http://education.[employer]/faq/ZTG043) Chol/HDLC Ratio 2.3 <5.0 (calc) [facility] Non-HDL Cholesterol 75 <130 mg/dL (calc) [facility] Comment: For patients with diabetes plus 1 [...] ORDERABLES Final Res ult [facility] [address] [place] [address] [facility] [address] [place] [address] from Last 3 Months or Most Recently Relevant to Health Maintenance Insurance MEDICARE [facility] STANDARD Care Teams Flanging Roll Operator Relationship Specialty Start Date End Date Sara North MD [address] [place] [address] PCP - General Family Medicine 09/26/22 Jigna Holt OD [address] [place] [address] Optometry 10/24/24 [facility] [place] 10/28/24
--- OUTSIDE RECORDS SUMMARY | 2025-06-19 18:04 | XMS_ITS | Encounter Summary ---
Author Organization [employer] Address [address] [place] [address] Care Team Providers Care Caustic Plant Worker Name Role Phone Sara North MD Primary Care Provider [phone] Jigna Holt OD Unavailable [phone] Encounter Details Date Type Department Care Team ([facility] st Contact Info) Description 04/24/2024 Orders Only [facility] [address] [place], [place] [phone] Sara North MD [address] [place], [place] [phone] Social History Tobacco Use Types Packs/Day Years [...] Description 08/13/2025 3:00 PM EST Office Visit [facility] [address] [place], [place] [phone] Sara North MD [address] [place] [address] documented as of this encounter Visit Diagnoses Not on filedocumented in this encounter Care Teams Caustic Plant Worker Relationship Specialty Start Date End Date Sara North MD [address] [place] [phone] PCP - General Family Medicine 09/26/22 Jigna Holt OD [address] [place], [place] [phone] Optometry 10/24/24 [facility] [place] 10/28/24 documented as of this encounter
--- OUTSIDE RECORDS SUMMARY | 2025-06-19 18:04 | XMS_ITS | Encounter Summary ---
Author Organization [employer] Address [address] [place] [address] Care Team Providers Care Tax Commissioner Name Role Phone Sara North MD Primary Care Provider [phone] JonathonJigna felipe OD Unavailable [phone] Reason for Visit * Reason Onset Date Comments Nurse Triage 06/09/2025 Encounter Details Date Type Department Care Team (Late st Contact Info) Description 06/09/2025 Refill [facility] [address] [place] [address] Sara North MD [address] [place] [address] Acute pain of right shoulder Social History Tobacco Use Types Packs/Day Years [...] as of this encounter Miscellaneous Notes * Addendum Note - Glory Reeves RN - 06/16/2025 2:16 PM ESTAddended by: GLORY REEVES on: 06/16/2025 02:16 PM Modules accepted: Orders * Telephone Encounter - Glory Reeves RN - 06/16/2025 2:14 PM EST TC placed to pt. Pt. Will be following up with ortho at scheduled appointment this week 06/19/25. Pt. Is also requesting to try the APAP arthritis and mild sedative to help her sleep. APAP pended * Telephone Encounter - Maricarmen Pichardo RN [...] daughter requesting a call back Contact at [phone] (tuvaluan) * Telephone Encounter - Maricarmen Pichardo RN - 06/09/2025 3:45 PM EDT TC to pt/pt daughter phone number with [facility] health workers. No answer. left instructing pt to return call to office. * Telephone Encounter - Elizabeth Miramontes - 06/09/2025 2:36 PM EDT Symptoms: Shoulder Pain - Not From Injury, Sleeping Difficulty Outcome: Schedule an urgent appointment (within 1 hour) or talk to a nurse or provider soon Reason: Severe pain now The caller accepted this outcome. Contact pt at [phone] (tuvaluan) documented in this encounter Plan of Treatment Upcoming Encounters Date Type Department Care Team (Late st Contact Info) Description 08/13/2025 3:00 PM EST Office Visit [facility] [address] [place] [address] Sara North MD [address] [place] [address] documented as of this encounter Visit Diagnoses Diagnosis Acute pain of right shoulder documented in this encounter Additional Health Concerns Assessment Noted Time PHQ-9 Depression Total Score: 8 01/15/20 25 10:25 AM EDT documented as of this encounter Care Teams Tax Commissioner Relationship Specialty Start Date End Date Sara North MD [address] [place] [address] PCP - General Family Medicine 09/26/22 Jigna Holt OD [address] [place] [phone] Optometry 10/24/24 [facility] [place] 10/28/24 documented as of this encounter
--- OUTSIDE RECORDS SUMMARY | 2025-06-19 18:04 | XMS_ITS | Encounter Summary ---
Author Organization [employer] Address [address] [place] [address] Care Team Providers Care Utility Clerk Name Role Phone Sara North MD Primary Care Provider [phone] JonathonJigna OD Unavailable [phone] Reason for Referral * Imaging (Routine) - Closed Specialty Diagnoses / Procedures Referred By Contac t Referred To Contact Radiology Diagnoses Right upper quadrant abdominal pain Procedures CT Abdomen Pelvis w/ Contrast Sara North MD [address] [place] [address] Phone: tel: fax: [address] Phone: tel: fax: Referral ID Status Reason Start Date Expiration Date Visits Re quested Visits Authorized [id number] Closed 10/30/2024 10/30/2025 1 1 Encounter Details Date Type Department Care Team (Late st Contact Info) Description 10/30/2024 Orders Only [facility] [address] [place], [place] [phone] Sara North MD [address] [place], [place] [phone] Right upper quadrant abdominal pain (Primary Dx) [...] Description 08/13/2025 3:00 PM EST Office Visit [facility] [address] [place] [address] Sara North MD [address] [place] [address] Scheduled Orders Name Type Priority Associated Diagnoses Orde r Schedule CT Abdomen Pelvis w/ Contrast Imaging Routine Right upper quadrant abdominal pain Expected: 10/30/2024, Expires: 10/30/2025 documented as of this encounter Visit Diagnoses Diagnosis Right upper quadrant abdominal pain- Primary documented in this encounter Care Teams Utility Clerk Relationship Specialty Start Date End Date Sara North MD [address] [place], [place] [phone] PCP - General Family Medicine 09/26/22 Jigna Holt OD [address] [place], [place] [phone] Optometry 10/24/24 [facility] Orthopedics 10/28/24 documented as of this encounter
== END 2025-06-19 15:32 | disposition home or self-care (01) ==
LOC: HO.HOS 14:56
PROVIDERS: PCP General Practice; Visit Provider Physician Assistant
DX: M75.101 Unspecified rotator cuff tear or rupture of right shoulder, not specified as traumatic (principal); M12.811 Other specific arthropathies, not elsewhere classified, right shoulder
CPT/HCPCS: 20610; 99213

== ENCOUNTER → 2025-06-19 14:55 | Outpatient (BNVA) | payer MEDICARE, MEDICAID, SELFPAY | PROVIDERS: PCP General Practice; Visit Provider Physician Assistant | DX: M25.511 Pain in right shoulder (principal); M75.101 Unspecified rotator cuff tear or rupture of right shoulder, not specified as traumatic; M12.811 Other specific arthropathies, not elsewhere classified, right shoulder | CPT/HCPCS: 20610; 99212; J0665; J1100; J2003 ==

== ENCOUNTER 2025-07-17 11:54 | Emergency (ER) | payer MEDICARE, MEDICAID, SELFPAY ==
--- NOTE | ~2025-07-17 | CT_ITS ---
EXAMINATION: CT CERVICAL SPINE WITHOUT CONTRAST CLINICAL INFORMATION: Neck pain COMPARISON: None available. TECHNIQUE: Contiguous axial images through the cervical spine using 3 mm collimation with bone and soft tissue algorithm. Sagittal and coronal reformatted images acquired. This CT examination was performed using dose optimization techniques as appropriate, variously including the following: *Automated exposure control *Adjustment of mA and/or kV according to patient size (this includes techniques or standardized protocols for targeted exams where dose is matched to indication/reason for exam; i.e. extremities or head) *Use of iterative reconstruction technique. DLP: 430 mGy-cm FINDINGS: Craniocervical junction is intact with normal position of the cerebellar tonsils. Normal alignment between the occipital condyles and the lateral masses of C1. No acute cortical disruption or gross malalignment between the vertebral bodies or the facet joints. No prevertebral compartment hematoma. C1 is intact. C2 is intact. C3 is intact. C4 is intact. C5 is intact. C6 is intact. C7 is intact. Calcified plaque in the main branches of the thoracic aorta and the left ICA. Tympanic cavities and mastoid cells are aerated with poor pneumatization of the mastoids. Edentulous. 1.1 cm nodule, left thyroid lobe.. CT/CT cervical spine wo IV con IMPRESSION: No acute fracture or trauma-related listhesis. Fleischner guidelines were followed. Electronically signed by: Chang Whitaker MD 07/17/2025 02:08 PM SKYE
[2025-07-17 11:57] VITALS: BP 138/63; PULSE 63; RESP 16; TEMP 36.2; O2SAT 97; BMI 30.3
--- NOTE | 2025-07-17 12:03 | ED.GENADULT ---
HPI - General Adult General Chief complaint: Back Pain/Injury Stated complaint: Back Pain Time Seen by Provider: 07/17/25 15:12 Source: patient Mode of arrival: ambulatory Limitations: no limitations History of Present Illness ED Provider: Ezequiel Carver HPI narrative: 50 yold female with pmh chronic right shoulder pain presents to the ED for right posterior neck pain and right shoulder pain. Patient denies any recent trauma, paralysis, of extremiteis, chest pain, shortness of breath, slurred speech, facial droop, dizziness, headache, nuasea, or vomitting. Related Data Home Medications ?Medication ?Instructions ?Recorded ?Confirmed acetaminophen 650 mg 650 mg PO Q8H 12/29/21 08/23/22 tablet,extended release (Tylenol Arthritis Pain) aspirin 81 mg tablet,delayed 81 mg PO DAILY 12/29/21 08/23/22 release calcium carbonate (Oyster Shell 500 mg PO BID 12/29/21 08/23/22 Calcium 500) ferrous gluconate 324 mg (38 mg 324 mg PO DAILY 12/29/21 08/23/22 iron) tablet metoprolol tartrate 25 mg tablet 25 mg PO DAILY 12/29/21 08/23/22 cholecalciferol (vitamin D3) 50 50 mcg PO DAILY 01/04/22 08/23/22 mcg (2,000 unit) tablet terbinafine HCl 1 % topical cream appl topical BID 01/04/22 08/23/22 triamcinolone acetonide 0.1 % topical BID 01/04/22 08/23/22 topical ointment rosuvastatin 20 mg tablet 20 mg PO DAILY 06/30/22 08/23/22 magnesium gluconate 27 mg 27 mg PO QPM cramps 08/23/22 08/23/22 magnesium (500 mg) tablet (Mag-G) Previous Rx's ?Medication ?Instructions ?Recorded naproxen 500 mg tablet (Naprosyn) 500 mg PO BID PRN pain #14 tabs 02/19/22 losartan 50 mg tablet 50 mg PO BID #60 tabs 04/04/22 cyclobenzaprine 5 mg tablet 5 mg PO TID PRN muscle spasm #10 03/08/25 tabs ketorolac 10 mg tablet 10 mg PO .B.i.d. PRN pain #8 tabs 03/08/25 cyclobenzaprine 10 mg tablet 10 mg PO BEDTIME PRN muscle spasm 07/17/25 #10 tabs naproxen 500 mg tablet 500 mg PO BID PRN pain #14 tabs 07/17/25 prednisone 20 mg tablet 40 mg (2 x 20 mg) PO DAILY 5 days 07/17/25 #10 tabs Allergies Allergy/AdvReac Type Severity Reaction Status Date / Time No Known Allergies Allergy Verified 07/17/25 12:02 Review of Systems Review of Systems: neck and shoulder pain Yes all other systems are reviewed and are negative FOR[facility]LY [facility] Past Medical History Medical History Osteopenia Osteoarthritis Anemia Elevated cholesterol HTN (hypertension) Surgical History (Updated 08/16/23 @ 12:50 by Cassie Lester RN) History of cholecystectomy Family History Family History Mother Cancer Family/Other Colon cancer Social History Social History Patient Tobacco Use Status: Never used Tobacco Physical Exam ED Vital Signs: Vital Signs - 24 hr 07/17/25 11:57 Temperature 97.1 F Pulse Rate 63 Respiratory Rate 16 Blood Pressure 138/63 Pulse Oximetry 97 Oxygen Delivery Method Room Air BMI result Body Mass Index 30.3 Const General: cooperative, healthy appearing, comfortable, no acute distress and alert Orientation/consciousness: patient oriented x3 HENMT Head: Yes normal to inspection, Yes No palpable skull fracture present, Yes normocephalic and Yes atraumatic Eyes General: appearance normal, both eyes and all related structures Neck Neck: Yes normal visual inspection, Yes full ROM, Yes no lymphadenopathy, Yes no meningeal signs, Yes trachea midline, Yes supple, No anterior neck swelling and Yes tender (mild posterior) Chest Chest palpation & inspection: normal inspection of the chest and normal palpation of entire chest wall Resp Effort & Inspection: normal respiratory effort and able to speak in complete sentences Auscultation: clear to auscultation bilaterally Cardio Jugular venous distension: no JVD Heart sounds: S1 normal heart sound present and S2 normal heart sound present GI Inspection: Yes normal to inspection Palpation (GI): Soft to palpation, not firm, nontender, no guarding and not rigid General: Yes no CVA tenderness Back/Spine/Pelvis Back: no CVA tenderness and No back tenderness Skin General skin exam: no rashes or lesions noted, elasticity normal and turgor normal Neuro General: patient oriented x3, gait normal, tone normal, moves all extremities, Normal light touch and pain sensation, no meningeal signs, no focal motor deficits, CN's II-XI intact bilaterally and normal sensation to monofilament Extrem General: Yes normal to inspection and Yes full ROM Shoulder/upper arm images:  1. Positive for pain on range of motion. Positive for slight tenderness on palpation. Negative for swelling, erythema, ecchymosis, or deformity. Negative for crepitus ecchymosis. Rest of extremity normal. Motor/neuro/vascular exam intact. Psych Appearance: grossly normal and well kempt Course Course Course Narrative: RME: 80 yold female presents to the eD for posteiror neck pain radiating down right arm. patient has shoulder MRI which showed tendoinitis and supraspinuats tears Medical Decision Making Medical Decision Making MDM Narrative: 80-year-old female presents to ED for chronic shoulder pain with some mild neck pain without any trauma. Negative for signs of meningitis, carotid or vertebral dissection, encephalitis, stroke, cervical spine fracture,DC or any other life threatening etiology. Cervical spine CAT scan negative for any signs of arthritis. MRI dad that was done in May shows patient has supraspinatus infraspinatus tendinitis with some tears. This was contributing to patient's pain we will need to follow up with [facility]. Patient explained worrisome signs informed return to the ED immediately. Differential Diagnosis Differential Diagnoses: The differential diagnosis associated with the presentation includes Admission/Observation Consideration of admission/observation: Escalation of care including admission/observation considered Independent Interpretation I performed an independent interpretation of an: CT Scan Radiology Impression Discussion of test interpretation with radiology: I have reviewed the radiologist's reading. Independent Historian Clinical information obtained from an independent historian. History obtained from or confirmed by: Other (Patient is) Prescription Management I considered prescription management with: Pain Medication Discharge Plan Discharge Clinical Impression: Right supraspinatus tendonitis, Infraspinatus tendonitis Patient Disposition: Home, Self-Care Instructions: Rotator Cuff Tendinitis (ED) Additional Instructions: Recommend follow-up with the primary care provider and orthopedic surgeon. You will need physical therapy possible steroid injection. Return to the ED immediately for any swelling upper extremity, severe pain, facial droop, neck pain, chest pain, shortness of breath, paralysis, weakness, dizziness, nausea, vomiting, slurred speech, or any other concerning symptoms. Ordering Physician: Ezequiel Carver Date of Service: 07/17/25 Procedure(s): CT cervical spine wo IV con Accession Number(s): [id number] cc: Ezequiel Carver~ Report Number: [id number]: Total DLP = 430.00 mGy-cm Reason for Exam: neck pain EXAMINATION: CT CERVICAL SPINE WITHOUT CONTRAST CLINICAL INFORMATION: Neck pain COMPARISON: None available. TECHNIQUE: Contiguous axial images through the cervical spine using 3 mm collimation with bone and soft tissue algorithm. Sagittal and coronal reformatted images acquired. This CT examination was performed using dose optimization techniques as appropriate, variously including the following: *Automated exposure control *Adjustment of mA and/or kV according to patient size (this includes techniques or standardized protocols for targeted exams where dose is matched to indication/reason for exam; i.e. extremities or head) *Use of iterative reconstruction technique. DLP: 430 mGy-cm FINDINGS: Craniocervical junction is intact with normal position of the cerebellar tonsils. Normal alignment between the occipital condyles and the lateral masses of C1. No acute cortical disruption or gross malalignment between the vertebral bodies or the facet joints. No prevertebral compartment hematoma. C1 is intact. C2 is intact. C3 is intact. C4 is intact. C5 is intact. C6 is intact. C7 is intact. Calcified plaque in the main branches of the thoracic aorta and the left ICA. Tympanic cavities and mastoid cells are aerated with poor pneumatization of the mastoids. Edentulous. 1.1 cm nodule, left thyroid lobe.. CT/CT cervical spine wo IV con IMPRESSION: No acute fracture or trauma-related listhesis. Fleischner guidelines were followed. Electronically signed by: Chang Whitaker MD 07/17/2025 02:08 PM [facility] Prescriptions: New prednisone 20 mg tablet 40 mg PO DAILY 5 Days Qty: 10 0RF naproxen 500 mg tablet 500 mg PO BID PRN (Reason: pain) Qty: 14 0RF cyclobenzaprine 10 mg tablet 10 mg PO BEDTIME PRN (Reason: muscle spasm) Qty: 10 0RF Rx Instructions: side effect is drowsiness. Do not take at work or while driving. No Action losartan 50 mg tablet 50 mg PO BID Qty: 60 2RF naproxen [Naprosyn] 500 mg tablet 500 mg PO BID PRN (Reason: pain) Qty: 14 0RF ketorolac 10 mg tablet 10 mg PO .B.i.d. PRN (Reason: pain) Qty: 8 0RF cyclobenzaprine 5 mg tablet 5 mg PO TID PRN (Reason: muscle spasm) Qty: 10 0RF Rx Instructions: This medication may cause drowsiness/dizziness. cholecalciferol (vitamin D3) 50 mcg (2,000 unit) tablet 50 mcg PO DAILY triamcinolone acetonide 0.1 % ointment topical BID terbinafine HCl 1 % cream topical BID calcium carbonate [Oyster Shell Calcium 500] 500 mg calcium (1,250 mg) tablet 500 mg PO BID aspirin 81 mg tablet,delayed release (DR/EC) 81 mg PO DAILY metoprolol tartrate 25 mg tablet 25 mg PO DAILY ferrous gluconate 324 mg (38 mg iron) tablet 324 mg PO DAILY acetaminophen [Tylenol Arthritis Pain] 650 mg tablet extended release 650 mg PO Q8H magnesium gluconate [Mag-G] 27 mg magnesium (500 mg) tablet 27 mg PO QPM rosuvastatin 20 mg tablet 20 mg PO DAILY Ref[place]: [facility] [place] [facility] [Provider Group, Orthopedics] - 2 days Referral Note: Right shoulder tendinitis. May need steroid injection. Physical therapy Clinical Impression: Infraspinatus tendonitis; Right supraspinatus tendonitis Interventions: ED Discharge Assessment Last Done: 07/17/25 16:00 Discharge Date/Time: 07/17/25 16:00 Print Language: Swedish
[2025-07-17 15:51] VITALS: BP 142/64; PULSE 73; RESP 14; TEMP 36.7; O2SAT 96
[2025-07-17 16:00] VITALS: BP 142/64; PULSE 73; RESP 14; TEMP 36.7; O2SAT 96
--- OUTSIDE RECORDS SUMMARY | 2025-07-17 21:36 | XMS_ITS | Clinical Summary ---
Author Organization [employer] Address [address] [place] [address] Care Team Providers Care Rebar Bender Name Role Phone Sara North MD Primary Care Provider [phone] Jigna Holt OD Unavailable [phone] Allergies No known active allergies Medications [...] EDT): She has not heard yet for [employer] evaluation services, will check in with medical records to see if they know which agency she was referred to, and to give them a call to schedule in home evaluation Assessment & Plan (08/18/2023 8:33 AM EST): Recommend [employer] for bathing, shopping, cooking and dressing needs Assessment & Plan (07/12/2023 4:45 PM EST): Recommend [employer] for bathing and clothing needs Hypercalcemia 05/26/2023 [...] consider TKA, [place] [facility] [place] will re-refer for this followup discussion [...] Department Care Team Description 06/18/2025 Orders Only [facility] [address], [place] [address] Sara North MD 06/17/2025 Refill [facility] [address], [place] [address] Sara North MD Osteopenia, unspecified location 06/09/2025 Refill [facility] [address], [place] [address] Sara North MD Acute pain of right shoulder 06/06/2025 Results Follow-Up [facility] [address], [place] [address] Sara North MD MR Shoulder w/o Contrast Right 05/29/2025 Telephone [facility] [address], [place] [address] Sara North MD 05/16/2025 Orders Only [facility] [address], [place] [address] Sara North MD Flat tympanogram of left ear (Primary Dx) 05/09/2025 3:15 PM EDT Office Visit [facility] [address], [place] [address] Sara North MD Acute pain of right shoulder (Primary Dx) 05/08/2025 Travel 05/05/2025 Telephone [facility] [address] [place] [phone] Sara North MD Nurse Triage 05/01/2025 Results Follow-Up [facility] [address] [address] Jerry Mcmanus MD XR Ribs 3 Views Right with Chest 1 View 04/28/2025 5:40 PM EDT Office Visit [facility] [place] [address] [place] [address] Jerry Mcmanus MD Chronic right shoulder pain [...] 3:00 PM EST Office Visit [facility] [address] [facility] [place] [address] Sara North MD [address] [facility] [place] [address] Health Maintenance Due Date Last Done Comments [...] PM EDT Narrative 06/14/2025 6:21 PM EDT [facility] [address] [place] [address] Mammography Report Signed Patient: Carolin Avila MR#: [id number] : 1945 Acct:[id number] Age/Sex: 80 / F ADM Date: 06/11/25 Loc: HO.MAMMO Attending Dr: Sara North MD Ordering Physician: Sara North Results: 1Negative Date of Service: 06/11/25 Follow Up: 1 Year From [facility] Mammogram Procedure(s): MM tomosynthesis screening BI Accession Number(s): [id number] cc: Sara North Reason For Exam: Z12.31 [...] 06/14/25 1818 DD/ 1538 TD/TT: 06/11/25 1550 Student Loan Counselor: Procedure Note Donotuseinterpreter, Image - [facility] [address] [place] [address] Mammography Report Signed Patient: Rohith Avila#: [id number] : 5Acct:[id number] Age/Sex: 80 / FADM Date: 06/11/25 Loc: ANDREW Attending Dr: Sara North MD Ordering Physician: Papo Northults: 1Negative Date of Service: 06/11/25Follow Up: 1 Year From Orig ina Mammogram Procedure(s): MM tomosynthesis screening BI Accession Number(s): [id number] cc: Sara North Reason For Exam: Z12.31 [...] 06/14/25 1818 DD/ 1538 TD/TT: 06/11/25 1550 Student Loan Counselor: us Sara North MD IMG BI PROCEDURES Edited Resul t - Final * MR Shoulder w/o Contrast Right (06/05/2025 6:25 PM EDT) Anatomical Region Laterality Modality Upper Extremities, Shoulder Right Magn etic Resonance 06/05/2025 6:25 PM EDT Narrative 06/06/2025 7:51 AM EDT [place] [address] Magnetic Resonance Report Signed Patient: Carolin Avila MR#: [id number] : 1945 Acct:[id number] Age/Sex: 80 / F ADM Date: 06/05/25 Loc: HO.MRI Attending Dr: Sara North MD Ordering Physician: Sara North Date of Service: 06/05/25 Procedure(s): MR shoulder RT wo con Accession Number(s): [id number] cc: Sara North Reason for Exam: pain and limited range of motion EXAMINATION: MR SHOULDER WITHOUT CONTRAST, RIGHT CLINICAL INFORMATION: Pain, limited range of motion. COMPARISON: X-rays 03/08/2025 TECHNIQUE: MRI of the shoulder without contrast was performed on a high-field scanner. FINDINGS: Motion artifact degrading images, limiting evaluation. ROTATOR CUFF: Moderate supraspinatus and infraspinatus tendinosis. Icdpgcax-vwuu-tvhmj partial tear of the insertional conjoined fibers [...] and infraspinatus tendinosis. 0.6 x 0.6 cm ukcjafhs-czge-lmvoa partial tear in the conjoined supraspinatus/infraspinatus fibers. Possible component of intrasubstance partial tearing in the proximal supraspinatus. * Mild acromioclavicular arthritis. * Mild subacromial subdeltoid bursitis. Electronically signed by: Cali Oliva MD 06/06/2025 07:49 AM EDT Dictated By: Cali Oliva MD Signed By: <Electronically signed by Cali Oliva MD in OV> 06/06/25 0749 DD/ 1825 TD/TT: 06/05/25 1850 Student Loan Counselor: GABRIELA Procedure Note Donotuseinterpreter, Image - 06/06/[address] [address] Magnetic Resonance Report Signed Patient: Pascale AvilaR#: [id number] : 5Acct:[id number] Age/Sex: 80 / FADM Date: 06/05/25 Loc: HO.MRI Attending Dr: Sara North MD Ordering Physician: Sara North Date of Service: 06/05/25 Procedure(s): MR shoulder RT wo con Accession Number(s): [id number] cc: Sara North Reason for Exam: pain and limited range of motion EXAMINATION: MR SHOULDER WITHOUT CONTRAST, RIGHT CLINICAL INFORMATION: Pain, limited range of motion. COMPARISON: X-rays 03/08/2025 TECHNIQUE: MRI of the shoulder without contrast was performed on a high-field scanner. FINDINGS: Motion artifact degrading images, limiting evaluation. ROTATOR CUFF: Moderate supraspinatus and infraspinatus tendinosis. Lvgyjxou-ktda-mouru partial tear of the insertional conjoined fibers [...] and infraspinatus tendinosis. 0.6 x 0.6 cm htsgrpjs-xugo-buphh partial tear in the conjoined supraspinatus/infraspinatus fibers. Possible component of intrasubstance partial tearing in the proximal supraspinatus. * Mild acromioclavicular arthritis. * Mild subacromial subdeltoid bursitis. Electronically signed by: Cali Oliva MD 06/06/2025 07:49 AM EDT Dictated By: Cali Oliva MD Signed By: <Electronically signed by Cali Oliva MD in OV> 06/06/25 0749 DD/ 1825 TD/TT: 06/05/25 185 Student Loan Counselor: GABRIELA Sara North MD IMG MRI PROCEDURES Final Resul t * XR Ribs 3 Views Right with Chest 1 View (04/30/2025 3:00 PM EDT) Anatomical Region Laterality Modality Radiographic Liss ging 04/30/2025 3:00 PM EDT Narrative 04/30/2025 3:29 PM EDT [place] [address] XRay Report Signed Patient: Carolin Avila MR#: [id number] : 1945 Acct:[id number] Age/Sex: 80 / F ADM Date: 04/30/25 Loc: CHOLO Attending Dr: Jerry Mcmanus MD Ordering Physician: Jerry Mcmanus MD Date of Service: 04/30/25 Procedure(s): XR ribs RT min 3V w CXR1V Accession Number(s): [id number] cc: Sara North; Jerry Mcmanus MD Reason [...] 04/30/25 1526 DD/ 1500 TD/TT: 04/30/25 1507 Student Loan Counselor: Procedure Note Donotuseinterpreter, Image - 04/30/[address] [address] XRay Report Signed Patient: Rohith Avila#: [id number] : 5Acct:[id number] Age/Sex: 80 / FADM Date: 04/30/25 Loc: HO.XRAY Attending Dr: Jerry Mcmanus MD Ordering Physician: Jerry Mcmanus MD Date of Service: 04/30/25 Procedure(s): XR ribs RT min 3V w CXR1V Accession Number(s): [id number] cc: Sara North; Jerry Mcmanus MD Reason [...] 04/30/25 1526 DD/ 1500 TD/TT: 04/30/25 1507 Student Loan Counselor: us Jerry Mcmanus MD IMG XR PROCEDURES Edited Result - Final * Lipid Panel, Standard (01/02/2023 2:51 PM EDT) Cholesterol, Total 132 <200 mg/dL [facility] [place] [facility] HDL Cholesterol 57 > OR = 50 mg/dL [facility] [place] [facility] Triglycerides 105 <150 mg/dL [facility] [place] [facility] LDL Cholesterol 56 mg/dL (calc) [facility] Comment: Reference range: <100 Desirable range <100 mg/dL for primary prevention; <70 mg/dL for patients with CHD or diabetic patients with > or = 2 CHD risk factors. LDL-C is now calculated using the Kai calculation, which is a validated novel method providing better accuracy than the Friedewald equation in the estimation of LDL-C. Wu SS et al. DARIEL. 2013;310(19): 3392-9547 (http://education.[employer]/faq/SAJ167) Chol/HDLC Ratio 2.3 <5.0 (calc) [facility] Non-HDL Cholesterol 75 <130 mg/dL (calc) [facility] Comment: For patients with diabetes plus 1 [...] BLOOD ORDERABLES Final Res ult [facility] [address], [place] [address] [facility] [place] [facility] [address] [place] [address] from Last 3 Months or Most Recently Relevant to Health Maintenance Insurance MEDICARE [facility] STANDARD Care Teams Rebar Bender Relationship Specialty Start Date End Date Sara North MD [address] [place] [address] PCP - General Family Medicine 09/26/22 Jigna Holt OD [address] [place] [address] Optometry 10[place]24[place]24 [facility] 10/28/24
--- OUTSIDE RECORDS SUMMARY | 2025-07-17 21:36 | XMS_ITS | Encounter Summary ---
Author Organization [employer] Address [address] [place] [address] Care Team Providers Care Branch Operations Coordinator Name Role Phone Sara North MD Primary Care Provider [phone] Jigna Holt OD Unavailable [phone] Reason for Visit * Reason Onset Date Comments Med Refill 10/10/2023 Encounter Details Date Type Department Care Team ([facility] st Contact Info) Description 10/10/2023 Telephone [facility] [address] [place], [place] [phone] Sara North MD [address] [place], [place] [phone] Med Refill Social History Tobacco Use Types [...] 25 MG tablet To be sent to: [id number] [place], [place] - [address] [facility] documented in this encounter Plan of Treatment Upcoming Encounters Date Type Department Care Team (Late st Contact Info) Description 08/13/2025 3:00 PM EST Office Visit [facility] [address] [place] [address] Sara North MD [address] [place] [address] documented as of this encounter Visit Diagnoses Not on filedocumented in this encounter Care Teams Branch Operations Coordinator Relationship Specialty Start Date End Date Sara North MD [address] [place] [address] PCP - General Family Medicine 09/26/22 Jigna Holt OD [address] [place] [address] Optometry 10/24/24 [facility] [place] 10/28/24 documented as of this encounter
--- OUTSIDE RECORDS SUMMARY | 2025-07-17 21:36 | XMS_ITS | Encounter Summary ---
Author Organization [employer] Address [address] [place] [address] Care Team Providers Care Medical Technologist Chief Name Role Phone Sara North MD Primary Care Provider [phone] Jigna Holt OD Unavailable [phone] Reason for Visit * Reason Comments Med Refill Encounter Details Date Type Department Care Team ([facility] st Contact Info) Description 06/17/2025 Refill [facility] [address] [place], [place] [phone] Sara North MD [address] [place], [place] [phone] Osteopenia, unspecified location Social History Tobacco Use [...] Description 08/13/2025 3:00 PM EST Office Visit [facility] [address] [place] [address] Sara North MD [address] [place] [phone] documented as of this encounter Visit Diagnoses Diagnosis Osteopenia, unspecified location documented in this encounter Additional Health Concerns Assessment Noted Time PHQ-9 Depression Total Score: 8 01/15/20 25 10:25 AM EDT documented as of this encounter Care Teams Medical Technologist Chief Relationship Specialty Start Date End Date Sara North MD [address] [place] [phone] PCP - General Family Medicine 09/26/22 Jigna Holt OD [address] [place] [phone] Optometry 10/24/24 [facility] [place] Orthopedics 10/28/24 documented as of this encounter
--- OUTSIDE RECORDS SUMMARY | 2025-07-17 21:36 | XMS_ITS | Encounter Summary ---
Author Organization [employer] Address [address] 7t [place] [address] Care Team Providers Care Medical Historian Name Role Phone Sara North MD Primary Care Provider [phone] Jigna Holt OD Unavailable [phone] Encounter Details Date Type Department Care Team (Late st Contact Info) Description 06/18/2025 Orders Only [facility] [address] [place], [place] [phone] Sara North MD [address] [place], [place] [phone] Social History Tobacco Use Types Packs/Day Years [...] Description 08/13/2025 3:00 PM EST Office Visit [facility] [address] [place] [address] Sara North MD [address] [place] [address] documented as of this encounter Visit Diagnoses Not on filedocumented in this encounter Additional Health Concerns Assessment Noted Time PHQ-9 Depression Total Score: 8 01/15/20 25 10:25 AM EDT documented as of this encounter Care Teams Medical Historian Relationship Specialty Start Date End Date Sara North MD [address] [place] [address] PCP - General Family Medicine 09/26/22 Jigna Holt OD [address] [place] [address] Optometry 10/24/24 [facility] [place] Orthopedics 10/28/24 documented as of this encounter
--- OUTSIDE RECORDS SUMMARY | 2025-07-17 21:36 | XMS_ITS | Encounter Summary ---
Author Organization [employer] Address [address] 7[address] [place] [address] Care Team Providers Care Lap Welder Name Role Phone Sara North MD Primary Care Provider [phone] Jigna Holt OD Unavailable [phone] Encounter Details Date Type Department Care Team ([facility] st Contact Info) Description 04/24/2024 Orders Only [facility] [address] [place], [place] [phone] Sara North MD [address] [place], [place] [phone] Social History Tobacco Use Types Packs/Day Years [...] Description 08/13/2025 3:00 PM EST Office Visit [facility] [address] [place], [place] [phone] Sara North MD [address] [place] [address] documented as of this encounter Visit Diagnoses Not on filedocumented in this encounter Care Teams Lap Welder Relationship Specialty Start Date End Date Sara North MD [address] [place] [phone] PCP - General Family Medicine 09/26/22 Jigna Holt OD [address] [place], [place] [phone] Optometry 10/24/24 [facility] [place] Orthopedics 10/28/24 documented as of this encounter
--- OUTSIDE RECORDS SUMMARY | 2025-07-17 21:36 | XMS_ITS | Encounter Summary ---
Author Organization [employer] Address [address] [facility] [address] 7t [place] [address] Care Team Providers Care Collections Attorney Name Role Phone Sara North MD Primary Care Provider [phone] Jonathon, Megan OD Unavailable [phone] Reason for Referral * Consultation (Routine) - Closed Specialty Diagnoses / Procedures Referred By Contac t Referred To Contact Otolaryngology Diagnoses Flat tympanogram of left ear Sara North MD [address] [place] [address] Phone: tel: fax: [facility] [address] [place] [address] Phone: tel: fax: Referral ID Status Reason Start Date Expiration Date V isits Requested Visits Authorized [id number] Closed Specialty Services Required 05/16/2025 05/16/2026 1 1 Encounter Details Date Type Department Care Team (Late st Contact Info) Description 05/16/2025 Orders Only [facility] [address] [place], [place] [phone] Sara North MD [address] [place], [place] [phone] Flat tympanogram of left ear (Primary Dx) [...] Description 08/13/2025 3:00 PM EST Office Visit [facility] [address] [place] [address] Sara North MD [address] [place] [address] Scheduled Referrals Name Type Priority Associated Diagnoses [...] PM EDT Narrative 06/14/2025 6:21 PM EDT [facility] [address] [place] [address] Mammography Report Signed Patient: Carolin Avila MR#: [id number] : 1945 Acct:[id number] Age/Sex: 80 / F ADM Date: 06/11/25 Loc: MAMMO Attending Dr: Sara North MD Ordering Physician: Sara North Results: 1Negative Date of Service: 06/11/25 Follow Up: 1 Year From Orig [facility] Mammogram Procedure(s): MM tomosynthesis screening BI Accession Number(s): [id number] cc: Sara North Reason For Exam: Z12.31 [...] 06/14/25 1818 DD/ 1538 TD/TT: 06/11/25 1550 Caisson Worker: Procedure Note Donotuseinterpreter, Image - 06/14/2025 [facility] [address] [place] [address] Mammography Report Signed Patient: Rohith Avila#: [id number] : 5Acct:[id number] Age/Sex: 80 / FADM Date: 06/11/25 Loc: ANDREW Attending Dr: Sara North MD Ordering Physician: Papo Northults: 1Negative Date of Service: 06/11/25Follow Up: 1 Year From Orig inal Mammogram Procedure(s): MM tomosynthesis screening BI Accession Number(s): [id number] cc: Sara North Reason For Exam: Z12.31 [...] 06/14/25 1818 DD/ 1538 TD/TT: 06/11/25 1550 Caisson Worker: Sara North MD IMG BI PROCEDURES Edited Resul t - Final documented in this encounter Visit Diagnoses Diagnosis Flat tympanogram of left ear- Primary documented in this encounter Additional Health Concerns Assessment Noted Time PHQ-9 Depression Total Score: 8 01/15/20 25 10:25 AM EDT documented as of this encounter Care Teams Collections Attorney Relationship Specialty Start Date End Date Sara North MD [address] [place], [place] [phone] PCP - General Family Medicine 09/26/22 Jigna Holt OD 230 [place], [place] [phone] Optometry 10/24/24 [facility] [place] [place] Orthopedics 10/28/24 documented as of this encounter
--- OUTSIDE RECORDS SUMMARY | 2025-07-17 21:36 | XMS_ITS | Encounter Summary ---
Author Organization [employer] Address [address] 7t [place] [address] Care Team Providers Care Single Stayer Operator Name Role Phone Sara North MD Primary Care Provider [phone] Jonathon, Megan OD Unavailable [phone] Reason for Referral * Imaging (Routine) - Closed Specialty Diagnoses / Procedures Referred By Contac t Referred To Contact Radiology Diagnoses Right upper quadrant abdominal pain Procedures CT Abdomen Pelvis w/ Contrast Sara North MD 230 [place] [address] Phone: tel: fax: [address] [address] Phone: tel: fax: Referral ID Status Reason Start Date Expiration Date Visits Re quested Visits Authorized [id number] Closed 10/30/2024 10/30/2025 1 1 Encounter Details Date Type Department Care Team (Late st Contact Info) Description 10/30/2024 Orders Only [facility] [address] [place], [place] [phone] Sara North MD 230 [place], [place] [phone] Right upper quadrant abdominal pain (Primary Dx) [...] Description 08/13/2025 3:00 PM EST Office Visit [facility] [address] [place] [address] Sara North MD [address] [place] [address] Scheduled Orders Name Type Priority Associated Diagnoses Orde r Schedule CT Abdomen Pelvis w/ Contrast Imaging Routine Right upper quadrant abdominal pain Expected: 10/30/2024, Expires: 10/30/2025 documented as of this encounter Visit Diagnoses Diagnosis Right upper quadrant abdominal pain- Primary documented in this encounter Care Teams Single Stayer Operator Relationship Specialty Start Date End Date Sara North MD [address] [place], [place] [phone] PCP - General Family Medicine 09/26/22 Jigna Holt OD 230 [place], [place] [phone] Optometry 10/24/24 [facility] [place] 10/28/24 documented as of this encounter
== END 2025-07-17 16:00 | disposition home or self-care (01) ==
PROVIDERS: Emergency Provider Emergency Medicine
DX: M75.31 Calcific tendinitis of right shoulder (principal); M54.2 Cervicalgia; I10 Essential (primary) hypertension; E78.00 Pure hypercholesterolemia, unspecified
CPT/HCPCS: 72125; 99283; 99284

== ENCOUNTER → 2025-07-17 12:03 | Outpatient (BNV) | payer MEDICARE, MEDICAID, SELFPAY | PROVIDERS: Visit Provider Radiology Diagnostic Radiology | DX: M54.2 Cervicalgia (principal) | CPT/HCPCS: 72125 ==

== ENCOUNTER 2025-08-12 08:52 | Outpatient (AMB) | payer MEDICARE, MEDICAID, SELFPAY ==
--- NOTE | 2025-08-12 09:03 | A.OFFVIS_ITS ---
Vital Signs 08/12/25 09:08 Height 4 ft 11 in Weight 150 lb BMI 30.3 Handedness Right Intake Visit Reasons: OV - right shoulder pain Intake Note: Carolin is a 80 year old right hand dominant female who presents today for a follow up of her right shoulder pain, last injection 06/19/25. Patient reports she went to the ED due to her pain being unbearable. She states that her last injection gave her about a day of relief and her pain came back. Patient was given at the ED naproxen and prednisone which gave her relief. Office Administration Instructor Services: Office Administration Instructor Present (Ceasar ([id number])) Allergies No Known Allergies Allergy (Verified 08/12/25 09:06) HPI HPI OV - right shoulder pain: Details: The patient is a 80-year-old right-hand dominant female who presents to the office today for posterior neck pain that radiates to the right upper extremity. Patient was recently seen in the emergency department because the pain was so severe. She reports that the cortisone injection that was administered at the last appointment gave her some relief but not complete relief. Patient endorses pain with C-spine range of motion as well as numbness and tingling in bilateral upper extremities. [facility] Medical History Osteopenia Osteoarthritis Anemia Elevated cholesterol HTN (hypertension) Surgical History (Updated 08/16/23 @ 12:50 by Cassie Lester RN) History of cholecystectomy Family History Mother Cancer Family/Other Colon cancer Social History (Updated 08/12/25 @ 09:07 by Felisha Coles) Alcohol intake: never Patient Tobacco Use Status: Never used Tobacco Current occupational status: retired Current occupation: right hand dominant Review of Systems Const All systems reviewed & are unremarkable except as noted in HPI and below Physical Exam Vital Signs: BMI result Body Mass Index 30.3 Const General: cooperative, healthy appearing and no acute distress Resp Effort & Inspection: normal respiratory effort and able to speak in complete sentences Extrem Other: Right shoulder: Normal to inspection. No ecchymosis, erythema, or edema. 90 degrees of forward flexion and abduction. Able to reach back pocket. When rotating her C-spine to the right shoulder patient is able to redemonstrate pain that radiates from the back of the neck to the right shoulder down towards the elbow. She endorses numbness and tingling in bilateral hands. Psych Appearance: grossly normal Mental Status: mental status grossly normal Attitude: cooperative Assessment & Plan Assessment & Plan (1) Cervical radiculopathy: Code(s): M54.12 - Radiculopathy, cervical region Category: Medical Plan The patient is a 80-year-old right-hand dominant female who presents to the office today for posterior neck pain that radiates to the right upper extremity. Patient was recently seen in the emergency department because the pain was so severe. She reports that the cortisone injection that was administered at the last appointment gave her some relief but not complete relief. Patient endorses pain with C-spine range of motion as well as numbness and tingling in bilateral upper extremities. While in the emergency room, the patient was given cyclobenzaprine and prednisone in which she states did not help her pain. The patient did have an MRI of the right shoulder which did demonstrate some right rotator cuff tendinitis as well as a rotator cuff tear. However, the patient's pain is more associated with cervical radiculopathy. I have recommended she follow up with physiatry for further evaluation and treatment of this. Patient understands and accepts. She will follow up with Orthopedics p.r.n., sooner if needed. Coding Level of Care Code Est Pt Level 3 (01306) Diagnoses Cervical radiculopathy M54.12
[2025-08-12 09:08] VITALS: BMI 30.3
--- OUTSIDE RECORDS SUMMARY | 2025-08-12 10:53 | XMS_ITS | Encounter Summary ---
Author Organization [employer] Address [address] 7t [place] [address] Care Team Providers Care Wet Inspector Optical Glass Name Role Phone Sara North MD Primary Care Provider [phone] Jigna Holt OD Unavailable [phone] Reason for Visit * Reason Onset Date Comments Med Refill 10/10/2023 Encounter Details Date Type Department Care Team ([facility] st Contact Info) Description 10/10/2023 Telephone [facility] [address] [place], [place] [phone] Sara North MD 230 [place], [place] [phone] Med Refill Social History Tobacco Use Types [...] 25 MG tablet To be sent to: [id number] [place], [place] - [address] [facility] documented in this encounter Plan of Treatment Upcoming Encounters Date Type Department Care Team (Late st Contact Info) Description 08/13/2025 3:00 PM EST Office Visit [facility] [address] [place] [address] Sara Norht MD [address] [place] [address] documented as of this encounter Visit Diagnoses Not on filedocumented in this encounter Care Teams Wet Inspector Optical Glass Relationship Specialty Start Date End Date Sara North MD 230 [place] [address] PCP - General Family Medicine 09/26/22 Jigna Holt OD [address] [place] [address] Optometry 10/24/24 [facility] [place] Orthopedics 10/28/24 documented as of this encounter
--- OUTSIDE RECORDS SUMMARY | 2025-08-12 10:53 | XMS_ITS | Encounter Summary ---
Author Organization [employer] Address [address] 7t [place] [address] Care Team Providers Care Trailer Steerer Name Role Phone Sara North MD Primary Care Provider [phone] JonathonJigna OD Unavailable [phone] Reason for Referral * Imaging (Routine) - Closed Specialty Diagnoses / Procedures Referred By Contac t Referred To Contact Radiology Diagnoses Right upper quadrant abdominal pain Procedures CT Abdomen Pelvis w/ Contrast Sara North MD [address] [place] [address] Phone: tel: fax: [address] [address] Phone: tel: fax: Referral ID Status Reason Start Date Expiration Date Visits Re quested Visits Authorized [id number] Closed 10/30/2024 10/30/2025 1 1 Encounter Details Date Type Department Care Team (Late st Contact Info) Description 10/30/2024 Orders Only [facility] [address] [place], [place] [phone] Sara North MD [address] [place], [place] [phone] Right upper quadrant abdominal pain (Primary Dx) [...] Description 08/13/2025 3:00 PM EST Office Visit [facility] [address] [place] [address] Sara North MD [address] [place] [address] Scheduled Orders Name Type Priority Associated Diagnoses Orde r Schedule CT Abdomen Pelvis w/ Contrast Imaging Routine Right upper quadrant abdominal pain Expected: 10/30/2024, Expires: 10/30/2025 documented as of this encounter Visit Diagnoses Diagnosis Right upper quadrant abdominal pain- Primary documented in this encounter Care Teams Trailer Steerer Relationship Specialty Start Date End Date Sara North MD [address] [place], [place] [phone] PCP - General Family Medicine 09/26/22 Jigna Holt OD 230 [place], [place] [phone] Optometry 10/24/24 [facility] [place] 10/28/24 documented as of this encounter
--- OUTSIDE RECORDS SUMMARY | 2025-08-12 10:53 | XMS_ITS | Encounter Summary ---
Author Organization [employer] Address [address] [facility] 7t [place] [address] Care Team Providers Care Agency Sales Development Associate Name Role Phone Sara North MD Primary Care Provider [phone] Jonathon, Megan OD Unavailable [phone] Reason for Referral * Consultation (Routine) - Closed Specialty Diagnoses / Procedures Referred By Contac t Referred To Contact Otolaryngology Diagnoses Flat tympanogram of left ear Sara North MD [address] [place] [address] Phone: tel: fax: [facility] [address] [place] [address] Phone: tel: fax: Referral ID Status Reason Start Date Expiration Date V isits Requested Visits Authorized [id number] Closed Specialty Services Required 05/16/2025 05/16/2026 1 1 Encounter Details Date Type Department Care Team (Late st Contact Info) Description 05/16/2025 Orders Only [facility] [address] [place], [place] [phone] Sara North MD [address] [place], [place] [phone] Flat tympanogram of left ear (Primary Dx) [...] Description 08/13/2025 3:00 PM EST Office Visit [facility] [address] [place] [address] Sara North MD [address] [place] [address] Scheduled Referrals Name Type Priority Associated Diagnoses [...] PM EDT Narrative 06/14/2025 6:21 PM EDT [facility] [address] [place] [address] Mammography Report Signed Patient: Carolin Avila MR#: [id number] : 1945 Acct:[id number] Age/Sex: 80 / F ADM Date: 06/11/25 Loc: MAMMO Attending Dr: Sara North MD Ordering Physician: Sara North Results: 1Negative Date of Service: 06/11/25 Follow Up: 1 Year From Orig [facility] Mammogram Procedure(s): MM tomosynthesis screening BI Accession Number(s): [id number] cc: Sara North Reason For Exam: Z12.31 [...] 06/14/25 1818 DD/ 1538 TD/TT: 06/11/25 1550 Embedded Software Development Engineer: Procedure Note Donotuseinterpreter, Image - 06/14/2025 [facility] [address] [place] [address] Mammography Report Signed Patient: Rohith Avila#: [id number] : 5Acct:[id number] Age/Sex: 80 / FADM Date: 06/11/25 Loc: ANDREW Attending Dr: Sara North MD Ordering Physician: Papo Northults: 1Negative Date of Service: 06/11/25Follow Up: 1 Year From Orig inal Mammogram Procedure(s): MM tomosynthesis screening BI Accession Number(s): [id number] cc: Sara North Reason For Exam: Z12.31 [...] 06/14/25 1818 DD/ 1538 TD/TT: 06/11/25 1550 Embedded Software Development Engineer: Sara North MD IMG BI PROCEDURES Edited Resul t - Final documented in this encounter Visit Diagnoses Diagnosis Flat tympanogram of left ear- Primary documented in this encounter Additional Health Concerns Assessment Noted Time PHQ-9 Depression Total Score: 8 01/15/20 25 10:25 AM EDT documented as of this encounter Care Teams Agency Sales Development Associate Relationship Specialty Start Date End Date Sara North MD 230 [place], [place] [phone] PCP - General Family Medicine 09/26/22 Jigna Holt OD [address] [place], [place] [phone] Optometry 10/24/24 [facility] [place] 10/28/24 documented as of this encounter
--- OUTSIDE RECORDS SUMMARY | 2025-08-12 10:53 | XMS_ITS | Encounter Summary ---
Author Organization [employer] Address [address] 7t [place] [address] Care Team Providers Care Coating Machine Operator Name Role Phone Sara North MD Primary Care Provider [phone] Jigna Holt OD Unavailable [phone] Encounter Details Date Type Department Care Team (Late st Contact Info) Description 06/18/2025 Orders Only [facility] 230 [place], [place] [phone] Sara North MD [address] [place], [place] [phone] Social History Tobacco Use Types Packs/Day Years [...] 08/13/2025 3:00 PM EST Office Visit [facility] [address] [place] [address] Sara North MD [address] [place] [address] documented as of this encounter Visit Diagnoses Not on filedocumented in this encounter Additional Health Concerns Assessment Noted Time PHQ-9 Depression Total Score: 8 01/15/20 25 10:25 AM EDT documented as of this encounter Care Teams Coating Machine Operator Relationship Specialty Start Date End Date Sara North MD [address] [place] [address] PCP - General Family Medicine 09/26/22 Jigna Holt OD [address] [place] [address] Optometry 10/24/24 [facility] Orthopedics 10/28/24 documented as of this encounter
--- OUTSIDE RECORDS SUMMARY | 2025-08-12 10:53 | XMS_ITS ---
MR SHOULDER WO CONTRAST RIGHT Routine 06/05/2025 6:25 PM EDT Acute pain of right shoulder LIPID PANEL, STANDARD Routine 01/02/2023 2:51 PM EDT Essential hypertension Dyslipidemia from Last 3 Months or Most Recently Relevant to Health Maintenance Results * BI Mammogram Screening Tomosynthesis Bilateral (06/11/2025 3:38 PM EDT) Anatomical Region Laterality Modality Breast Bilateral Mammography 06/11/2025 3:38 PM EDT Narrative 06/14/2025 6:21 PM EDT [facility] [place], [place] [address] Mammography Report Signed Patient: Carolin Avila MR#: [id number] : 1945 Acct:[id number] Age/Sex: 80 / F ADM Date: 06/11/25 Loc: ANDREW Attending Dr: Sara North MD Ordering Physician: Sara North Results: 1Negative Date of Service: 06/11/25 Follow Up: 1 Year From [facility] Mammogram Procedure(s): MM tomosynthesis screening BI Accession Number(s): [id number] cc: Sara North Reason For Exam: Z12.31 [...] 06/14/25 1818 DD/ 1538 TD/TT: 06/11/25 1550 Pipe Installer: Procedure Note Donotuseinterpreter, Image - 06/14/2025 [facility]'s [address] [place] [address] Mammography Report Signed Patient: Pascale AvilaR#: [id number] : 5Acct:[id number] Age/Sex: 80 / FADM Date: 06/11/25 Loc: ANDREW Attending Dr: Sara North MD Ordering Physician: Papo Northults: 1Negative Date of Service: 06/11/25Follow Up: 1 Year From Orig inal Mammogram Procedure(s): MM tomosynthesis screening BI Accession Number(s): [id number] cc: Sara North Reason For Exam: Z12.31 [...] 06/14/25 1818 DD/ 1538 TD/TT: 06/11/25 1550 Pipe Installer: us Sara North MD IMG BI PROCEDURES Edited Resul t - Final * MR Shoulder w/o Contrast Right (06/05/2025 6:25 PM EDT) Anatomical Region Laterality Modality Upper Extremities, Shoulder Right Magn etic Resonance 06/05/2025 6:25 PM EDT Narrative 06/06/2025 7:51 AM EDT [place] [address] Magnetic Resonance Report Signed Patient: Carolin Avila MR#: [id number] : 1945 Acct:[id number] Age/Sex: 80 / F ADM Date: 06/05/25 Loc: HO.MRI Attending Dr: Sara North MD Ordering Physician: Sara North Date of Service: 06/05/25 Procedure(s): MR shoulder RT wo con Accession Number(s): [id number] cc: Sara North Reason for Exam: pain and limited range of motion EXAMINATION: MR SHOULDER WITHOUT CONTRAST, RIGHT CLINICAL INFORMATION: Pain, limited range of motion. COMPARISON: X-rays 03/08/2025 TECHNIQUE: MRI of the shoulder without contrast was performed on a high-field scanner. FINDINGS: Motion artifact degrading images, limiting evaluation. ROTATOR CUFF: Moderate supraspinatus and infraspinatus tendinosis. Geiagrxy-taeq-ikive partial tear of the insertional conjoined fibers [...] and infraspinatus tendinosis. 0.6 x 0.6 cm kcjdyxia-ipyc-bdvvd partial tear in the conjoined supraspinatus/infraspinatus fibers. Possible component of intrasubstance partial tearing in the proximal supraspinatus. * Mild acromioclavicular arthritis. * Mild subacromial subdeltoid bursitis. Electronically signed by: Cali Oliva MD 06/06/2025 07:49 AM EDT RP Dictated By: Cali Oliva MD Signed By: <Electronically signed by Cali Oliva MD in OV> 06/06/25 0749 DD/ 1825 TD/TT: 06/05/25 1850 Pipe Installer: Procedure Note Donotuseinterpreter, Image - 06/06/[address] [address] Magnetic Resonance Report Signed Patient: Rohith Avila#: [id number] : 5Acct:[id number] Age/Sex: 80 / FADM Date: 06/05/25 Loc: HO.MRI Attending Dr: Sara North MD Ordering Physician: Sara North Date of Service: 06/05/25 Procedure(s): MR shoulder RT wo con Accession Number(s): [id number] cc: Sara North Reason for Exam: pain and limited range of motion EXAMINATION: MR SHOULDER WITHOUT CONTRAST, RIGHT CLINICAL INFORMATION: Pain, limited range of motion. COMPARISON: X-rays 03/08/2025 TECHNIQUE: MRI of the shoulder without contrast was performed on a high-field scanner. FINDINGS: Motion artifact degrading images, limiting evaluation. ROTATOR CUFF: Moderate supraspinatus and infraspinatus tendinosis. Jpzqitor-sczl-bxvay partial tear of the insertional conjoined fibers [...] and infraspinatus tendinosis. 0.6 x 0.6 cm wynidxjm-afwe-czvns partial tear in the conjoined supraspinatus/infraspinatus fibers. Possible component of intrasubstance partial tearing in the proximal supraspinatus. * Mild acromioclavicular arthritis. * Mild subacromial subdeltoid bursitis. Electronically signed by: Cali Oliva MD 06/06/2025 07:49 AM EDT Dictated By: Cali Oliva MD Signed By: <Electronically signed by Cali Oliva MD in OV> 06/06/25 0749 DD/ 1825 TD/TT: 06/05/25 1850 Pipe Installer: GABRIELA Sara North MD IM MRI PROCEDURES Final Resul t * Lipid Panel, Standard (01/02/2023 2:51 PM EDT) Cholesterol, Total 132 <200 mg/dL [facility] [employer] [facility] HDL Cholesterol 57 > OR = 50 mg/dL [facility] Triglycerides 105 <150 mg/dL [facility] [place] [facility] LDL Cholesterol 56 mg/dL (calc) [facility] [place] [facility] Comment: Reference range: <100 Desirable range <100 mg/dL for primary prevention; <70 mg/dL for patients with CHD or diabetic patients with > or = 2 CHD risk factors. LDL-C is now calculated using the Kai calculation, which is a validated novel method providing better accuracy than the Friedewald equation in the estimation of LDL-C. Wu SS et al. DARIEL. 2013;310(19): 4003-3332 (http://education.CloudEngine/faq/VMA027) Chol/HDLC Ratio 2.3 <5.0 (calc) [facility] Non-HDL Cholesterol 75 <130 mg/dL (calc) [facility] Comment: For patients with diabetes plus 1 major ASCVD risk factor, treating to a non-HDL-C goal of <100 mg/dL (LDL-C of <70 mg/dL) is considered a therapeutic option. Blood Venous blood specimen / Unknown 01/02/2023 2:51 PM EDT 01/02/2023 2:52 PM EDT Narrative [facility] - 01/03/2023 12:27 PM EDT FASTING:UNKNOWN COLLECTION KIT GIVEN TO PATIENT. PATIENT ADVISED TO RETURN. FASTING: UNKNOWN Sara North MD LAB BLOOD ORDERABLES Final Res ult [facility] [address], [place] [address] [facility] [place] [facility] [address] [place] [address] from Last 3 Months or Most Recently Relevant to Health Maintenance Insurance [facility] STANDARD Care Teams Curve Cleaner Relationship Specialty Start Date End Date Sara North MD [address] [place] [address] PCP - General Family Medicine 09/26/22 Jigna Holt OD [address] [place] [address] Optometry 10/24/24 [facility] [place]opedics 10/28/24 Clinical Summary Created on: August 12, 2025 Carolin Avila : 1945 Sex: Female Author Organization [employer] Address [address] [facility] 7t [place] [address] Care Team Providers Care Curve Cleaner Name Role Phone Sara North MD Primary Care Provider Jigna Holt OD Unavailable [phone] Allergies No known active allergies Medications [...] per day. 90 tablet 3 5 Active ketorolac (Toradol) 10 MG tablet Take 1 tablet by mouth if needed in the morning and at bedtime for pain. 5 Active LORazepam (Ativan) 0.5 MG tablet Take 1 tablet (0.5 mg) by mouth Once daily as needed for anxiety (20 minutes before MRI) for up to 1 day. 1 tablet 5 Active acetaminophen (8 HR Arthritis Pain Relief) 650 MG ER tabletIndications: Acute pain of right shoulder Take 1 tablet (650 mg) by mouth every 8 (eight) hours if needed for mild pain. Do not crush, chew, or split. 30 tablet 5 Active tiZANidine (Zanaflex) 2 MG tablet Take 1 tablet (2 mg) by mouth at bedtime. 30 tablet 5 Active Active Problems Problem Noted Date [...] EDT): She has not heard yet for [employer] evaluation services, will check in with medical records to see if they know which agency she was referred to, and to give them a call to schedule in home evaluation Assessment & Plan (08/18/2023 8:33 AM EST): Recommend [employer] for bathing, shopping, cooking and dressing needs Assessment & Plan (07/12/2023 4:45 PM EST): Recommend [employer] for bathing and clothing needs Hypercalcemia 05/26/2023 [...] consider TKA, last saw Dr Steve at [facility] [place] 05/2022, will re-refer for this followup discussion [...] Encounters Date Type Department Care Team Description 08/06/2025 Travel 07/18/2025 Telephone [facility] [address] [place] [address] Sara North MD Nurse Triage 06/18/2025 Orders Only [facility] [address] [place] [address] Sara North MD 06/17/2025 Refill [facility] [address] [place] [address] Sara North MD Osteopenia, unspecified location 06/09/2025 Refill [facility] [address] [place] [address] Sara North MD Acute pain of right shoulder 06/06/2025 Results Follow-Up [facility] [address] [facility] [address] Sara North MD MR Shoulder w/o Contrast Right 05/29/2025 Telephone [facility] [address] [place] [address] Sara North MD 05/16/2025 Orders Only [facility] [address] [place] [address] Sara North MD Flat tympanogram of left ear (Primary Dx) from Last 3 Months Immunizations Immunization Administration [...] Relation Name Status Comments Brother Father Mother Keica Niece Jessie Sister 1 Solange Sister 2 [...] 08/13/2025 3:00 PM EST Office Visit [facility] [address] [place] [address] Sara North MD [address] [place] [address] Health Maintenance Due Date Last Done Comments RSV Patients and Patients Aged 60 years or older (1 - 1-dose 75+ series) 2020 COVID-19 Vaccine ( season) 2025 08/17/2024, 01/22/2022, 05/11/2021, Additional history exists Influenza Vaccine (#1) 2025 , 05/12/2023, 06/27/2022, Additional history exists Alcohol/Substance Use Screening 10/28/2025 10/28/2024 SDOH Screening 10/28/2025 10/28/2024 Depression Screening 01/14/2026 01/14/2025, 01/15/20 25 Tobacco Screening 05/09/2026 05/09/2025 DTaP/Tdap/Td Vaccines (2 [...]
--- OUTSIDE RECORDS SUMMARY | 2025-08-12 10:53 | XMS_ITS | Encounter Summary ---
Author Organization [employer] Address [address] [facility] [address] 7[address] [place] [address] Care Team Providers Care Classroom Monitor Name Role Phone Sara North MD Primary Care Provider [phone] Jigna Holt OD Unavailable [phone] Encounter Details Date Type Department Care Team ([facility] st Contact Info) Description 04/24/2024 Orders Only [facility] [address] [place], [place] [phone] Sara North MD [address] [place], [place] [phone] Social History Tobacco Use Types Packs/Day Years [...] Description 08/13/2025 3:00 PM EST Office Visit [facility] [address] [place], [place] [phone] Sara North MD [address] [place] [address] documented as of this encounter Visit Diagnoses Not on filedocumented in this encounter Care Teams Classroom Monitor Relationship Specialty Start Date End Date Sara North MD [address] [place] [phone] PCP - General Family Medicine 09/26/22 Jigna Holt OD [address] [place], [place] [phone] Optometry 10/24/24 [facility] [place] Orthopedics 10/28/24 documented as of this encounter
--- OUTSIDE RECORDS SUMMARY | 2025-08-12 10:53 | XMS_ITS | Encounter Summary ---
Author Organization [employer] Address [address] [facility] [address] 7[address] [place] [address] Care Team Providers Care Strickler Attendant Name Role Phone Sara North MD Primary Care Provider [phone] Jigna Holt OD Unavailable [phone] Reason for Visit * Reason Comments Med Refill Encounter Details Date Type Department Care Team ([facility] st Contact Info) Description 06/17/2025 Refill [facility] [address] [place], [place] [phone] Sara North MD 230 [place], [place] [phone] Osteopenia, unspecified location Social History Tobacco Use [...] Office Visit [facility] MEDICINE [address] [place] [address] Sara North MD [address] [place] [address] documented as of this encounter Visit Diagnoses Diagnosis Osteopenia, unspecified location documented in this encounter Additional Health Concerns Assessment Noted Time PHQ-9 Depression Total Score: 8 01/15/20 25 10:25 AM EDT documented as of this encounter Care Teams Strickler Attendant Relationship Specialty Start Date End Date Sara North MD [address] [place] [address] PCP - General Family Medicine 09/26/22 Jigna Holt OD [address] [place] [phone] Optometry 10/24/24 [facility] [place] Orthopedics 10/28/24 documented as of this encounter
== END 2025-08-12 09:34 | disposition home or self-care (01) ==
LOC: HO.HOS 08:53
PROVIDERS: Visit Provider Physician Assistant
DX: M54.12 Radiculopathy, cervical region (principal)
CPT/HCPCS: 99213

== ENCOUNTER → 2025-08-12 08:52 | Outpatient (BNVA) | payer MEDICARE, MEDICAID, SELFPAY | PROVIDERS: Visit Provider Physician Assistant | DX: M54.12 Radiculopathy, cervical region (principal) | CPT/HCPCS: 99212 ==

== ENCOUNTER 2025-08-13 15:17 | Outpatient (REF) | payer MEDICARE, MEDICAID, SELFPAY ==
--- OUTSIDE RECORDS SUMMARY | 2025-08-13 15:00 | XMS_ITS | Encounter Summary ---
Author Organization [employer] Address [address] [facility] [address] 7t [place] [address] Care Team Providers Care Word Processor Name Role Phone Sara North MD Primary Care Provider [phone] Jigna Holt OD Unavailable [phone] Reason for Visit * Reason Comments Follow-up Encounter Details Date Type Department Care Team ([facility] st Contact Info) Description 08/13/2025 3:00 PM EST Office Visit [facility] MED[facility] 230 [place], [place] [phone] Sara North MD 230 [place], [place] [phone] Rheumatoid arthritis involving both hands, unspecified whether rheumatoid factor present (CMS/HCC) (HCC) (Primary Dx); Right upper quadrant pain Social History Tobacco Use Types Packs/Day Years [...] Sign Reading Time Taken Comments Blood Pressure 104/60 08/13/2025 2:52 PM EST Pulse 97 08/13/2025 2:52 PM EST Temperature 36.1 C (96.9 F) 08/13/2025 2:52 PM EST Respiratory Rate 18 08/13/2025 2:52 PM EST Oxygen Saturation 96% 08/13/2025 2:52 PM EST Inhaled Oxygen Concentration - - Weight 61.9 kg (136 lb 6.4 oz) 08/13/2025 2:52 P M EST Height 147.3 cm (4' 10 ) 08/13/2025 2:52 PM EST Body Mass Index 28.51 08/13/2025 2:52 PM EST documented in this encounter Plan of Treatment Scheduled Orders Name Type Priority Associated Diagnoses Orde r Schedule Comprehensive Metabolic Panel Lab Routine Right upper quadrant pain Expected: 08/13/2025 (Approximate), Expires: 08/13/2026 Lipase Lab Routine Right upper quadrant pain Expected: 08/13/2025, Expires: 08/13/2026 CBC auto differential Lab Routine Right upper quadrant pain Expected: 08/13/2025 (Approximate), Expires: 08/13/2026 documented as of this encounter Visit Diagnoses Diagnosis Rheumatoid arthritis involving both hands, unspecified whether rheumatoid factor present (CMS/HCC) (HCC)- Primary Right upper quadrant pain Abdominal pain, right upper quadrant documented in this encounter Additional Health Concerns Assessment Noted Time PHQ-9 Depression Total Score: 8 01/15/20 25 10:25 AM EDT documented as of this encounter Care Teams Word Processor Relationship Specialty Start Date End Date Sara North MD [address] [place] [address] PCP - General Family Medicine 09/26/22 Jigna Holt OD [address] [place] [address] Optometry 10/24/24 [facility] Orthopedics 10/28/24 documented as of this encounter
--- OUTSIDE RECORDS SUMMARY | 2025-08-13 15:56 | XMS_ITS | Encounter Summary ---
Author Organization [employer] Address [address] [facility] 7t [place] [address] Care Team Providers Care Salvage Machine Operator Name Role Phone Sara North MD Primary Care Provider [phone] Jonathon, Megan OD Unavailable [phone] Reason for Referral * Consultation (Routine) - Closed Specialty Diagnoses / Procedures Referred By Contac t Referred To Contact Otolaryngology Diagnoses Flat tympanogram of left ear Sara North MD [address] [place] [address] Phone: tel: fax: [facility] [address] [place] [address] Phone: tel: fax: Referral ID Status Reason Start Date Expiration Date V isits Requested Visits Authorized [id number] Closed Specialty Services Required 05/16/2025 05/16/2026 1 1 Encounter Details Date Type Department Care Team (Late st Contact Info) Description 05/16/2025 Orders Only [facility] MEDICINE [address] [place], [place] [phone] Sara North MD [address] [place], [place] [phone] Flat tympanogram of left ear (Primary Dx) [...] of this encounter Plan of Treatment Scheduled Referrals [...] PM EDT Narrative 06/14/2025 6:21 PM EDT [facility] [address] [place] [address] Mammography Report Signed Patient: Carolin Avila MR#: [id number] : 1945 Acct:[id number] Age/Sex: 80 / F ADM Date: 06/11/25 Loc: MAMMO Attending Dr: Sara North MD Ordering Physician: Sara North Results: 1Negative Date of Service: 06/11/25 Follow Up: 1 Year From Orig inal Mammogram Procedure(s): MM tomosynthesis screening BI Accession Number(s): [id number] cc: Sara North Reason For Exam: Z12.31 [...] 06/14/25 1818 DD/ 1538 TD/TT: 06/11/25 1550 Welcome Desk Agent: Procedure Note Donotmarco ainterpreter, Image - 06/14/2025 [facility] [address] [place], [place] [address] Mammography Report Signed Patient: Pascale AvilaR#: [id number] : 5Acct:[id number] Age/Sex: 80 / FADM Date: 06/11/25 Loc: HO.MAMMO Attending Dr: Sara North MD Ordering Physician: Papo Northults: 1Negative Date of Service: 06/11/25Follow Up: 1 Year From Orig inal Mammogram Procedure(s): MM tomosynthesis screening BI Accession Number(s): [id number] cc: Sara North Reason For Exam: Z12.31 [...] 06/14/25 1818 DD/ 1538 TD/TT: 06/11/25 1550 Welcome Desk Agent: Sara North MD IMG BI PROCEDURES Edited Resul t - Final documented in this encounter Visit Diagnoses Diagnosis Flat tympanogram of left ear- Primary documented in this encounter Additional Health Concerns Assessment Noted Time PHQ-9 Depression Total Score: 8 01/15/20 25 10:25 AM EDT documented as of this encounter Care Teams Salvage Machine Operator Relationship Specialty Start Date End Date Sara North MD [address] [place], [place] [phone] PCP - General Family Medicine 09/26/22 Jigna Holt OD [address] [place] [address] Optometry 10/24/24 [facility] Orthopedics 10/28/24 documented as of this encounter
--- OUTSIDE RECORDS SUMMARY | 2025-08-13 15:56 | XMS_ITS | Encounter Summary ---
Author Organization [employer] Address [address] [facility] [address] 7t [place] [address] Care Team Providers Care Telecommunications Facility Examiner Name Role Phone Sara North MD Primary Care Provider [phone] Jigna Holt OD Unavailable [phone] Encounter Details Date Type Department Care Team ([facility] st Contact Info) Description 04/24/2024 Orders Only [facility]INE 230 [place], [place] [phone] Sara North MD [address] [place], [place] [phone] Social History Tobacco Use Types Packs/Day Years [...] on filedocumented in this encounter Care Teams Telecommunications Facility Examiner Relationship Specialty Start Date End Date Sara North MD [address] [place] [address] PCP - General Family Medicine 09/26/22 Jigna Holt OD [address] [place] [address] Optometry 10/24/24 [facility] 10/28/24 documented as of this encounter
--- OUTSIDE RECORDS SUMMARY | 2025-08-13 15:56 | XMS_ITS | Encounter Summary ---
Author Organization [employer] Address [address] [facility] [facility] [address] 7[address] [place] [address] Care Team Providers Care Technical Mgr Name Role Phone Sara North MD Primary Care Provider [phone] JonathonJigna OD Unavailable [phone] Reason for Referral * Imaging (Routine) - Closed Specialty Diagnoses / Procedures Referred By Contac t Referred To Contact Radiology Diagnoses Right upper quadrant abdominal pain Procedures CT Abdomen Pelvis w/ Contrast Sara North MD [address] [place] [address] Phone: tel: fax: [address] [address] Phone: tel: fax: Referral ID Status Reason Start Date Expiration Date Visits Re quested Visits Authorized [id number] Closed 10/30/2024 10/30/2025 1 1 Encounter Details Date Type Department Care Team (Late st Contact Info) Description 10/30/[address] [facility] MEDICINE [address] [place], [place] [phone] Sara North MD [address] [place], [place] [phone] Right upper quadrant abdominal pain (Primary Dx) [...] Primary documented in this encounter Care Teams Technical Mgr Relationship Specialty Start Date End Date Sara North MD [address] [place] [address] PCP - General Family Medicine 09/26/22 Jigna Holt OD [address] [place] [address] Optometry 10/24/24 [facility] Orthopedics 10/28/24 documented as of this encounter
--- OUTSIDE RECORDS SUMMARY | 2025-08-13 15:56 | XMS_ITS | Clinical Summary ---
Author Organization [employer] Address [address] [place] [address] Care Team Providers Care Client Server Developer Name Role Phone Sara North MD Primary Care Provider Jigna Holt OD Unavailable [phone] Allergies No known active allergies Medications [...] mouth at bedtime. 30 tablet 5 Active cyclobenzaprine (Flexeril) 10 MG tablet Take 10 mg by mouth. 5 Active Active Problems Problem Noted Date Diagnosed Date Rheumatoid arthritis involvi ng both hands, unspecified whether rheumatoid factor present ([facility]) 08/12/2025 Arthritis of left hand 08/12/2025 Precordial chest pain 08/12/2025 Right shoulder pain 08/12/2025 Right supraspinatus tendonitis 08/12/2025 Rotator cuff tear arthropathy of right shoulder 08/12/2025 Bereavement 01/13/2025 Assessment & Plan (01/14/2025 10:34 [...] EDT): She has not heard yet for [employer] evaluation services, will check in with medical records to see if they know which agency she was referred to, and to give them a call to schedule in home evaluation Assessment & Plan (08/18/2023 8:33 AM EST): Recommend [employer] [facility] for bathing, shopping, cooking and dressing needs Assessment & Plan (07/12/2023 4:45 PM EST): Recommend [facility] [facility] [facility] for bathing and clothing needs Hypercalcemia 05/26/2023 [...] consider TKA, last saw Dr Steve at [facility] 05/2022, will re-refer for this followup discussion [...] Encounters Date Type Department Care Team Description 08/13/2025 3:00 PM EST Office Visit [facility] [place] [address] Sara North MD Rheumatoid arthritis involving both hands, unspecified whether rheumatoid factor present (CMS/HCC) ([facility]) (Primary Dx); Right upper quadrant pain 08/13/2025 Travel 08/12/2025 Telephone [facility] [address] [place] [address] Sara North MD chart prep 08/06/2025 Travel 07/18/2025 Telephone [facility] [address] [place] [address] Sara North MD Nurse Triage 06/18/2025 Orders Only [facility] [address] [place] [address] Sara North MD 06/17/2025 Refill [facility] [address] [place] [address] Sara North MD Osteopenia, unspecified location 06/09/2025 Refill [facility] [address] [facility] [place] [address] Sara North MD Acute pain of right shoulder 06/06/2025 Results Follow-Up [facility] [place] [address] Sara North MD MR Shoulder w/o Contrast Right 05/29/[address] [place] [phone] Sara North MD 05/16/2025 Orders Only [facility] [place] [address] Sara North MD Flat tympanogram of left [...] Mass Index 28.51 08/13/2025 2:52 PM EST Plan of Treatment Health Maintenance Due Date Last Done Comments Zoster Vaccines (1 of 2) 02/03/2018 02/03/2018, 11/13 RSV Patients and Patients Aged 60 years or older (1 - 1-dose 75+ series) 2020 COVID-19 Vaccine ( season) 2025 08/17/2024, 01/22/2022, 05/11/2021, Additional history exists Influenza Vaccine (#1) 2025 , 05/12/2023, 06/27/2022, Additional history exists Alcohol/Substance Use Screening 10/28/2025 10/28/2024 SDOH Screening 10/28/2025 10/28/2024 Depression Screening 01/14/2026 01/14/2025, 01/15/20 25 Tobacco Screening 08/13/2026 08/13/2025 DTaP/Tdap/Td Vaccines (2 - Td or Tdap) 01/12/2027 01/12/2017 Lipid Panel 01/03/2028 01/02/2023, 05/09/2022 Pneumococcal Vaccine: 50+ Years Completed 06/27/2022, 11/06/2018 [...] PM EDT Narrative 06/14/2025 6:21 PM EDT [facility] [address] [place] [address] Mammography Report Signed Patient: Carolin Avila MR#: [id number] : 1945 Acct:[id number] Age/Sex: 80 / F ADM Date: 06/11/25 Loc: ANDREW Attending Dr: Sara North MD Ordering Physician: Sara North Results: 1Negative Date of Service: 06/11/25 Follow Up: 1 Year From [facility] ina Mammogram Procedure(s): MM tomosynthesis screening BI Accession Number(s): [id number] cc: Sara North Reason For Exam: Z12.31 [...] 06/14/25 1818 DD/ 1538 TD/TT: 06/11/25 1550 Metals Sales Representative: Procedure Note Donotuseinterpreter, Image - 06/14/2025 [facility] [address] [place] [address] Mammography Report Signed Patient: Rohith Avila#: [id number] : 5Acct:[id number] Age/Sex: 80 / FADM Date: 06/11/25 Loc: RANO Attending Dr: Sara North MD Ordering Physician: Papo Northults: 1Negative Date of Service: 06/11/25Follow Up: 1 Year From Orig ina Mammogram Procedure(s): MM tomosynthesis screening BI Accession Number(s): [id number] cc: Sara North Reason For Exam: Z12.31 [...] 06/14/25 1818 DD/ 1538 TD/TT: 06/11/25 1550 Metals Sales Representative: us Sara North MD IMG BI PROCEDURES Edited Resul t - Final * MR Shoulder w/o Contrast Right (06/05/2025 6:25 PM EDT) Anatomical Region Laterality Modality Upper Extremities, Shoulder Right Magn etic Resonance 06/05/2025 6:25 PM EDT Narrative 06/06/2025 7:51 AM EDT [place] [address] Magnetic Resonance Report Signed Patient: Carolin Avila MR#: [id number] : 1945 Acct:[id number] Age/Sex: 80 / F ADM Date: 06/05/25 Loc: HO.MRI Attending Dr: Sara North MD Ordering Physician: Sara North Date of Service: 06/05/25 Procedure(s): MR shoulder RT wo con Accession Number(s): [id number] cc: Sara North Reason for Exam: pain and limited range of motion EXAMINATION: MR SHOULDER WITHOUT CONTRAST, RIGHT CLINICAL INFORMATION: Pain, limited range of motion. COMPARISON: X-rays 03/08/2025 TECHNIQUE: MRI of the shoulder without contrast was performed on a high-field scanner. FINDINGS: Motion artifact degrading images, limiting evaluation. ROTATOR CUFF: Moderate supraspinatus and infraspinatus tendinosis. Vaodatbk-wnmq-wugfa partial tear of the insertional conjoined fibers [...] and infraspinatus tendinosis. 0.6 x 0.6 cm jrpznobs-zjfm-fdhzp partial tear in the conjoined supraspinatus/infraspinatus fibers. Possible component of intrasubstance partial tearing in the proximal supraspinatus. * Mild acromioclavicular arthritis. * Mild subacromial subdeltoid bursitis. Electronically signed by: Cali Oliva MD 06/06/2025 07:49 AM EDT Dictated By: Cali Oliva MD Signed By: <Electronically signed by Cali Oliva MD in OV> 06/06/25 0749 DD/ 1825 TD/TT: 06/05/25 1850 Metals Sales Representative: GABRIELA Procedure Note Donotuseinterpreter, Image - 06/06/2025 [place] [address] Magnetic Resonance Report Signed Patient: Rohith Avila#: [id number] : 5Acct:[id number] Age/Sex: 80 / FADM Date: 06/05/25 Loc: HO.MRI Attending Dr: Sara North MD Ordering Physician: Sara North Date of Service: 06/05/25 Procedure(s): MR shoulder RT wo con Accession Number(s): [id number] cc: Sara North Reason for Exam: pain and limited range of motion EXAMINATION: MR SHOULDER WITHOUT CONTRAST, RIGHT CLINICAL INFORMATION: Pain, limited range of motion. COMPARISON: X-rays 03/08/2025 TECHNIQUE: MRI of the shoulder without contrast was performed on a high-field scanner. FINDINGS: Motion artifact degrading images, limiting evaluation. ROTATOR CUFF: Moderate supraspinatus and infraspinatus tendinosis. Hbqawqhs-hqih-pxjgn partial tear of the insertional conjoined fibers [...] and infraspinatus tendinosis. 0.6 x 0.6 cm dkjtdmjo-bkdp-aujil partial tear in the conjoined supraspinatus/infraspinatus fibers. Possible component of intrasubstance partial tearing in the proximal supraspinatus. * Mild acromioclavicular arthritis. * Mild subacromial subdeltoid bursitis. Electronically signed by: Cali Oliva MD 06/06/2025 07:49 AM EDT Dictated By: Cali Oliva MD Signed By: <Electronically signed by Cali Oliva MD in OV> 06/06/25 0749 DD/ 1825 TD/TT: 06/05/25 1850 Metals Sales Representative: Sara North MD [facility] MRI PROCEDURES Final Resul t * Lipid Panel, Standard (01/02/2023 2:51 PM EDT) Cholesterol, Total 132 <200 mg/dL [facility] HDL Cholesterol 57 > OR = 50 mg/dL [address] [facility] Triglycerides 105 <150 mg/dL [address] [facility] LDL Cholesterol 56 mg/dL (calc) [employer] Comment: Reference range: <100 Desirable range <100 mg/dL for primary prevention; <70 mg/dL for patients with CHD or diabetic patients with > or = 2 CHD risk factors. LDL-C is now calculated using the Kai calculation, which is a validated novel method providing better accuracy than the Friedewald equation in the estimation of LDL-C. Wu SS et al. DARIEL. 2013;310(19): 9909-6957 (http://education.[employer]/faq/PUM983) Chol/HDLC Ratio 2.3 <5.0 (calc) [employer] Non-HDL Cholesterol 75 <130 mg/dL (calc) [employer] Comment: For patients with diabetes plus 1 [...] BLOOD ORDERABLES Final Res ult [facility] [address], [place] [address] [facility] [address] [place] [address] from Last 3 Months or Most Recently Relevant to Health Maintenance Insurance MEDICARE [facility] Care Teams Client Server Developer Relationship Specialty Start Date End Date Sara North MD [address] [place] [address] PCP - General Family Medicine 09/26/22 Jigna Holt OD [address] [place] [address] Optometry 10/24/24 [facility] Orthopedics 10/28/24
--- OUTSIDE RECORDS SUMMARY | 2025-08-13 15:56 | XMS_ITS | Encounter Summary ---
Author Organization [employer] Address [address] [place] [address] Care Team Providers Care Interactive Web Developer Name Role Phone Sara North MD Primary Care Provider [phone] Jigna Holt OD Unavailable [phone] Reason for Visit * Reason Comments Med Refill Encounter Details Date Type Department Care Team ([facility] st Contact Info) Description 06/17/2025 Refill [facility] [address] [place], [place] [phone] Sara North MD [address] [place], [place] [phone] Osteopenia, unspecified location Social History Tobacco Use [...] documented as of this encounter Care Teams Interactive Web Developer Relationship Specialty Start Date End Date Sara North MD [address] [place] [address] PCP - General Family Medicine 09/26/22 Jigna Holt OD [address] [place] [address] Optometry 10/24/24 [facility] 10/28/24 documented as of this encounter
--- OUTSIDE RECORDS SUMMARY | 2025-08-13 15:56 | XMS_ITS | Encounter Summary ---
Author Organization [employer] Address [address] [place] [address] Care Team Providers Care Risk Management Professional Name Role Phone Sara North MD Primary Care Provider [phone] Jigna Holt OD Unavailable [phone] Encounter Details Date Type Department Care Team (Latest Contact Info) Description 08/13/2025 Travel Social History Tobacco Use Types Packs/Day [...] documented as of this encounter Care Teams Risk Management Professional Relationship Specialty Start Date End Date Sara North MD [address] [place] [address] PCP - General Family Medicine 09/26/22 Jigna Holt OD [address] [place] [address] Optometry 10/24/24 [facility] Orthopedics 10/28/24 documented as of this encounter
--- OUTSIDE RECORDS SUMMARY | 2025-08-13 15:56 | XMS_ITS | Encounter Summary ---
Author Organization [employer] Address [address] [place] [address] Care Team Providers Care Promotions Assistant Sales Marketing Name Role Phone Sara North MD Primary Care Provider [phone] Jigna Holt OD Unavailable [phone] Reason for Visit * Reason Onset Date Comments Med Refill 10/10/2023 Encounter Details Date Type Department Care Team ([facility] st Contact Info) Description 10/10/2023 Telephone [facility] [address] [place], [place] [phone] Sara North MD [address] [place], [place] [phone] Med Refill Social History Tobacco Use Types [...] 25 MG tablet To be sent to: [id number] [place], [place] - [address] [facility] documented in this encounter Plan of Treatment Not on file documented as of this encounter Visit Diagnoses Not on filedocumented in this encounter Care Teams Promotions Assistant Sales Marketing Relationship Specialty Start Date End Date Sara North MD [address] [place], [place] [phone] PCP - General Family Medicine 09/26/22 Jigna Holt OD [address] [place], [place] [phone] Optometry 10/24/24 [facility] Orthopedics 10/28/24 documented as of this encounter
--- OUTSIDE RECORDS SUMMARY | 2025-08-13 15:56 | XMS_ITS | Encounter Summary ---
Author Organization [employer] Address [address] [place] [address] Care Team Providers Care Local Announcer Name Role Phone Sara North MD Primary Care Provider [phone] Jigna Holt OD Unavailable [phone] Encounter Details Date Type Department Care Team (Late st Contact Info) Description 06/18/2025 Orders Only [facility] [address] [place], [place] [phone] Sara North MD [address] [place], [place] [phone] Social History Tobacco Use Types Packs/Day Years [...] Time PHQ-9 Depression Total Score: 8 01/15/20 10:25 AM EDT documented as of this encounter Care Teams Local Announcer Relationship Specialty Start Date End Date Sara North MD [address] [place], [place] [phone] PCP - General Family Medicine 09/26/22 Jigna Holt OD [address] [place] [address] Optometry 10/24/24 [facility] 10/28/24 documented as of this encounter
--- OUTSIDE RECORDS SUMMARY | 2025-08-13 15:56 | XMS_ITS | Encounter Summary ---
Author Organization [employer] Address [address] [place] [address] Care Team Providers Care Small Stock Facer Name Role Phone Sara North MD Primary Care Provider [phone] Jigna Holt OD Unavailable [phone] Reason for Visit * Reason Onset Date Comments chart prep 08/12/2025 Encounter Details Date Type Department Care Team ([facility] st Contact Info) Description 08/12/2025 Telephone [facility] [address] [place] [address] Sara North MD [address] [place], [place] [phone] chart prep Social History Tobacco Use Types Packs/Day Years [...] encounter Miscellaneous Notes * Telephone Encounter - Leno Fried [place] - 08/12/2025 12:46 PM EST Chart Prep Labs: done Images: done Referrals: complete Vaccines due: Covid, Flu, and RSV Screenings: not applicable Overdue care gaps: Not applicable documented in this encounter Plan of Treatment Not on file documented as of this encounter Visit Diagnoses Not on filedocumented in this encounter Additional Health Concerns Assessment Noted Time PHQ-9 Depression Total Score: 8 01/15/20 25 10:25 AM EDT documented as of this encounter Care Teams Small Stock Facer Relationship Specialty Start Date End Date Sara North MD [address] [place] [address] PCP - General Family Medicine 09/26/22 Jigna Holt OD [address] [place] [address] Optometry 10/24/24 [facility] Orthopedics 10/28/24 documented as of this encounter
[2025-08-13 16:22] LABS: MANUAL DIFF FLAG NO
[2025-08-13 16:40] LABS: Hematocrit 31.3 % (37.0-47.0); Hemoglobin 10.0 g/dl (12.0-16.0); Imm Gran Abs Auto 0.03 X10*3/uL (0.00-0.03); Imm Gran Pct Auto 0.4 % (0.0-0.4); Lymphocytes Absolute Auto 1.2 X10*3/uL (1.2-4.9); Mean Corpuscular HGB Conc 31.9 g/dl (31.0-35.0); Mean Corpuscular Hemoglobin 26.3 pg (27.0-33.0); Mean Corpuscular Volume 82.4 fL (80.0-98.0); NRBC Abs Auto 0.000 X10*3/uL (0.0-0.012); NRBC Pct Auto 0.0 /100WBC (0.0-0.2); Platelet Count 362 X10*3/uL (160-400); Red Blood Count 3.80 X10*6/uL (4.20-5.50); White Blood Count 6.9 X10*3/uL (4.8-10.8)
[2025-08-13 17:44] LABS: Alanine Aminotransferase 129 U/L (0-31); Albumin Level 4.5 g/dL (3.5-5.0); Alkaline Phosphatase 422 U/L (39-117); Anion Gap 14 (12-20); Aspartate Amino Transferase 49 U/L (5-31); Blood Urea Nitrogen 27 mg/dL (9-16); Calcium 10.2 mg/dL (8.4-10.2); Carbon Dioxide 25 mmol/L (22-29); Chloride 105 mmol/L (96-108); Estimated Glomerular Filt Rate 48; Lipase 35 U/L (8-78); Potassium 4.4 mmol/L (3.3-5.1); Sodium 140 mmol/L (135-145); Total Protein 8.3 g/dL (6.5-8.0)
== END 2025-08-13 15:18 | disposition home or self-care (01) ==
LOC: HO.HHCL 15:17
PROVIDERS: PCP General Practice; Visit Provider General Practice
DX: R10.11 Right upper quadrant pain (principal)
CPT/HCPCS: 36415; 80053; 83690; 85025